=== PATIENT | female | born 1965 | race Caucasian/White ===

== ENCOUNTER → 2020-03-15 13:19 | Outpatient (CLI) | payer OTHER, SELFPAY ==
--- NOTE | ~2020-03-15 | MM_ITS ---
EXAMINATION: MM screening angelica BI w rosio HISTORY: Screening mammogram TECHNIQUE: Craniocaudal and mediolateral oblique 3-D tomosynthesis images were obtained and synthetic 2-D images were generated. CAD analysis was submitted and interpreted. COMPARISON: Comparison to multiple prior studies sequentially, with oldest reviewed study dated 04/2012. BREAST PARENCHYMAL COMPOSITION: The breasts are heterogeneously dense, which may obscure small masses . FINDINGS: There is no evidence of suspicious mass, calcification, or architectural distortion to sugg est malignancy in either breast. There has been no suspicious interval change. IMPRESSION: 1. No mammographic evidence of malignancy. 2. Recommend routine screening mammography in one year. BI-RADS Category 1: Negative Reviewed, dictated and finalized at location A.
== END ==
PROVIDERS: Visit Provider Obstetrics & Gynecology
DX: Z12.31 Encounter for screening mammogram for malignant neoplasm of breast (principal)
CPT/HCPCS: 77063; 77067

== ENCOUNTER 2020-05-31 11:45 | Outpatient (CLI) | payer OTHER, SELFPAY ==
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
== END 2020-05-31 11:46 | disposition home or self-care (01) ==
PROVIDERS: PCP Family Medicine; Visit Provider Physician Assistant
DX: S22.42XA Multiple fractures of ribs, left side, initial encounter for closed fracture (principal); X58.XXXA Exposure to other specified factors, initial encounter; M25.422 Effusion, left elbow; M19.022 Primary osteoarthritis, left elbow
CPT/HCPCS: 71046; 71100; 73030; 73080

== ENCOUNTER → 2020-06-15 10:15 | Outpatient (CLI) | payer OTHER, SELFPAY ==
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
== END ==
PROVIDERS: Visit Provider Orthopaedic Surgery
DX: M81.0 Age-related osteoporosis without current pathological fracture (principal); M85.852 Other specified disorders of bone density and structure, left thigh; M85.851 Other specified disorders of bone density and structure, right thigh
CPT/HCPCS: 77080

== ENCOUNTER → 2021-01-17 12:26 | Outpatient (CLI) | payer OTHER, SELFPAY ==
--- NOTE | ~2021-01-17 | XR_ITS ---
EXAMINATION: XR chest 2V DATE: 01/17/2021 12:46 INDICATION: Chest pain, unspecified TECHNIQUE: PA and lateral views of the chest are obtained. COMPARISON: 05/31/2020 FINDINGS: The lungs are free of acute opacities. There is no pleural effusion or pneumothorax. The ca rdiomediastinal silhouette is normal. Old left-sided rib fractures are noted. There is mild thoracic spondylosis. IMPRESSION: 1. No acute cardiopulmonary abnormality. Reviewed, dictated and finalized at location A. EL LOGGER
== END ==
PROVIDERS: PCP Family Medicine; Visit Provider Family Medicine
DX: R07.9 Chest pain, unspecified (principal)
CPT/HCPCS: 71046

== ENCOUNTER → 2021-02-08 12:47 | Outpatient (CLI) | payer OTHER, SELFPAY ==
--- NOTE | ~2021-02-08 | CT_ITS ---
EXAMINATION: CT abdomen wo/w con EXAM DATE: 02/08/2021 13:28 INDICATION: Abnormal endocrine study. TECHNIQUE: Spiral CT of the abdomen was performed without and then with intravenous injection of 100 mL Omnipaque 350. Multi phase postcontrast imaging, adrenal protocol. Axial, coronal and sagittal im ages were reviewed. The dose-length product (DLP) for this examination was 346.80 mGy-cm. The expos ure was tailored according to patient size (auto mA exposure control), and iterative reconstruction ( ASIR) was used as additional dose reduction technique. There is no prior study for comparison. FINDINGS: No paraspinal mass identified. The liver, spleen, adrenal glands and pancreas are unremark able. Gallbladder is unremarkable. No biliary obstruction. Portal and splenic veins are patent. K idneys enhance symmetrically. There is no hydronephrosis. There is no retroperitoneal lymphadenop athy. The stomach and small bowel are unremarkable. There is expected amount of colonic stool. No free i ntraperitoneal gas. The heart is normal in size. There are no pericardial or pleural effusions. T he lung bases are unremarkable. The bones are unremarkable. IMPRESSION: No adrenal or paraspinal mass. Normal CT abdomen. Reviewed, dictated and finalized at location B. LIFT OPERATOR
== END ==
PROVIDERS: PCP Family Medicine; Visit Provider Internal Medicine Endocrinology, Diabetes & Metabolism
DX: R94.7 Abnormal results of other endocrine function studies (principal)
CPT/HCPCS: 74170; Q9967

== ENCOUNTER → 2021-02-27 08:51 | Outpatient (CLI) | payer OTHER, SELFPAY ==
--- NOTE | ~2021-02-27 | MR_ITS ---
EXAMINATION: MR pituitary wo/w con EXAM DATE: 02/27/2021 09:51 INDICATION: Pituitary function test abnormal abnormal pituitary function test. TECHNIQUE: Magnetic resonance imaging (MRI) of the brain/brain stem obtained without contrast. Sagit anton T1, axial diffusion, gradient echo (T2*), T1, T2, FLAIR sequences obtained. Patient was then inj ected with 10 cc intravenous Multihance contrast. Axial and coronal postcontrast T1 weighted sequence s obtained. A pituitary protocol was utilized including dynamic imaging through the pituitary gland d uring intravenous injection of contrast. There are no prior studies for comparison. FINDINGS: The pituitary gland is confined to the sella turcica. Suprasellar region normal in appear ance. The optic chiasm normal. Infundibulum is midline. No definite pituitary microadenoma identif ied. Please note small microadenomas can cause endocrine abnormalities but are not always identified by imaging even using dedicated pituitary protocol. This does exclude macroadenoma or need for surg ical management. There are no areas of restricted diffusion to suggest acute infarction. There is no acute hemorrhage seen on the T2*, a hemosiderin sensitive sequence. No intraparenchymal brain mass. The ventricles a re normal in size. There are no extra-axial collections. Flow voids are seen in the cerebral arteri es on the T2-weighted sequences consistent with their expected patency. The orbits are unremarkable. Soft tissue is unremarkable. IMPRESSION: 1. Normal MR brain/pituitary exam. Reviewed, dictated and finalized at location A.
[2021-02-27 09:11] LABS: Estimated Glomerular Filt Rate > 60
== END ==
PROVIDERS: PCP Family Medicine; Visit Provider Internal Medicine Endocrinology, Diabetes & Metabolism
DX: R94.7 Abnormal results of other endocrine function studies (principal)
CPT/HCPCS: 70553; A9577

== ENCOUNTER → 2022-01-24 14:42 | Outpatient (CLI) | payer OTHER, SELFPAY ==
--- NOTE | ~2022-01-24 | MM_ITS ---
EXAMINATION: MM screening angelica BI w rosio HISTORY: Screening mammogram TECHNIQUE: Craniocaudal and mediolateral oblique 3-D tomosynthesis images were obtained and synthetic 2-D images were generated. CAD analysis was submitted and interpreted. COMPARISON: 03/15/2020, 08/26/2018, 06/19/2017 bilateral screening mammogram examinations BREAST PARENCHYMAL COMPOSITION: The breasts are heterogeneously dense, which may obscure small masses . FINDINGS: There is no evidence of suspicious mass, calcification, or architectural distortion to sugg est malignancy in either breast. There has been no suspicious interval change. IMPRESSION: 1. No mammographic evidence of malignancy. 2. Recommend routine screening mammography in one year. BI-RADS Category 1: Negative Reviewed, dictated and finalized at location A. NISTRATIVE JUDGE
== END ==
PROVIDERS: PCP Family Medicine; Visit Provider Obstetrics & Gynecology
DX: Z12.31 Encounter for screening mammogram for malignant neoplasm of breast (principal)
CPT/HCPCS: 77063; 77067

== ENCOUNTER → 2022-09-24 08:50 | Outpatient (CLI) | payer OTHER, SELFPAY ==
--- NOTE | ~2022-09-24 | DEXA_ITS ---
Bone Density Report Name: ZAC ROSARIO Age: 57 Sex: Female Ethnicity: White Date of : 1965 Indication: postmenopausal osteoporosis; Referring Provider: MARGRET, BAKARI Study: Bone densitometry was performed. Exam Date: September 24, 2022 Accession number: [id number] Bone Density: Region BMD T-score Z-score Classification AP Spine (L1-L4) 0.694 -3.2 -1.8 Osteoporosis Femoral Neck (Left) 0.598 -2.3 -1.0 Osteopenia Total Hip (Left) 0.697 -2.0 -1.1 Osteopenia Femoral Neck (Right) 0.633 -1.9 -0.7 Osteopenia Total Hip (Right) 0.647 -2.4 -1.5 Osteopenia Total Hip Mean 0.672 -2.2 -1.3 Osteopenia World Health Organization criteria for BMD impression classify patients as: Normal (T-score at or above -1.0), Osteopenia (T-score between -1.0 and -2.5), or Osteoporosis (T-score at or below -2.5). 10-year Fracture Risk: FRAX not reported because: Some T-score for Spine Total or Hip Total or Femoral Neck at or below -2.5 Previous Exams: Region Exam Age BMD T-score BMD Change BMD Change Date g/cm2 vs Baseline vs Previous AP Spine(L1-L4) 09/24/2022 57 0.694 -3.2 0.001 0.001 06/15/2020 55 0.693 -3.2 Total Hip(Left) 09/24/2022 57 0.697 -2.0 0.001 0.001 06/15/2020 55 0.696 -2.0 Total Hip(Right) 09/24/2022 57 0.647 -2.4 -0.040* -0.040* 06/15/2020 55 0.687 -2.1 *Denotes significance at 95% confidence level, LSC for AP Spine = 0.022 g/cm2, LSC for Total Hip = 0.027 g/cm2 Clinical Information Provided by Patient: Has used the following medications: Calcium, calcium includes vit D, MTV Patient maximum height was 68.5 Menopause Age: 52 No regular weight bearing exercise Drinks caffeinated beverages Onset of menses at age 14 Number of children 3 Missed period for more than 6 months in a row Impression: The patient has osteoporosis, based on the Total Spine T-score. The BMD for the Total Hip(Right) decreased, changing by -0.040 since the last DXA exam. Discussion: INCREASED RISK OF FRACTURE. BONE DENSITY IS UNDESIRABLY LOW AT ONE OR MORE SKELETAL SITES, CONSISTENT WITH POSTMENOPAUSAL OSTEOPOROSIS. This patient's lowest T-score meets the World Health Organization's (WHO) criteria for osteoporosis at one or more sites (T-score -2.5 or below). In untreated patients, the risk of osteoporotic fracture increases approximately two-fold for each 1.0 SD decrease in T-score. Low bone density
== END ==
PROVIDERS: PCP Family Medicine; Visit Provider Nurse Practitioner
DX: M81.0 Age-related osteoporosis without current pathological fracture (principal); M85.852 Other specified disorders of bone density and structure, left thigh; M85.851 Other specified disorders of bone density and structure, right thigh
CPT/HCPCS: 77080

== ENCOUNTER 2023-01-28 14:27 | Outpatient (CLI) | payer OTHER, SELFPAY ==
--- NOTE | ~2023-01-28 | MM_ITS ---
EXAMINATION: MM screening angelica BI w rosio HISTORY: Screening mammogram TECHNIQUE: Craniocaudal and mediolateral oblique 3-D tomosynthesis images were obtained and synthetic 2-D images were generated. CAD analysis was submitted and interpreted. COMPARISON: January 24, 2022, March 15, 2020, August 26, 2018 bilateral screening mammogram exam[place] BREAST PARENCHYMAL COMPOSITION: The breasts are heterogeneously dense, which may obscure small masses . FINDINGS: There is no evidence of suspicious mass, calcification, or architectural distortion to sugg est malignancy in either breast. There has been no suspicious interval change. IMPRESSION: 1. No mammographic evidence of malignancy. 2. Recommend routine screening mammography in one year. BI-RADS Category 1: Negative Reviewed, dictated and finalized at location A. 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
== END 2023-01-28 14:28 | disposition home or self-care (01) ==
LOC: ANHIMG 14:28
PROVIDERS: PCP Family Medicine; Visit Provider Obstetrics & Gynecology
DX: Z12.31 Encounter for screening mammogram for malignant neoplasm of breast (principal)
CPT/HCPCS: 77063; 77067

== ENCOUNTER 2023-09-12 00:53 | Day surgery (SDC) | payer OTHER, SELFPAY ==
[2023-08-30 15:14] VITALS: BMI 19.6
--- NOTE | 2023-09-11 15:12 | PM.HPGS ---
History of Present Illness History of Present Illness Consent: Risks, benefits, and alternatives have been discussed and questions answered. Patient agrees to proceed with procedure. Chief complaint: Epigastric pain Narrative: Catarina Nuno is a 58 year old female Who was referred for investigation of epigastric pain is substernal pain that has been present for about 6 months. The pain is worse if she does not eat regularly. It can radiate around to the back. Review of Systems Review of Systems: All systems reviewed & are unremarkable except as noted in HPI and below PMFSH Past Medical History Medical History Acne GERD (gastroesophageal reflux disease) Heart murmur Hyperlipidemia Lumbar spinal stenosis Rash Screening mammogram, encounter for Surgical History Surgical History History of gynecological procedure (09/07/04) hscope EMB / Benign Hx of dilation and curettage (06/02/15) Hscope D&C/ Novasure Ablation S/P left oophorectomy (05/06/98) laparoscopic left oopherectomy / cystadenoma S/P tendon repair (03/02/09) finger tendon surgery S/P tendon repair (10/22/08) finger tendon surgery Family History Family History Mother Heart disease Hypertension Embolism Sibling Alcohol abuse sister and brother Grandparent No problems noted. 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 Gender identity (if verbalized by the patient): Female Sexual Orientation (if Verbalized by the Patient): Straight or Heterosexual Spiritual care concerns: No Meds Home Medications and Allergies Home Medications Medication Instructions Recorded Confirmed Type pimecrolimus 1 % topical cream 1 applic topical BID 02/01/21 09/12/23 History (Mora) epinephrine 0.3 mg/0.3 mL 0.3 mg (0.3 mL) IM Q4H PRN 03/14/22 09/12/23 Rx injection, auto-injector (EpiPen anaphylaxis #2 ea 2-Aba) multivitamin 1 tablet PO DAILY 01/28/23 09/12/23 History atorvastatin 40 mg tablet 40 mg PO DAILY #30 tabs 05/01/23 09/12/23 Rx ezetimibe 10 mg tablet 10 mg PO DAILY #30 tabs 05/01/23 09/12/23 Rx Lactobacillus 1 cap PO DAILY 08/30/23 09/12/23 History acidophilus-Bifidobac.animalis 2.5 billion cell capsule (Daily Probiotic) calcium citrate 200 mg (950 mg) 200 mg PO DAILY 08/30/23 09/12/23 History tablet Allergies Allergy/AdvReac Type Severity Reaction Status Date / Time Sulfa (Sulfonamide Allergy Mild rash Verified 09/12/23 08:12 Antibiotics) sulfamethoxazole Allergy Mild rash Verified 09/12/23 08:12 erythromycin base Allergy Unknown throat Verified 09/12/23 08:12 swelling Penicillins Allergy Unknown rash Verified 09/12/23 08:12 sulfamethizole Allergy Unknown rash Verified 09/12/23 08:12 tetracycline Allergy Unknown Rash Verified 09/12/23 08:12 trimethoprim Allergy Unknown rash Verified 09/12/23 08:12 Exam Const: General: alert Orientation/consciousness: patient oriented x3 Resp: Auscultation: clear to auscultation bilaterally Cardio: Rhythm: regular rhythm GI: GI Palp: Yes Soft to palpation and No Tenderness to palpation present (GI) Neuro: General: patient oriented x3 Assessment and Plan Assessment and plan (1) Epigastric pain: Code(s): R10.13 - Epigastric pain Status: Acute Assessment and Plan: EGD with possible biopsy or dil
[2023-09-12 08:13] VITALS: BP 126/77; PULSE 60; RESP 16; TEMP 36.1; O2SAT 100; BMI 18.9
[2023-09-12] MEDS: LACTATED RINGERS 1,000 ML 150 ML IV CONT (08:26)
--- NOTE | 2023-09-12 09:13 | WPDANESEPPF ---
Anes - Initial Pre Proc Eval Procedure: Operation Date: 09/12/23 09:30 Proposed Procedures p Esophagogastroduodenoscopy EGD - Phillip Carmona MD Date/Time: 09/12/23 09:13 Surgeon: Phillip Carmona MD Pre Op Diagnosis: Epigastric pain Patient Data Age: 58 Gender: F Height: 1.7 m Weight: 54.9 kg Last Vital Signs Temp 97 F L 09/12/23 08:13 Pulse 60 09/12/23 08:13 Resp 16 09/12/23 08:13 BP 126/77 09/12/23 08:13 Pulse Ox 100 09/12/23 08:13 O2 Del Method Room Air 09/12/23 08:13 Allergies Allergy/AdvReac Type Severity Reaction Status Date / Time Sulfa (Sulfonamide Allergy Mild rash Verified 09/12/23 08:12 Antibiotics) sulfamethoxazole Allergy Mild rash Verified 09/12/23 08:12 erythromycin base Allergy Unknown throat Verified 09/12/23 08:12 swelling Penicillins Allergy Unknown rash Verified 09/12/23 08:12 sulfamethizole Allergy Unknown rash Verified 09/12/23 08:12 tetracycline Allergy Unknown Rash Verified 09/12/23 08:12 trimethoprim Allergy Unknown rash Verified 09/12/23 08:12 Home Medications Medication Instructions Recorded Confirmed Type pimecrolimus 1 % topical cream 1 applic topical BID 02/01/21 09/12/23 History (Elidel) epinephrine 0.3 mg/0.3 mL 0.3 mg (0.3 mL) IM Q4H PRN 03/14/22 09/12/23 Rx injection, auto-injector (EpiPen anaphylaxis #2 ea 2-Aba) multivitamin 1 tablet PO DAILY 01/28/23 09/12/23 History atorvastatin 40 mg tablet 40 mg PO DAILY #30 tabs 05/01/23 09/12/23 Rx ezetimibe 10 mg tablet 10 mg PO DAILY #30 tabs 05/01/23 09/12/23 Rx Lactobacillus 1 cap PO DAILY 08/30/23 09/12/23 History acidophilus-Bifidobac.animalis 2.5 billion cell capsule (Daily Probiotic) calcium citrate 200 mg (950 mg) 200 mg PO DAILY 08/30/23 09/12/23 History tablet Patient hx anesthesia problems: none Family hx anesthesia problems: none Results Review: All pre-operative results and documents have been reviewed as part of the pre-operative evaluation. [facility] Past Medical History Medical History Acne GERD (gastroesophageal reflux disease) Heart murmur Hyperlipidemia Lumbar spinal stenosis Rash Screening mammogram, encounter for Surgical History Surgical History History of gynecological procedure (09/07/04) hscope EMB / Benign Hx of dilation and curettage (06/02/15) Hscope D&C/ Novasure Ablation S/P left oophorectomy (05/06/98) laparoscopic left oopherectomy / cystadenoma S/P tendon repair (03/02/09) finger tendon surgery S/P tendon repair (10/22/08) finger tendon surgery Family History Family History Mother Heart disease Hypertension Embolism Sibling Alcohol abuse sister and brother Grandparent No problems noted. 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
[2023-09-12 09:35] VITALS: BP 100/67; PULSE 62; RESP 20; O2SAT 99
[2023-09-12 09:45] VITALS: BP 120/84; PULSE 62; RESP 20; O2SAT 100
[2023-09-12 09:55] VITALS: BP 122/83; PULSE 60; RESP 20; O2SAT 100
== END 2023-09-12 10:03 | disposition home or self-care (01) ==
PROVIDERS: PCP Family Medicine; Visit Provider Internal Medicine Gastroenterology
PROC: 0DJ08ZZ Inspection of Upper Intestinal Tract, Via Natural or Artificial Opening Endoscopic (ICD-10-PCS; CPT 43235; principal; 2023-09-12 09:30)
DX: R10.13 Epigastric pain (principal); K21.00 Gastro-esophageal reflux disease with esophagitis, without bleeding; K25.9 Gastric ulcer, unspecified as acute or chronic, without hemorrhage or perforation; K29.70 Gastritis, unspecified, without bleeding; E78.5 Hyperlipidemia, unspecified
CPT/HCPCS: 43239; 87081; 88305; J2704; J7120

== ENCOUNTER → 2024-02-03 12:22 | Outpatient (CLI) | payer OTHER, SELFPAY ==
--- NOTE | ~2024-02-03 | MM_ITS ---
EXAMINATION: MM screening angelica BI w rosio HISTORY: Screening mammogram TECHNIQUE: Craniocaudal and mediolateral oblique 3-D tomosynthesis images were obtained and synthetic 2-D images were generated. CAD analysis was submitted and interpreted. COMPARISON: January 28, 2023, 02/18/2022, March 15, 2020 bilateral screening mammogram examinations BREAST PARENCHYMAL COMPOSITION: The breasts are heterogeneously dense, which may obscure small masses . FINDINGS: There is no evidence of suspicious mass, calcification, or architectural distortion to sugg est malignancy in either breast. There has been no suspicious interval change. IMPRESSION: 1. No mammographic evidence of malignancy. 2. Recommend routine screening mammography in one year. BI-RADS Category 1: Negative Reviewed, dictated and finalized at location A. VAN DRIVER
== END ==
PROVIDERS: PCP Family Medicine; Visit Provider Obstetrics & Gynecology
DX: Z12.31 Encounter for screening mammogram for malignant neoplasm of breast (principal)
CPT/HCPCS: 77063; 77067

== ENCOUNTER 2024-03-09 01:49 | Day surgery (SDC) | payer OTHER, SELFPAY ==
[2024-02-27 13:36] VITALS: BMI 18.8
--- NOTE | 2024-03-06 09:49 | SUR.PREOP ---
Patient called regarding upcoming procedure- no answer.
[2024-03-09 12:06] VITALS: BP 141/91; PULSE 70; RESP 18; TEMP 36.3; O2SAT 100
[2024-03-09] MEDS: LACTATED RINGERS 1,000 ML 150 ML IV CONT (12:25)
--- NOTE | 2024-03-09 13:42 | WPDANESEPPF ---
Anes - Initial Pre Proc Eval Procedure: Operation Date: 03/09/24 13:00 Proposed Procedures p Esophagogastroduodenoscopy & Colonoscopy - Lamine Jackson MD Date/Time: 03/09/24 13:42 Surgeon: Lamine Jackson MD Pre Op Diagnosis: Gastric ulcer, GERD, Hemorrhage of anus/rectum Patient Data Age: 59 Gender: F Height: 1.7 m Weight: 52.4 kg Last Vital Signs Temp 97.4 F L 03/09/24 12:06 Pulse 70 03/09/24 12:06 Resp 18 03/09/24 12:06 BP 141/91 H 03/09/24 12:06 Pulse Ox 100 03/09/24 12:06 O2 Del Method Room Air 03/09/24 12:06 Allergies Allergy/AdvReac Type Severity Reaction Status Date / Time Sulfa (Sulfonamide Allergy Mild rash Verified 03/09/24 12:01 Antibiotics) sulfamethoxazole Allergy Mild rash Verified 03/09/24 12:01 erythromycin base Allergy Unknown throat Verified 03/09/24 12:01 swelling Penicillins Allergy Unknown rash Verified 03/09/24 12:01 sulfamethizole Allergy Unknown rash Verified 03/09/24 12:01 tetracycline Allergy Unknown Rash Verified 03/09/24 12:01 trimethoprim Allergy Unknown rash Verified 03/09/24 12:01 Home Medications Medication Instructions Recorded Confirmed Type pimecrolimus 1 % topical cream 1 applic topical BID 02/01/21 02/27/24 History (Elidel) epinephrine 0.3 mg/0.3 mL 0.3 mg (0.3 mL) IM Q4H PRN 03/14/22 02/27/24 Rx injection, auto-injector (EpiPen anaphylaxis #2 ea 2-Aba) multivitamin 1 tablet PO DAILY 01/28/23 02/27/24 History atorvastatin 40 mg tablet 40 mg PO DAILY #30 tabs 05/01/23 02/27/24 Rx ezetimibe 10 mg tablet 10 mg PO DAILY #30 tabs 05/01/23 02/27/24 Rx Lactobacillus 1 cap PO DAILY 08/30/23 02/27/24 History acidophilus-Bifidobac.animalis 2.5 billion cell capsule (Daily Probiotic) calcium citrate 200 mg (950 mg) 200 mg PO DAILY 08/30/23 02/27/24 History tablet pantoprazole 20 mg tablet,delayed 20 mg PO DAILY 02/27/24 02/27/24 History release Patient hx anesthesia problems: none Family hx anesthesia problems: none Results Review: All pre-operative results and documents have been reviewed as part of the pre-operative evaluation. [facility] Past Medical History Medical History Acne Anal skin tag Bright red blood per rectum GERD (gastroesophageal reflux disease) Heart murmur Hyperlipidemia Lumbar spinal stenosis Rash Screening mammogram, encounter for Surgical History Surgical History History of gynecological procedure (09/07/04) hscope EMB / Benign Hx of dilation and curettage (06/02/15) Hscope D&C/ Novasure Ablation S/P left oophorectomy (05/06/98) laparoscopic left oopherectomy / cystadenoma S/P tendon repair (03/02/09) finger tendon surgery S/P tendon repair (10/22/08) finger tendon surgery Family History Family History Mother Heart disease Hypertension Embolism Sibling Alcohol abuse sister and brother Grandparent No problems noted. Other Breast cancer maternal aunt Social History Social History Smoking status: Never smoker Second hand tobacco smoke exposure: No Alcohol intake: former Drinks per week: 4 Alcohol use details: weekends Substance use: never Substance use type: does not use Do You Feel Safe in your Home?: Yes Lack of Transportation: No Lack of Food: Never True Current Housing: I Have Housing Concerned About Future Housing: No Difficulty Paying Gas/Electric Bills: No Difficulty Paying for Meds: No Currently Unemployed: No Education: Bachelor's Degree Difficulty w/ Childcare or Family Care: No Living arrangements: with family Additional living arrangements comments: spouse Occupation/Education: retired Gender identity (if verbalized by the patient): Female Sexu
--- NOTE | 2024-03-09 13:57 | WPDHPUPDATE1 ---
History and Physical Update Update Date/Time: 03/09/24 13:57 History and Physical has been reviewed, including an updated exam of the patient. There are NO changes in the patient's condition. Risks, benefits, and alternatives have been discussed and questions answered. Patient agrees to proceed with procedure.
[2024-03-09 14:25] VITALS: BP 114/77; PULSE 70; RESP 28; O2SAT 100
--- NOTE | 2024-03-09 14:25 | SUR.OPER ---
EGD START 1409, END 1411 COLONOSCOPY START 1415, END 1423
[2024-03-09 14:35] VITALS: BP 112/78; PULSE 66; RESP 13; O2SAT 100
[2024-03-09 14:45] VITALS: BP 114/77; PULSE 72; RESP 14; O2SAT 100
== END 2024-03-09 14:51 | disposition home or self-care (01) ==
PROVIDERS: PCP Family Medicine; Visit Provider Internal Medicine Gastroenterology
PROC: 0DJ08ZZ Inspection of Upper Intestinal Tract, Via Natural or Artificial Opening Endoscopic (ICD-10-PCS; CPT 43235; principal; 2024-03-09 13:00)
DX: K25.9 Gastric ulcer, unspecified as acute or chronic, without hemorrhage or perforation (principal); K64.8 Other hemorrhoids; K21.9 Gastro-esophageal reflux disease without esophagitis; R01.1 Cardiac murmur, unspecified; E78.5 Hyperlipidemia, unspecified; Z98.890 Other specified postprocedural states; Z80.3 Family history of malignant neoplasm of breast; Z82.49 Family history of ischemic heart disease and other diseases of the circulatory system
CPT/HCPCS: 43239; 45378; 88305; J2704; J7120

== ENCOUNTER 2024-07-20 11:21 | Emergency (ER) | payer OTHER, SELFPAY ==
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
--- NOTE | ~2024-07-20 | XR_ITS ---
EXAMINATION: XR sacrum coccyx min 2V DATE: 07/20/2024 12:52 INDICATION: Sacrococcygeal injury and pain. TECHNIQUE: 3 views of the sacrum and coccyx were obtained. COMPARISON: Pelvis radiograph 10/02/2016 FINDINGS: There is a fracture of left parasymphyseal pubis. There is mild osteoarthritis of the sacro iliac joints. Osteitis pubis is noted. IMPRESSION: 1. Fracture of left parasymphyseal pubis. Reviewed, dictated and finalized at location A.
--- NOTE | ~2024-07-20 | XR_ITS ---
EXAMINATION: XR lumbar spine 2-3V DATE: 07/20/2024 12:52 INDICATION: Low back pain. Fall. TECHNIQUE: 3 views of lumbar spine were obtained. COMPARISON: None. FINDINGS: There is 4 mm anterolisthesis of L4 on L5. Vertebral body heights are normal. There is mild ly decreased disc height at L4-L5 and moderately decreased disc height at L5-S1. There is multilevel facet joint osteoarthritis, severe at L4-L5. IMPRESSION: 1. Moderate lower lumbar spondylosis. Reviewed, dictated and finalized at location A.
--- NOTE | ~2024-07-20 | XR_ITS ---
EXAMINATION: XR femur LT min 2V DATE: 07/20/2024 12:52 INDICATION: Left thigh injury and pain. TECHNIQUE: 2 views of left femur on 4 radiographs were obtained. COMPARISON: None. FINDINGS: Bone alignment is normal. There is a fracture of left parasymphyseal pubis. Joint spaces ar e normal. No knee joint effusion. IMPRESSION: 1. Fracture of left parasymphyseal pubis. Reviewed, dictated and finalized at location A.
--- NOTE | ~2024-07-20 | XR_ITS ---
EXAMINATION: XR shoulder LT min 2V DATE: 07/20/2024 12:51 INDICATION: Left shoulder injury and pain. TECHNIQUE: 4 views of left shoulder were obtained. COMPARISON: Left shoulder radiograph 05/31/2020 FINDINGS: Alignment is normal. No acute fracture. There is an old healed fracture of distal left clav icle. There are old healed left rib fractures. Joint spaces are normal. IMPRESSION: 1. Normal left shoulder. Reviewed, dictated and finalized at location A. IMPRESSION: 1. Normal left shoulder.
--- NOTE | ~2024-07-20 | XR_ITS ---
EXAMINATION: XR hip LT 2V w AP pelvis DATE: 07/20/2024 12:53 INDICATION: Left hip injury and pain. TECHNIQUE: An anteroposterior view of the pelvis and 2 views of left hip were obtained. COMPARISON: None. FINDINGS: Bone alignment is normal. There is a fracture of left parasymphyseal pubis. There is modera te right hip osteoarthritis. Left hip joint space is normal. IMPRESSION: 1. Fracture of left parasymphyseal pubis. Reviewed, dictated and finalized at location A.
[2024-07-20 11:18] VITALS: BP 114/83; PULSE 77; RESP 16; O2SAT 100
[2024-07-20] MEDS: KETOROLAC 30 MG/ML VIAL (*BKC) IV PUSH (12:54)
[2024-07-20 13:01] VITALS: BP 129/86; PULSE 71; RESP 12; O2SAT 97
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
[2024-07-20 13:25] VITALS: BP 147/93; PULSE 76; RESP 15; O2SAT 100
[2024-07-20 13:31] VITALS: BP 121/86; PULSE 80; RESP 19; O2SAT 98
[2024-07-20 14:16] VITALS: BP 132/87; PULSE 79; RESP 15; O2SAT 100
== END 2024-07-20 15:16 | disposition home or self-care (01) ==
PROVIDERS: Emergency Provider Emergency Medicine; PCP Family Medicine
DX: M25.512 Pain in left shoulder (principal); S32.592A Other specified fracture of left pubis, initial encounter for closed fracture; M47.816 Spondylosis without myelopathy or radiculopathy, lumbar region; K21.9 Gastro-esophageal reflux disease without esophagitis; E78.5 Hyperlipidemia, unspecified; V18.0XXA Pedal cycle driver injured in noncollision transport accident in nontraffic accident, initial encounter
CPT/HCPCS: 72100; 72192; 72220; 73030; 73502; 73552; 96374; 99284; J1885

== ENCOUNTER 2024-09-04 08:39 | Outpatient (CLI) | payer OTHER, SELFPAY ==
--- NOTE | ~2024-09-04 | MR_ITS ---
MRI of the lumbar spine Clinical History: Back pain Technique: Axial T2-weighted images, and sagittal T1-weighted, T2-weighted, and T2 fat-sat images wer e acquired. Findings: No fracture seen. There is 3 mm anterolisthesis of L4 over L5. There is 2 mm retrolisthesis of L5 over S1. No bone marrow signal abnormality seen. At L1-L2 and L2-L3, intervertebral discs maintain normal signal and position. No disc bulge or hernia tion at these levels. No spinal canal stenosis or neural foraminal narrowing. At L3-L4, there is mild disc desiccation. There is minimal disc bulge and minimal facet hypertrophy. No central canal stenosis or definite neural foraminal narrowing. At L4-L5, there is disc bulge/uncovering with advanced facet arthropathy. There is moderate to severe spinal canal stenosis. Neural foramina are relatively well preserved, possible minimal narrowing. At L5-S1, there is disc bulge and mild to moderate facet arthropathy. No central canal stenosis. Ther e is mild bilateral neural foraminal narrowing. Paravertebral soft tissues are unremarkable. Impression: Moderate to severe spinal canal stenosis at L4-L5, as detailed above. 3 mm anterolisthesis at this le janis. Additional mild degenerative changes, as above. Reviewed, dictated and finalized at location . Impression: Moderate to severe spinal canal stenosis at L4-L5, as detailed above. 3 mm ante rolisthesis at this level. Additional mild degenerative changes, as above.
== END 2024-09-04 08:40 | disposition home or self-care (01) ==
LOC: MICIMG 08:40
PROVIDERS: PCP Family Medicine; Visit Provider Physician Assistant Surgical
DX: M51.369 Other intervertebral disc degeneration, lumbar region without mention of lumbar back pain or lower extremity pain (principal)
CPT/HCPCS: 72148

== ENCOUNTER 2024-09-19 15:49 | Emergency (ER) | payer OTHER, SELFPAY ==
--- NOTE | ~2024-09-19 | XR_ITS ---
XR wrist LT min 3V Ordering provider: DEBORAH Lino History: . left wrist pain after flicking wrist. radial side pain . Comparison: None. FINDINGS: BONES: No acute fracture or dislocation. No definite scaphoid fracture. JOINT SPACES: Well maintained. SOFT TISSUES: Normal. IMPRESSION: No acute osseous abnormality left wrist. Reviewed, dictated and finalized at location A.
[2024-09-19 16:05] VITALS: BP 148/95; PULSE 74; RESP 16; TEMP 36.8; O2SAT 100
--- NOTE | 2024-09-19 16:12 | ED.UPPEXIN ---
HPI - Extremity Injury (Upper) General Chief Complaint: Extremity Injury, Upper Stated Complaint: Left Wrist Injury Time Seen by Provider: 09/19/24 15:59 Source: patient and RN notes reviewed Mode of arrival: ambulatory Limitations: no limitations History of Present Illness HPI narrative: Patient presents today complaining of left wrist pain. Approximately 1 hour prior to arrival patient was crocheting at home when she quickly flicked her wrist sideways and felt a pop. States she has significant osteoporosis and is wondering if her wrist is broken. Denies numbness or tingling. Pain increases with movement. Currently rates her pain 4/10 at rest. No [id number] interventions prior to arrival aside from the mobilizing in a Velcro splint. Related Data Home Medications Medication Instructions Recorded Confirmed pimecrolimus 1 % topical cream 1 applic topical BID 02/01/21 09/19/24 (Elidel) multivitamin 1 tablet PO DAILY 01/28/23 09/19/24 Lactobacillus 1 cap PO DAILY 08/30/23 09/19/24 acidophilus-Bifidobac.animalis 2.5 billion cell capsule (Daily Probiotic) calcium citrate 200 mg PO DAILY 08/30/23 09/19/24 Allergies Allergy/AdvReac Type Severity Reaction Status Date / Time Sulfa (Sulfonamide Allergy Mild rash Verified 09/19/24 15:57 Antibiotics) sulfamethoxazole Allergy Mild rash Verified 09/19/24 15:57 erythromycin base Allergy Unknown throat Verified 09/19/24 15:57 swelling Penicillins Allergy Unknown rash Verified 09/19/24 15:57 sulfamethizole Allergy Unknown rash Verified 09/19/24 15:57 tetracycline Allergy Unknown Rash Verified 09/19/24 15:57 trimethoprim Allergy Unknown rash Verified 09/19/24 15:57 Review of Systems Review of Systems: CONSTITUTIONAL: Denies body aches, fever, chills, or sweats. EYES: Denies visual changes, redness, or discharge. ENT: Denies rhinorrhea, congestion, sore throat, or otalgia. CARDIOVASCULAR: Denies chest pain, palpitations, or edema. RESPIRATORY: Denies cough or dyspnea. GASTROINTESTINAL: Denies abdominal pain, nausea, vomiting, or diarrhea. GENITOURINARY: Denies dysuria or hematuria. SKIN: Denies rash, itching, or wounds. MUSCULOSKELETAL: Denies back pain, or myalgia.+ left wrist pain NEUROLOGIC: Denies headache, numbness, tingling, or weakness. PSYCH: Denies depression or anxiety. [facility] Past Medical History Medical History Acne Anal skin tag Bright red blood per rectum CAD (coronary artery disease) Fracture of pelvis GERD (gastroesophageal reflux disease) Heart murmur Hyperlipidemia Lumbar spinal stenosis Rash Screening mammogram, encounter for Surgical History Surgical History History of gynecological procedure (09/07/04) hscope EMB / Benign Hx of dilation and curettage (06/02/15) Hscope D&C/ Novasure Ablation S/P left oophorectomy (05/06/98) laparoscopic left oopherectomy / cystadenoma S/P tendon repair (03/02/09) finger tendon surgery S/P tendon repair (10/22/08) finger tendon surgery Family History Family History Mother Heart disease Hypertension Embolism Sibling Alcohol abuse sister and brother Grandparent No problems noted. Other Breast cancer maternal aunt Social History Social History Smoking status: Never smoker Second hand tobacco smoke exposure: No Alcohol intake: former Drinks per week: 4 Alcohol use details: weekends Substance use: never Substance use type: does not use Do You Feel Safe in your Home?: Yes Lack of Transportation: No Lack of Food: Never True Current Housing: I Have Housing Concerned About Future Housing: No Difficulty Paying Gas/Electric Bills: No Difficulty Paying for Meds: No Currently Unemployed: N
== END 2024-09-19 16:31 | disposition home or self-care (01) ==
PROVIDERS: Emergency Provider Nurse Practitioner; PCP Family Medicine
DX: S63.502A Unspecified sprain of left wrist, initial encounter (principal); X50.9XXA Other and unspecified overexertion or strenuous movements or postures, initial encounter; I25.10 Atherosclerotic heart disease of native coronary artery without angina pectoris; K21.9 Gastro-esophageal reflux disease without esophagitis; R01.1 Cardiac murmur, unspecified; E78.5 Hyperlipidemia, unspecified; M48.061 Spinal stenosis, lumbar region without neurogenic claudication
CPT/HCPCS: 73110; 99213; G0463

== ENCOUNTER 2024-12-04 12:47 | Outpatient (CLI) | payer OTHER, SELFPAY ==
--- NOTE | 2024-12-04 13:00 | ECG_ITS ---
Test Date: 2024-12-04 13:17:12 Measurements Intervals [place] Rate: 66 P: 60 [place]: 164 QRS: 53 QRSD: 78 T: 55 QT: 391 QTc: 410 Interpretive Statements SINUS RHYTHM WARNING: DATA QUALITY MAY AFFECT INTERPRETATION No previous ECG available for comparison Electronically Signed On 12-07-2024 15:05:06 INPATIENT SERVICES DIRECTOR by Jacob Gimenez M.D.
[2024-12-04 13:59] LABS: Hematocrit 43.3 % (37.0-47.0); Hemoglobin 14.7 g/dL (12.0-15.0); Mean Corpuscular HGB Conc 33.9 g/dl (32-36); Mean Corpuscular Hemoglobin 31.3 pg (26-34); Mean Corpuscular Volume 92.3 fl (80-100); Mean Platelet Volume 9.9 fl (7.4-10.4); Platelet Count Result 249 k/mm3 (150-375); Red Blood Count 4.69 M/mm3 (4.2-5.4); Red Cell Distribution Width 12.6 % (11.5-14.5); White Blood Count 5.4 K/mm3 (4.5-10.0)
== END 2024-12-04 12:48 | disposition home or self-care (01) ==
LOC: ANHSURGERY 12:50
PROVIDERS: PCP Family Medicine; Visit Provider Obstetrics & Gynecology
DX: E78.5 Hyperlipidemia, unspecified (principal); N83.209 Unspecified ovarian cyst, unspecified side
CPT/HCPCS: 36415; 85027; 93005

== ENCOUNTER 2024-12-15 13:10 | Outpatient (CLI) | payer OTHER, SELFPAY ==
--- NOTE | ~2024-12-15 | CT_ITS ---
EXAMINATION: CT brain wo con DATE: 12/15/2024 13:28 INDICATION: Headache, unspecified. TECHNIQUE: Computed tomography (CT) of the head was performed without intravenous contrast. The mA wa s adjusted according to patient size. Iterative reconstruction technique was employed. The dose-lengt h product was 599.57 mGy-cm. COMPARISON: None FINDINGS: There is no intracranial hemorrhage, acute infarction, or abnormal intracranial mass lesion . The ventricles are normal in size. The orbits are normal. There is minimal mucosal thickening in th e paranasal sinuses. The mastoid air cells are normal. IMPRESSION: 1. Normal brain. Reviewed, dictated and finalized at location A. 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 Normal brain.
--- NOTE | ~2024-12-15 | CT_ITS ---
EXAMINATION: CT cervical spine wo con DATE: 12/15/2024 13:28 INDICATION: Headache, unspecified. TECHNIQUE: Computed tomography (CT) of the cervical spine was performed without intravenous contrast. Automated exposure control and iterative reconstruction technique were employed. The dose-length pro duct was 127.16 mGy-cm. COMPARISON: None FINDINGS: There is mild scarring at the lung apices. There is 7 degrees dextrocurvature of cervical s pine. There is 2 mm retrolisthesis of C4 on C5 and C5 on C6. Vertebral body heights are normal. There is moderately decreased disc height at C4-C5 and severely decreased disc height at C5-C6 and C6-C7. The following disc levels are specifically discussed: C2-C3: There is mild left uncovertebral joint osteoarthritis. There is moderate left facet joint oste oarthritis. There is ankylosis of right facet joint without hypertrophy. There is no neural foraminal stenosis. There is no central canal stenosis. C3-C4: There is mild bilateral uncovertebral joint osteoarthritis. There is mild bilateral facet join t osteoarthritis. There is mild left neural foraminal stenosis. There is no central canal stenosis. C4-C5: There is mild right and severe left uncovertebral joint osteoarthritis. There is mild bilatera l facet joint osteoarthritis. There is mild left neural foraminal stenosis. There is mild central can al stenosis. C5-C6: There is moderate right and severe left uncovertebral joint osteoarthritis. There is mild bila teral facet joint osteoarthritis. There is mild right and moderate left neural foraminal stenosis. Th ere is mild central canal stenosis. C6-C7: There is severe bilateral uncovertebral joint osteoarthritis. There is severe bilateral facet joint osteoarthritis. There is mild right and moderate left neural foraminal stenosis. There is mild central canal stenosis. C7-T1: There is no uncovertebral joint osteoarthritis. There is mild right and moderate left facet tosha int osteoarthritis. There is mild left neural foraminal stenosis. There is no central canal stenosis. IMPRESSION: 1. Severe cervical spondylosis. Reviewed, dictated and finalized at location A. 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
== END 2024-12-15 13:11 | disposition home or self-care (01) ==
LOC: MICIMG 13:10
PROVIDERS: PCP Family Medicine; Visit Provider Physician Assistant Medical
DX: R51.9 Headache, unspecified (principal); Z87.81 Personal history of (healed) traumatic fracture; M47.892 Other spondylosis, cervical region
CPT/HCPCS: 70450; 72125

== ENCOUNTER 2025-01-04 09:09 | Outpatient (CLI) | payer OTHER, SELFPAY ==
--- NOTE | ~2025-01-04 | DEXA_ITS ---
Bone Density Report Name: ZAC ROSARIO Age: 59 Sex: Female Ethnicity: White Date of : 1965 Indication: postmenopausal; screening for osteoporosis; history of glucocorticoids; Referring Provider: Shilpa Huynh Study: Bone densitometry was performed. Exam Date: January 04, 2025 Accession number: [id number] Bone Density: Region BMD T-score Z-score Classification AP Spine(L1-L4) 0.664 -3.5 -1.9 Osteoporosis Femoral Neck (Left) 0.573 -2.5 -1.1 Osteoporosis Total Hip (Left) 0.651 -2.4 -1.3 Osteopenia Femoral Neck (Right) 0.632 -2.0 -0.6 Osteopenia Total Hip (Right) 0.640 -2.5 -1.4 Osteoporosis Femoral Neck Mean 0.602 -2.2 -0.9 Osteopenia Total Hip Mean 0.646 -2.4 -1.4 Osteopenia World Health Organization criteria for BMD impression classify patients as: Normal (T-score at or above -1.0), Osteopenia (T-score between -1.0 and -2.5), or Osteoporosis (T-score at or below -2.5). 10-year Fracture Risk: FRAX not reported because: Some T-score for Spine Total or Hip Total or Femoral Neck at or below -2.5 Clinical Information Provided by Patient: Has taken Glucocorticoids Has used the following medications: HRT (i.e. estrogen/hormone therapy), Vitamin D, Calcium Patient maximum height was 68 Menopause Age: 53 Drinks caffeinated beverages Onset of menses at age 13 Number of children 3 Impression: The patient has osteoporosis, based on the Total Spine T-score. The patient has risk factors, including: history of glucocorticoid therapy. Discussion: INCREASED RISK OF FRACTURE. BONE DENSITY IS UNDESIRABLY LOW AT ONE OR MORE SKELETAL SITES, CONSISTENT WITH POSTMENOPAUSAL OSTEOPOROSIS. This patient's lowest T-score meets the World Health Organization's (WHO) criteria for osteoporosis at one or more sites (T-score -2.5 or below). In untreated patients, the risk of osteoporotic fracture increases approximately two-fold for each 1.0 SD decrease in T-score. Low bone density is not the only risk factor for fracture; also consider factors such as patient's age, frailty or poor health, risk of falling, risk of injury, previous osteoporotic fracture, family history of osteoporosis, cigarette smoking, low body weight, etc. Not everyone with low bone mineral density has osteoporosis; osteomalacia and other metabolic bone disorders should also be considered. Patients who have osteoporosis should be evaluated for specific diseases and conditions (secondary causes) that may cause or contribute to bone loss. The [place] Association of Clinical Endocrinologists (AACE) and National Osteoporosis Foundation (NOF) recommend pharmacologic intervention for all postmenopausal women whose T-score is in this range. The patient should follow a healthful lifestyle (good nutrition with adequate calcium and vitamin D, and appropriate weight-bearing exercise). Follow-Up: Consider a repeat BMD and Vertebral Fracture Assessment (VFA) exam in 2 years or sooner if medically necessary, to reassess this patient's status. Reported by: LUZMARIA on 01/04/2025 9:25:00 AM. Reviewed, dictated and finalized at location A.
== END 2025-01-04 09:10 | disposition home or self-care (01) ==
LOC: CHSIMG 09:10
PROVIDERS: PCP Family Medicine; Visit Provider Internal Medicine Endocrinology, Diabetes & Metabolism
DX: Z78.0 Asymptomatic menopausal state (principal); M81.0 Age-related osteoporosis without current pathological fracture; M85.89 Other specified disorders of bone density and structure, multiple sites
CPT/HCPCS: 77080

== ENCOUNTER 2025-01-14 12:32 | Outpatient (CLI) | payer OTHER, SELFPAY ==
--- OUTSIDE RECORDS SUMMARY | 2025-01-14 12:39 | XMS_ITS | Data Portability ---
Author Organization [facility] Address [address], [address] [place] [address] Care Team Providers Care Powerhouse Laborer Name Role Phone VICKI TELLES Primary Care [...] Protopic 0.1 % topical ointment 2020 021 [facility], [address] [place] [address], [place], [address], 11:23:50 Patient TargetsNo targets recorded. Patient Instructions Encounter Date Encounter Id Patient Instructions Last Modified By Organization Details Last Modified Time 01/17/2021 [id number] Topical steroids used around the eye may cause thinning of the skin, cataracts and glaucoma. Use only for a short time. Not available 01/17/2021 11:22:16 Reason for Referral None Reported. Problems Name Problem SNOMED Code Status Onset Date Resolution Date Notes Provider Name and Address Organization Details Recorded Time Allergic contact dermatitis 277127180 Active 03/[address] Hilario- positive Balsam hermila, nickel, cobalt chloride, oleamidopr opyl dimethylam ine, propolis, benzalkoni um chloride, cetrimoniu m bromide. Tennille Celestin MD [address] [facility], [address], [place], [address] [facility] Celestin MD 1 10:08:56 Problem Notes None recorded. Medical Equipment None Reported. Allergies Allergen ID Allergen Name Allergen Category Reaction Reaction Severity Criticality Documentation Date Start Date Code Code System Note Provider Name and Address Organization Details Recorded Time 6612 Product containin g penicilli n and antibioti c (product) medicatio n Not available Not available Not available 09/21/2021 26360 05 SNOMED KemalPANCHITO Monroy MD 15:18:59 947 amoxicill in medicatio n Not available Not available Not available 04/16/2017 723 RxNorm [facility] Don MD 7 16:24:18 948 erythromy clara medicatio n Not available Not available Not available 04/17/2017 4053 RxNorm [facility] Don MD 7 11:57:59 949 sulfameth oxazole / trimethop rim medicatio n Not available Not available Not available 04/17/2017 04454 RxNorm [facility] Don MD 7 11:58:12 950 tetracycl ine medicatio n Not available Not available Not available 04/17/2017 33357 RxNorm [facility] Don MD 7 11:58:19 Medications Name Sig [...] t Available mupirocin 2 % topical ointment JYALIN EXT AA TID active Not Available Not [...] COVID-19 While That Case Was Ill? No [email or web address] Information not available 01/17/2021 In The 14 Days Before Symptom Onset, Have You Had Close Contact With A Person Who Is Under Investigation For COVID-19 While That Person Was Ill? No [email or web address] Information not available 01/17/2021 Have You Been To An Area Known To Be High Risk For COVID-19? No [email or web address] Information not available 01/17/2021 Do You Or Have You Ever Used E-cigarettes Or Vape? Never Used Electronic Cigarettes [email or web address] Information not available 01/17/2021 Does Patient Have Any Fever, Cough, Sore Throat Or New Shortness Of Breath? No [email or web address] Information not available 01/17/2021 What Was The Date Of Your Most Recent Tobacco Screening? 01/17/2021 [email or web address] Information not available 01/17/2021 Do You Or Have You Ever Used Smokeless Tobacco? Never Used Smokeless Tobacco [email or web address] Information not available 01/17/2021 How Much Tobacco Do You Smoke? 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 Melanocyti c nevus of trunk 804826636 D22.5 Melanocyti c nevus of face 324966900 D22.30 Excoriation of skin 8764 04516 T14.8 [id number] Tennille Celestin MD Main Office [address] [place] [address] 02/03/2018 14:31:56 02/03/2018 15:20:04 Lentigo 659535209 L81.4 Post-infla mmatory hyperpigmentation 752087616 L81.0 [id number] Tennille Celestin MD Main Office [address] [place] [address] 01/17/2021 10:59:36 01/17/2021 11:48:35 Allergic contact dermatitis 534417481 L23.9 Hemangioma 945126824 D18 .00 Melanocyti c nevus of upper limb 447567882 D22.62 Melanocyti c nevus of skin of thigh 098285131 D22.72 [id number] Tennille Celestin MD Main Office [address] [place] [address] 09/21/2021 15:06:29 09/21/2021 15:36:37 Telangiectasia of skin of face 153293622 I78.1 Milia 127067952 L72.0 Apocrine h idrocystoma of eyelid 784949211 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.0 [id number] Tennille Celestin MD Main Office [address] [place] [address] 03/05/2023 11:05:47 03/05/2023 11:45:51 Scar 365422246 L90.5 Melanocyti c nevus of trunk 246688940 D22.5 Hemangioma of skin 14786 006 D18.01 Benign kenyon plasm of skin of upper limb 31394570 D23.61 [id number] Tennille Celestin MD Main Office [address] [facility] [address] [place] [address] 06/23/2024 10:31:59 06/23/2024 11:37:57 Neoplasm of uncertain behavior of skin 83796117 D48.5 Hemangioma of skin 06103 006 D18.01 Health Concerns Section Related Observation LastModified by Organization Detai ls LastModified Time None Recorded Concern Status LastModified by Organization Details LastModified Time None Recorded Advance Directives Directive None Recorded Payers Encounter Date Sequence Insurance Name Policy Number Policy Keane Covered Member ID Keane Member ID Guarantor Name 02/03/2018 1 [employer] (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) [id number] Catarina L Modesitt [id number] Catarina Modesitt 01/17/2021 1 [employer] - DOS PRIOR TO 21 - [facility] [employer]ITS [employer]AN Catarina Modesitt [id number] Catarina Modesitt 09/21/2021 1 [employer] - DOS PRIOR TO 21 - [facility] [employer] [id number] Catarina Modesitt [id number] SOI Catarina Modesitt 03/05/2023 1 [employer] - [facility] [employer] Catarina Modesitt [id number] SOI Catarina Modesitt 06/23/2024 1 *SELF PAY* Florian berrye Modesitt Notes Date Note Type Note Provider Name and Address Organization Details Recorded Time 02/03/2018 text/html spots on facex 4 monthsraised bumpssoftthe one on the L cheek is a lot smaller than before brown spots on the forehead Tennille Celestin MD [address] [facility], [address], [place], [address], [facility] - Tennille Celestin MD 02/09/2018 [...] want to heal. Tennille Celestin MD [address] [facility], [address], [place], [address], [facility] Celestin MD 01/22/2021 20:59:13 09/21/2021 text/html [...] the tear duct Tennille Celestin MD [address] [facility], [address], [place], [address], [facility] Celestin MD 09/21/2021 23:08:47 03/05/2023 text/html [...] want to heal. Tennille Celestin MD [address] [facility], [address], [place], [address], [facility] Presley Celestin MD 03/10/2023 22:26:53 06/23/2024 text/html Full body skin c heck Spot corner R eyex 1 weekgetting betterburns when patient puts eye cream on area, small bumpuses eye cream for areashe is concerned as a friend had a skin cancer in this location no other bleeding spots, changing moles, or sores that don't want to heal. Tennille Celestin MD [address] [facility], [address], [place], [address], [facility] Ceelstin MD 06/23/2024 22:14:57 OBGyn Episode No OBEpisode recorded.
--- OUTSIDE RECORDS SUMMARY | 2025-01-14 12:40 | XMS_ITS | Referral Summary ---
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 Gender Identity Female 02/28/2021 6:37 AM CDT Sexual Orientation Straight 02/28/2021 6: 37 AM CDT Last Filed Vital Signs Vital Sign Reading Time Taken Comments Blood Pressure - - Pulse - - Temperature 36.4 C (97.5 F) 03/08/2021 10:35 AM CDT Respiratory Rate - - Oxygen Saturation - - Inhaled Oxygen Concentration - - Weight 54.9 kg (121 lb) 10/26/2019 9:52 AM 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
--- OUTSIDE RECORDS SUMMARY | 2025-01-14 12:40 | XMS_ITS | Data Portability ---
Author Organization [place] - [facility] Nextt, Main Office Address [address] [place] [address] Assessment No assessment recorded. Plan of Treatment Reminders Order Date Submit Date Provider Last Modified By Organization Details Last Modified Time Details Appointments None recorded. Lab CMP, serum or plasma 2022 023 [facility], [place], [address], 3 13:01:43 vitamin D, 25-hydroxy , total, serum 2022 023 [facility], [place], [address], 3 13:01:46 phosphorus , serum or plasma 2022 023 [facility], [place], [address], 3 13:01:43 TSH + free T4, serum 2022 023 [facility], [place], [address], 3 13:01:46 cortisol, am, serum 2022 023 [facility], [place], [address], 3 13:01:45 dexamethas one, serum 2022 023 [facility], [address], [place], [address], 3 13:01:44 PTH (parathyro id hormone), intact + calcium, serum or plasma 2022 023 [facility], [address], [place], [address], 3 13:01:42 Referral endocrinol ogy referral 2022 023 [facility], [address],, [facility], [place], [address], 3 13:00:55 Procedures None recorded. Surgeries None recorded. Imaging None recorded. Medication Orders dexamethas one 1 mg tablet 2022 023 [id number], [address] [facility], [place], [place], [id number], 3 12:52:12 Patient TargetsNo targets recorded. Patient [...] Care in Diabe vazquez(A DA). Not Available [facility] [address] [address] [place], [address], 03/16/2022 17:46:35 03/15/20 22 03/16/2022 VITAM IN [...] /MS is recom te d: order code 72274 (jermaine ents >2yrs ). See Note 1 Note 1 For addit ional infor emily zapata refer to http: //adriel Ramos stDia gnost ics.c om/fa q/FAQ 199 (This link is being provi ded for infor mirian may/ darlin gamez purpo ses only. ) Not Available [facility] [address], [place], [address], 03/16/2022 17:46:34 03/15/20 22 03/16/2022 INSUL IN [...] (dete haley, gluli sine) . Not Available [facility] [address] [address] [place], [address], 03/16/2022 17:46:32 03/15/20 22 03/16/2022 COMPR EHENS DELFINO METAB OLIC PANEL glucose 94 mg/dL 65-99 normal Fasti ng refer ence inter dionne Not Available [facility] [address] [place], [address], 03/16/2022 17:46:31 03/15/20 22 03/16/2022 COMPR EHENS DELFINO METAB OLIC PANEL urea nitrogen (BUN) 14 mg/dL 7-25 normal Not Available [facility] [address], [address], 03/16/2022 17:46:31 03/15/20 22 03/16/2022 COMPR EHENS DELFINO METAB OLIC PANEL creatinine 0.49 mg/dL 0.50-1 .05 low For patie nts >49 years of age, the refer ence limit for Creat inine is appro ximat mirna 13% highe r for peopl e ident ified as Afric an-Am shruthi n. Not Available [facility] [address], [address], 03/16/2022 17:46:31 03/15/20 22 03/16/2022 COMPR EHENS DELFINO METAB OLIC PANEL eGFR non-afr. chinese 107 mL/mi n/1.7 3m2 > or = 60 normal Not Available [facility] [address], [address], 03/16/2022 17:46:31 03/15/20 22 03/16/2022 COMPR EHENS DELFINO METAB OLIC PANEL eGFR 124 mL/mi n/1.7 3m2 > or = 60 normal Not Available [address], [address], 03/16/2022 17:46:31 03/15/20 22 03/16/2022 COMPR EHENS DELFINO METAB OLIC PANEL BUN/creatini ne ratio 29 (calc ) 6-22 high Not Available [address], [address], 03/16/2022 17:46:31 03/15/20 22 03/16/2022 COMPR EHENS DELFINO METAB OLIC PANEL sodium 139 mmol/ L 135-14 6 normal Not Available [address], [address], 03/16/2022 17:46:31 03/15/20 22 03/16/2022 COMPR EHENS DELFINO METAB OLIC PANEL potassium 4.5 mmol/ L 3.5-5. 3 normal Not Available [address], [address], 03/16/2022 17:46:31 03/15/20 22 03/16/2022 COMPR EHENS DELFINO METAB OLIC PANEL chloride 103 mmol/ L 98-110 normal Not Available [address], [address], 03/16/2022 17:46:31 03/15/20 22 03/16/2022 COMPR EHENS DELFINO METAB OLIC PANEL carbon dioxide 28 mmol/ L 20-32 normal Not Available [address], [address], 03/16/2022 17:46:31 03/15/20 22 03/16/2022 COMPR EHENS DELFINO METAB OLIC PANEL calcium 9.5 mg/dL 8.6-10 .4 normal Not Available [address], [address], 03/16/2022 17:46:31 03/15/20 22 03/16/2022 COMPR EHENS DELFINO METAB OLIC PANEL protein, total 6.8 g/dL 6.1-8. 1 normal Not Available [address], [address], 03/16/2022 17:46:31 03/15/20 22 03/16/2022 COMPR EHENS DELFINO METAB OLIC PANEL albumin 4.6 g/dL 3.6-5. 1 normal Not Available [address], [address], 03/16/2022 17:46:31 03/15/20 22 03/16/2022 COMPR EHENS DELFINO METAB OLIC PANEL globulin 2.2 g/dL_ (calc ) 1.9-3. 7 normal Not Available [address], [address], 03/16/2022 17:46:31 03/15/20 22 03/16/2022 COMPR EHENS DELFINO METAB OLIC PANEL albumin/glob ulin ratio 2.1 (calc ) 1.0-2. 5 normal Not Available [address], [address], 03/16/2022 17:46:31 03/15/20 22 03/16/2022 COMPR EHENS DELFINO METAB OLIC PANEL bilirubin, total 0.5 mg/dL 0.2-1. 2 normal Not Available [address], [address], 03/16/2022 17:46:31 03/15/20 22 03/16/2022 COMPR EHENS DELFINO METAB OLIC PANEL alkaline phosphatase 82 U/L 37-153 normal Not Available [address] [address] [place], [address], 03/16/2022 17:46:31 03/15/20 22 03/16/2022 COMPR EHENS DELFINO METAB OLIC PANEL AST 23 U/L 10-35 normal Not Available [address], [address], 03/16/2022 17:46:31 03/15/20 22 03/16/2022 COMPR EHENS DELFINO METAB OLIC PANEL ALT 19 U/L 6-29 normal Not Available [address], [address], 03/16/2022 17:46:31 03/15/20 22 03/16/2022 PHOSP HATE ( PHOSP HORUS ) phosphate ( phosphorus) 4.2 mg/dL 2.5-4. 5 normal Not Available [address], [address], 03/16/2022 17:46:29 03/15/20 22 03/16/2022 LIPID PANEL , STAND COLE cholesterol, total 228 mg/dL <200 high Not Available [address], [address], 03/16/2022 17:46:28 03/15/20 22 03/16/2022 LIPID PANEL , STAND COLE HDL cholesterol 72 mg/dL > or = 50 normal Not Available [address], [address], 03/16/2022 17:46:28 03/15/20 22 03/16/2022 LIPID PANEL , STAND COLE triglyceride s 72 mg/dL <150 normal Not Available [address], [address], 03/16/2022 17:46:28 03/15/20 22 03/16/2022 LIPID PANEL [...] 310(1 9): 2061- 2068 (http ://ed ucati on.AdScale. com/f aq/FA Q164) Not Available [facility] [address] [place], [address], 03/16/2022 17:46:28 03/15/20 22 03/16/2022 LIPID PANEL , STAND COLE chol/HDLC ratio 3.2 (calc ) <5.0 normal Not Available [facility] [address] [place], [address], 03/16/2022 17:46:28 03/15/20 22 03/16/2022 LIPID PANEL , STAND COLE non HDL cholesterol 156 mg/dL _(shana c) <130 high For patie nts with diabe vazquez plus 1 major ASCVD risk facto r, treat ing to a non-H DL-C goal of <100 mg/dL (LDL- C of <70 mg/dL ) is consi dered a thera pekassi c optio n. Not Available [facility] [address] [place], [address], 03/16/2022 17:46:28 03/15/2003/16/2022 PTH, INTAC T AND [...] or Low Caron l High Not Available [facility] [address] [place], [address], 03/16/2022 17:46:26 03/15/20 22 03/16/2022 PTH, INTAC T AND CALCI UM calcium 9.5 mg/dL 8.6-10 .4 normal Not Available [facility] [address] [place], [address], 03/16/2022 17:46:26 10/11/20 22 10/12/2022 HEMOG LOBIN [...] Care in Diabe vazquez(A DA). Not Available [facility] [address] [place], [address], 10/12/2022 14:49:14 11/10/20 22 10/12/2022 VITAM IN [...] /MS is recom te d: order code 74789 (jermaine ents >2yrs ). See Note 1 Note 1 For addit ional infor emily zapata e refer to http: //[facility] yovani Francisia gnost ics.c om/fa q/FAQ 199 (This link is being provi ded for infor mirian may/ darlin gamez purpo ses only. ) Not Available [address] [address] [place], [address], 10/12/2022 14:49:13 10/11/20 22 10/12/2022 COMPR EHENS DELFINO METAB OLIC PANEL glucose 88 mg/dL 65-99 normal Fasti ng refer ence inter dionne Not Available [address] [address] [place], [address], 10/12/2022 14:49:13 10/11/20 22 10/12/2022 COMPR EHENS DELFINO METAB OLIC PANEL urea nitrogen (BUN) 19 mg/dL 7-25 normal Not Available [address], [address], 10/12/2022 14:49:13 10/11/20 22 10/12/2022 COMPR EHENS DELFINO METAB OLIC PANEL creatinine 0.59 mg/dL 0.50-1 .03 normal Not Available [address], [address], 10/12/2022 14:49:13 10/11/20 22 10/12/2022 COMPR EHENS [...] kdoqi /gfr% 5Fcal culat or Not Available [address], [address], 10/12/2022 14:49:13 10/11/20 22 10/12/2022 COMPR EHENS DELFINO METAB OLIC PANEL BUN/creatini ne ratio not applic able (calc ) 6-22 Not Available [address] [address] [place], [address], 10/12/2022 14:49:13 10/11/20 22 10/12/2022 COMPR EHENS DELFINO METAB OLIC PANEL sodium 138 mmol/ L 135-14 6 normal Not Available [address], [address], 10/12/2022 14:49:13 10/11/20 22 10/12/2022 COMPR EHENS DELFINO METAB OLIC PANEL potassium 4.2 mmol/ L 3.5-5. 3 normal Not Available [address] [address] [place], [address], 10/12/2022 14:49:13 10/11/20 22 10/12/2022 COMPR EHENS DELFINO METAB OLIC PANEL chloride 103 mmol/ L 98-110 normal Not Available [address] [address] [place], [address], 10/12/2022 14:49:13 10/11/20 22 10/12/2022 COMPR EHENS DELFINO METAB OLIC PANEL carbon dioxide 29 mmol/ L 20-32 normal Not Available [address], [address], 10/12/2022 14:49:13 10/11/20 22 10/12/2022 COMPR EHENS DELFINO METAB OLIC PANEL calcium 9.3 mg/dL 8.6-10 .4 normal Not Available [address], [address], 10/12/2022 14:49:13 10/11/20 22 10/12/2022 COMPR EHENS DELFINO METAB OLIC PANEL protein, total 6.2 g/dL 6.1-8. 1 normal Not Available [address], [address], 10/12/2022 14:49:13 10/11/20 22 10/12/2022 COMPR EHENS DELFINO METAB OLIC PANEL albumin 4.3 g/dL 3.6-5. 1 normal Not Available [address], [address], 10/12/2022 14:49:13 10/11/20 22 10/12/2022 COMPR EHENS DELFINO METAB OLIC PANEL globulin 1.9 g/dL_ (calc ) 1.9-3. 7 normal Not Available [address], [address], 10/12/2022 14:49:13 10/11/20 22 10/12/2022 COMPR EHENS DELFINO METAB OLIC PANEL albumin/glob ulin ratio 2.3 (calc ) 1.0-2. 5 normal Not Available [address], [address], 10/12/2022 14:49:13 10/11/20 22 10/12/2022 COMPR EHENS DELFINO METAB OLIC PANEL bilirubin, total 0.5 mg/dL 0.2-1. 2 normal Not Available [address] [address] [place], [address], 10/12/2022 14:49:13 10/11/20 22 10/12/2022 COMPR EHENS DELFINO METAB OLIC PANEL alkaline phosphatase 77 U/L 37-153 normal Not Available [facility] [employer] [address] [address] [place], [address], 10/12/2022 14:49:13 10/11/20 22 10/12/2022 COMPR EHENS DELFINO METAB OLIC PANEL AST 19 U/L 10-35 normal Not Available [address] [address] [place], [address], 10/12/2022 14:49:13 10/11/20 22 10/12/2022 COMPR EHENS DELFINO METAB OLIC PANEL ALT 17 U/L 6-29 normal Not Available [address] [address] [place], [address], 10/12/2022 14:49:13 10/11/20 22 10/12/2022 PHOSP HATE ( PHOSP HORUS ) phosphate ( phosphorus) 4.3 mg/dL 2.5-4. 5 normal Not Available [address] [address] [place], [address], 10/12/2022 14:49:12 10/11/20 22 10/12/2022 LIPID PANEL [...] 9): 2061- 2068 (http ://ed ucati on.Sigrid juaresiAmplify. com/f aq/FA Q164) Not Available [address] [address] [place], [address], 10/12/2022 14:49:12 10/11/20 22 10/12/2022 LIPID PANEL , STAND COLE cholesterol, total 219 mg/dL <200 high Not Available [address] [address] [place], [address], 10/12/2022 14:49:12 10/11/20 22 10/12/2022 LIPID PANEL , STAND COLE HDL cholesterol 62 mg/dL > or = 50 normal Not Available [address], [address], 10/12/2022 14:49:12 10/11/20 22 10/12/2022 LIPID PANEL , STAND COLE triglyceride s 92 mg/dL <150 normal Not Available [address], [address], 10/12/2022 14:49:12 10/11/20 22 10/12/2022 LIPID PANEL , STAND COLE chol/HDLC ratio 3.5 (calc ) <5.0 normal Not Available [address] [address] [place], [address], 10/12/2022 14:49:12 10/11/20 22 10/12/2022 LIPID PANEL , STAND COLE non HDL cholesterol 157 mg/dL _(shana c) <130 high For patie nts with diabe vazquez plus 1 major ASCVD risk facto r, treat ing to a non-H DL-C goal of <100 mg/dL (LDL- C of <70 mg/dL ) is consi dered a noemía perebekahi c optio n. Not Available [address] [address] [place], [address], 10/12/2022 14:49:12 10/11/20 22 10/12/2022 PTH, INTAC [...] or Low Caron l High Not Available [facility] [id number] [place], [place] [address], [address], 10/12/2022 14:49:11 10/11/20 22 10/12/2022 PTH, INTAC T AND CALCI UM calcium 9.3 mg/dL 8.6-10 .4 normal Not Available [facility] [address] [place], [place] [address], [address], 10/12/2022 14:49:11 03/07/20 23 03/08/2023 PTH, INTAC [...] or Low Caron l High Not Available [facility] [address] [place], [address], 03/08/2023 04:32:48 03/07/20 23 03/08/2023 PTH, INTAC T AND CALCI UM calcium 9.7 mg/dL 8.6-10 .4 normal Not Available [address] [address] [place], [address], 03/08/2023 04:32:48 03/07/20 23 03/08/2023 LIPID PANEL , STAND COLE cholesterol, total 259 mg/dL <200 high Not Available [facility] [address] [address] [place], [address], 03/08/2023 04:32:49 03/07/20 23 03/08/2023 LIPID PANEL , STAND COLE HDL cholesterol 81 mg/dL > or = 50 normal Not Available [address] [address] [place], [address], 03/08/2023 04:32:49 03/07/20 23 03/08/2023 LIPID PANEL , STAND COLE triglyceride s 116 mg/dL <150 normal Not Available [facility] [address] [address] [place], [address], 03/08/2023 04:32:49 03/07/20 23 03/08/2023 LIPID PANEL [...] 2061- 2068 (http ://ed ucati on.Qu Vitor Ivaldis. com/f aq/FA Q164) Not Available [facility] [address] [address] [place], [address], 03/08/2023 04:32:49 03/07/20 23 03/08/2023 LIPID PANEL , STAND COLE chol/HDLC ratio 3.2 (calc ) <5.0 normal Not Available [address] [place], [address], 03/08/2023 04:32:49 03/07/20 23 03/08/2023 LIPID PANEL , STAND COLE non HDL cholesterol 178 mg/dL _(shana c) <130 high For patie nts with diabe vazquez plus 1 major ASCVD risk facto r, treat ing to a non-H DL-C goal of <100 mg/dL (LDL- C of <70 mg/dL ) is consi kym guajardo optio n. Not Available [address] [address] [place], [address], 03/08/2023 04:32:49 03/07/2003/08/2023 PHOSP HATE ( PHOSP HORUS ) phosphate ( phosphorus) 3.5 mg/dL 2.5-4. 5 normal Not Available [address] [address] [place], [address], 03/08/2023 04:32:50 03/07/20 23 03/08/2023 COMPR EHENS DELFINO METAB OLIC PANEL glucose 89 mg/dL 65-99 normal Fasti ng refer ence inter dionne Not Available [address], [address], 03/08/2023 04:32:50 03/07/20 23 03/08/2023 COMPR EHENS DELFINO METAB OLIC PANEL urea nitrogen (BUN) 14 mg/dL 7-25 normal Not Available [address], [address], 03/08/2023 04:32:50 03/07/20 23 03/08/2023 COMPR EHENS DELFINO METAB OLIC PANEL creatinine 0.58 mg/dL 0.50-1 .05 normal Not Available [facility] [address] [address], [place], [address], 03/08/2023 04:32:50 03/07/20 23 03/08/2023 COMPR EHENS [...] kdoqi /gfr% 5Fcal culat or Not Available [address], [address], 03/08/2023 04:32:50 03/07/20 23 03/08/2023 COMPR EHENS DELFINO METAB OLIC PANEL BUN/creatini ne ratio NOT APPLIC ABLE (calc ) 6-22 Not Available [address], [address], 03/08/2023 04:32:50 03/07/20 23 03/08/2023 COMPR EHENS DELFINO METAB OLIC PANEL sodium 139 mmol/ L 135-14 6 normal Not Available [address], [address], 03/08/2023 04:32:50 03/07/20 23 03/08/2023 COMPR EHENS DELFINO METAB OLIC PANEL potassium 4.1 mmol/ L 3.5-5. 3 normal Not Available [address], [address], 03/08/2023 04:32:50 03/07/20 23 03/08/2023 COMPR EHENS DELFINO METAB OLIC PANEL chloride 103 mmol/ L 98-110 normal Not Available [address], [address], 03/08/2023 04:32:50 03/07/20 23 03/08/2023 COMPR EHENS DELFINO METAB OLIC PANEL carbon dioxide 26 mmol/ L 20-32 normal Not Available [address], [address], 03/08/2023 04:32:50 03/07/20 23 03/08/2023 COMPR EHENS DELFINO METAB OLIC PANEL calcium 9.7 mg/dL 8.6-10 .4 normal Not Available [address], [address], 03/08/2023 04:32:50 03/07/20 23 03/08/2023 COMPR EHENS DELFINO METAB OLIC PANEL protein, total 6.8 g/dL 6.1-8. 1 normal Not Available [address], [address], 03/08/2023 04:32:50 03/07/20 23 03/08/2023 COMPR EHENS DELFINO METAB OLIC PANEL albumin 4.5 g/dL 3.6-5. 1 normal Not Available [address], [address], 03/08/2023 04:32:50 03/07/20 23 03/08/2023 COMPR EHENS DELFINO METAB OLIC PANEL globulin 2.3 g/dL_ (calc ) 1.9-3. 7 normal Not Available [address], [address], 03/08/2023 04:32:50 03/07/20 23 03/08/2023 COMPR EHENS DELFINO METAB OLIC PANEL albumin/glob ulin ratio 2.0 (calc ) 1.0-2. 5 normal Not Available [address], [address], 03/08/2023 04:32:50 03/07/20 23 03/08/2023 COMPR EHENS DELFINO METAB OLIC PANEL bilirubin, total 0.5 mg/dL 0.2-1. 2 normal Not Available [address] [address] [place], [address], 03/08/2023 04:32:50 03/07/20 23 03/08/2023 COMPR EHENS DELFINO METAB OLIC PANEL alkaline phosphatase 74 U/L 37-153 normal Not Available [address] [address] [place], [address], 03/08/2023 04:32:50 03/07/20 23 03/08/2023 COMPR EHENS DELFINO METAB OLIC PANEL AST 24 U/L 10-35 normal Not Available [address] [address] [place], [address], 03/08/2023 04:32:50 03/07/20 23 03/08/2023 COMPR EHENS DELFINO METAB OLIC PANEL ALT 18 U/L 6-29 normal Not Available [address] [address] [place], [address], 03/08/2023 04:32:50 03/07/20 23 03/08/2023 VITAM IN [...] /MS is recom te d: order code 41266 (jermaine ents >2yrs ). See Note 1 Note 1 For addit ional infor emily zapata refer to http: //adriel Christensen gnost ics.c om/fa q/FAQ 199 (This link is being provi ded for infor matshaina nal/ educa jesica l purpo ses only. ) Not Available [facility] [address] [place], [address], 03/08/2023 04:32:50 03/07/20 23 03/08/2023 HEMOG LOBIN [...] Care in Diabe vazquez(A DA). Not Available [facility] [address] [place], [address], 03/08/2023 04:32:51 04/02/20 23 04/10/2023 PTH, INTAC [...] or Low Caron l High Not Available [address], [address], 04/10/2023 13:01:42 04/02/20 23 04/10/2023 PTH, INTAC T AND CALCI UM calcium 9.6 mg/dL 8.6-10 .4 normal Not Available [address], [address], 04/10/2023 13:01:42 04/02/20 23 04/10/2023 PHOSP HATE ( PHOSP HORUS ) phosphate ( phosphorus) 3.6 mg/dL 2.5-4. 5 normal Not Available [address], [address], 04/10/2023 13:01:42 04/02/20 23 04/10/2023 COMPR EHENS DELFINO METAB OLIC PANEL glucose 89 mg/dL 65-99 normal Fasti ng refer ence inter dionne Not Available [address], [address], 04/10/2023 13:01:43 04/02/20 23 04/10/2023 COMPR EHENS DELFINO METAB OLIC PANEL urea nitrogen (BUN) 13 mg/dL 7-25 normal Not Available [address], [address], 04/10/2023 13:01:43 04/02/20 23 04/10/2023 COMPR EHENS DELFINO METAB OLIC PANEL creatinine 0.57 mg/dL 0.50-1 .05 normal Not Available [address], [address], 04/10/2023 13:01:43 04/02/20 23 04/10/2023 COMPR EHENS [...] kdoqi /gfr% 5Fcal culat or Not Available [address] [address] [place], [address], 04/10/2023 13:01:43 04/02/20 23 04/10/2023 COMPR EHENS DELFINO METAB OLIC PANEL BUN/creatini ne ratio NOT APPLIC ABLE (calc ) 6-22 Not Available [address], [address], 04/10/2023 13:01:43 04/02/20 23 04/10/2023 COMPR EHENS DELFINO METAB OLIC PANEL sodium 138 mmol/ L 135-14 6 normal Not Available [address] [address] [place], [address], 04/10/2023 13:01:43 04/02/20 23 04/10/2023 COMPR EHENS DELFINO METAB OLIC PANEL potassium 4.1 mmol/ L 3.5-5. 3 normal Not Available [address], [address], 04/10/2023 13:01:43 04/02/20 23 04/10/2023 COMPR EHENS DELFINO METAB OLIC PANEL chloride 102 mmol/ L 98-110 normal Not Available [facility] [address] [address] [place], [address], 04/10/2023 13:01:43 04/02/20 23 04/10/2023 COMPR EHENS DELFINO METAB OLIC PANEL carbon dioxide 27 mmol/ L 20-32 normal Not Available [address] [address] [place], [address], 04/10/2023 13:01:43 04/02/20 23 04/10/2023 COMPR EHENS DELFINO METAB OLIC PANEL calcium 9.6 mg/dL 8.6-10 .4 normal Not Available [address], [address], 04/10/2023 13:01:43 04/02/20 23 04/10/2023 COMPR EHENS DELFINO METAB OLIC PANEL protein, total 7.0 g/dL 6.1-8. 1 normal Not Available [address], [address], 04/10/2023 13:01:43 04/02/20 23 04/10/2023 COMPR EHENS DELFINO METAB OLIC PANEL albumin 4.7 g/dL 3.6-5. 1 normal Not Available [address], [address], 04/10/2023 13:01:43 04/02/20 23 04/10/2023 COMPR EHENS DELFINO METAB OLIC PANEL globulin 2.3 g/dL_ (calc ) 1.9-3. 7 normal Not Available [address], [address], 04/10/2023 13:01:43 04/02/20 23 04/10/2023 COMPR EHENS DELFINO METAB OLIC PANEL albumin/glob ulin ratio 2.0 (calc ) 1.0-2. 5 normal Not Available [address], [address], 04/10/2023 13:01:43 04/02/20 23 04/10/2023 COMPR EHENS DELFINO METAB OLIC PANEL bilirubin, total 0.7 mg/dL 0.2-1. 2 normal Not Available [address], [address], 04/10/2023 13:01:43 04/02/20 23 04/10/2023 COMPR EHENS DELFINO METAB OLIC PANEL alkaline phosphatase 72 U/L 37-153 normal Not Available [facility] [employer] [address] [address] [place], [address], 04/10/2023 13:01:43 04/02/20 23 04/10/2023 COMPR EHENS DELFINO METAB OLIC PANEL AST 24 U/L 10-35 normal Not Available [facility] [employer] [address] [address] [place], [address], 04/10/2023 13:01:43 04/02/20 23 04/10/2023 COMPR EHENS DELFINO METAB OLIC PANEL ALT 19 U/L 6-29 normal Not Available [address], [address], 04/10/2023 13:01:43 04/02/2004/10/2023 DEXAM ETHAS ONE dexamethason [...] for clini shana purpo ses. Not Available [facility] [employer] [address] [address] [place], [address], 04/10/2023 13:01:44 04/02/2004/10/2023 CORTI LAURA, A.M. cortisol, A.M. 9.3 mcg/d L normal Refer ence Range 8 a.m. (7-9 a.m.) Speci men: 4.0-2 2.0 Not Available [employer] [address] [address] [place], [address], 04/10/2023 13:01:45 04/02/20 23 04/10/2023 VITAM IN [...] /MS is recom te d: order code 06281 (jermaine ents >2yrs ). See Note 1 Note 1 For addit ional infor emily zapata e refer to http: //[facility] yovani Christ[facility] [employer].[facility] om/fa q/FAQ 199 (This link is being provi ded for infor mirian may/ educdavin gamez purpo ses only. ) Not Available [employer] [address] [address] [place], [address], 04/10/2023 13:01:46 04/02/20 23 04/10/2023 TSH+F REE T4 TSH 4.71 mIU/L 0.40-4 .50 high Not Available [employer] [address] [address] [place], [address], 04/10/2023 13:01:46 04/02/20 23 04/10/2023 TSH+F REE T4 T4, free 1.2 NG/dL 0.8-1. 8 normal Not Available [employer] [address], [address], 04/10/2023 13:01:46 04/25/20 23 05/01/2023 DEXAM ETHAS [...] for clini shana purpo ses. Not Available [employer] [facility] [address] [place], [address], 05/01/2023 13:50:36 04/25/2005/01/2023 CORTI LAURA, A.M. cortisol, A.M. 1.0 mcg/d L low Refer ence Range 8 a.m. (7-9 a.m.) Speci men: 4.0-2 2.0 Not Available [employer] [facility] [address] [address], [place], [address], 05/01/2023 13:50:37 03/04/20 23 09/24/2022 DEXA, axial skele ton No observ ation record ed. [email or web address] Not Available 2022 16:24:56 Result Notes None recorded. Problems Name Problem SNOMED Code Status Onset Date Resolution Date Notes Provider Name and Address Organization Details Recorded Time Postmenopausa l osteoporosis 051853995 Active 2021 Not Available [facility] 3 00:53:43 Enlarged uterus 025106386 Active Not Available [facility] 3 00:53:43 Low back pain 931154746 Active Not Available [facility] 3 00:53:43 Menometrorrha susan 078165330 Active Not Available [facility] 3 00:53:43 Dyslipidemia 450129852 Active 2021 Not Available [facility] 3 00:53:43 Impaired fasting glycemia 249203977 Active 2021 Not Available [facility] 3 00:53:43 Irregular periods 28469438 Active Not Available [facility] 3 00:53:43 Osteochondrit is dissecans 35801850 Active Not Available [facility] 3 00:53:43 Problem Notes None recorded. Procedures Surgical History Date Name Laterality Status Provider Name and Address Organization Details Recorded Time Ablation completed Not Available [facility] 00:46:51 Removal of ovary(s) completed Not Available [facility] 01/30/2023 00:46:51 Hand completed Not Available [facility] 12/2022 00:46:51 Imaging Results Imaging Date Name [...] medicatio n hives severe Not available 01/30/2023 07503 RxNorm Not Available [facility] 3 01:01:58 1272 sulfameth oxazole / trimethop rim medicatio n hives moderate Not available 01/30/2023 69754 RxNorm Not Available [facility] 3 01:01:58 1273 Product containin g penicilli n and antibioti c (product) medicatio n hives severe Not available 01/30/2023 88142 05 SNOMED Not Available [facility] 3 01:01:58 1274 erythromy clara medicatio n anaphylax is severe Not available 01/30/2023 4053 RxNorm Not Available [facility] 3 01:01:58 1275 amoxicill in medicatio n hives mild Not available 01/30/2023 723 RxNorm child oropeza Not Available [facility] 3 01:01:58 Medications Name Sig Start Date [...] Date Recorded Body mass index (BMI) Body mass index (BMI) Body height Body height Oxygen saturation Oxygen saturation in Arterial blood by Pulse oximetry Oxygen saturation Oxygen saturation in Arterial blood by Pulse oximetry Heart rate Heart rate Body temperature Body temperature Body weight Body weight Systolic blood pressure Diastolic blood pressure Systolic blood pressure Diastolic blood pressure Provider Name and Address Organization Details Last Updated DateTime 3 19.4 kg/m2 19.1 kg/m2 170.18 cm 170.18 cm 91 % 91 % 98 % 98 % 69 /min 61 /min 97.8 [degF] 97.6 [degF] 67017.4 5 g 82019.9 9 g 110 mm[Hg] 75 mm[Hg] 110 mm[Hg] 75 mm[Hg] Not Available [facility] 3 00:51:24 Date Recorded Body height Body mass index (BMI) Body weight Body temperature Heart rate Systolic blood pressure Diastolic blood pressure Provider Name and Address Organization Details Last Updated DateTime 3 170.18 cm 19 kg/m2 93925.8 3 g 97.8 [degF] 62 /min 130 mm[Hg] 84 mm[Hg] GREG Eaton [facility] [employer] 3 12:31:20 Date Recorded Body height Body mass index (BMI) Body weight Body temperature Heart rate Systolic blood pressure Diastolic blood pressure Provider Name and Address Organization Details Last Updated DateTime 3 170.18 cm 19.1 kg/m2 85534.9 9 g 97.4 [degF] 69 /min 124 mm[Hg] 80 mm[Hg] Karen Esparza MA [facility] [employer] [facility] 3 12:37:26 Social History Question Answer Notes LastModified by Organizat ion Details LastModified Time Tobacco Smoking Status Never Smoker EMELIA Moss, [facility] [employer] 08/22/2023 12:26:49 What Is Your Level Of Alcohol Consumption? Moderate [id number] Information not available 01/30/2023 What Is Your Level Of Caffeine Consumption? 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 [id number] Information not available 01/30/2023 Do You [...] SNOMED-CT Code Diagnosis ICD10 Code Diagnosis Note [id number] [facility] [address] [place] [address] 08/22/2021 00:00:00 08/22/2021 09:29:00 [id number] [facility] [address] [place] [address] 04/09/2022 00:00:00 04/09/2022 13:23:42 [id number] [facility] [address] [place] [address] 10/18/2022 00:00:00 10/18/2022 14:58:02 [id number] Evelin Bolden MD [facility] [address] [place] [address] 03/29/2023 12:02:13 03/29/2023 13:16:18 Postmenopausal osteoporosis 088507453 M81.0 Most recent bone density scan revealed [...] hypercorti solic state. Impaired f asting glycemia 215590933 R73.01 A1C 5.4%- glucose in range. Her [...] informatio n in the electronic health record, brandon perkins interpreti ng results and communicat ing results to the patient. RTC in 6 months. Patient was provided a handwritte n lab order which contains our fax number. If she chooses to go outside of the [facility] system to obtain labwork she was [...] in her case. She voiced understand ing. [id number] Evelin Bolden MD [facility] [address] [place] [address] 08/22/2023 12:26:03 08/22/2023 12:59:08 Postmenopausal osteoporosis [id number] M81.0 Most recent bone density scan revealed [...] Keane Member ID Guarantor Name 03/29/2023 1 Edgar - OPEN ACCESS [employer] [id number] OI Catarina L [employer] 08/22/2023 1 Edgar - OPEN ACCESS [employer] [id number] OI Catarina Yodit Gear[employer]jose Notes Date Note Type Note Provider Name and Address Organization Details Recorded Time 03/29/2023 text/html 58 yo female com es in for follow up in management of postmenopausal osteoporosis, impaired fasting glucose last seen in Oct at that time we continued calcium and vitamin D support along with natural insulin sensitizers. She went to see her paper coating machine operator on Saturday and not planning to [...] Evelin Bolden MD [address] [facility] [address], [place], [address], [facility] [employer] 03/29/2023 13:55:23 08/22/2023 text/html 58 yo female [...] citrus. Evelin Bolden MD [address], [place], [address], [employer] [facility] [employer] 08/22/2023 13:23:54 OBGyn Episode No OBEpisode recorded.
--- OUTSIDE RECORDS SUMMARY | 2025-01-14 12:40 | XMS_ITS | Clinical Summary ---
Author Organization [facility] Address [address] [place] [address] Care Team Providers Care Lock Maintenance Supervisor Name Role Phone Panda Myrick MD Primary Care Provider Allergies Active Allergy Reactions Criticality Noted Date Comments Amoxicillin Balsam [place] Unknown 03/08/2021 Allergy patch tested positive Benzalkonium Chloride Unknown 03/08/2021 Allergy patch tested positive Cetrimonium [place] Unknown 03/08/2021 Allergy patch tested positive [place] Chloride Unknown 03/08/2021 Allergy patch tested positive [...] on file Legal Sex Female 2:33 AM BROOMCORN SEEDER Gender Identity Female 02/28/2021 6:37 AM CDT [...] 54.9 kg (121 lb) 10/26/2019 9:52 AM BROOMCORN SEEDER Height 170.2 cm (5' 7 ) 10/26/2019 9:52 AM BROOMCORN SEEDER Body Mass Index 18.95 10/26/2019 9:52 AM BROOMCORN SEEDER Plan of Treatment Health Maintenance Due Date Last Done Comments Breast Cancer Screening-Mammogram 1965 Cervical Cancer Screening 1965 Colon Cancer Screening-Colonoscopy 1965 Depression Screening 1963 Hepatitis C Screening 1963 Regular Well Visit/Exam 18-64 1981 Zoster Vaccine (1 of 2) 2013 Influenza Vaccine (#1) 2024 DTaP/Tdap/Td Vaccine (2 - Td or Tdap) 10/20/2028 10/20/2018 Hepatitis B Screening Completed 11/21/2018 , 10/20/2018 Pneumococcal vaccine <65 Aged Out No longer eligible based on patient's age to complete this topic Insurance [employer] [facility] [id number] [facility] Care Teams Lock Maintenance Supervisor Relationship Specialty Start Date End Date Panda Myrick MD [address] [facility] [address] [place] [address] PCP - General Family Medicine 04/16/19
[2025-01-14 13:32] LABS: Hematocrit 41.8 % (37.0-47.0); Hemoglobin 14.2 g/dL (12.0-15.0); Mean Corpuscular Hemoglobin 31.1 pg (26-34); Mean Corpuscular Volume 91.7 fl (80-100); Mean Platelet Volume 9.6 fl (7.4-10.4); Platelet Count Result 226 k/mm3 (150-375); Red Blood Count 4.56 M/mm3 (4.2-5.4); Red Cell Distribution Width 12.2 % (11.5-14.5); White Blood Count 5.2 K/mm3 (4.5-10.0)
== END 2025-01-14 12:33 | disposition home or self-care (01) ==
LOC: ANHSURGERY 12:36
PROVIDERS: PCP Family Medicine; Visit Provider Obstetrics & Gynecology
DX: Z01.812 Encounter for preprocedural laboratory examination (principal); N85.2 Hypertrophy of uterus
CPT/HCPCS: 36415; 85027; 86850; 86900; 86901

== ENCOUNTER 2025-01-19 06:40 | Outpatient (CLI) | payer OTHER, SELFPAY ==
--- OUTSIDE RECORDS SUMMARY | 2025-01-19 06:44 | XMS_ITS | Referral Summary ---
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 TESTER Gender Identity Female 02/28/2021 6:37 AM CDT Sexual Orientation Straight 02/28/2021 6: 37 AM CDT Last Filed Vital Signs Vital Sign Reading Time Taken Comments Blood Pressure - - Pulse - - Temperature 36.4 C (97.5 F) 03/08/2021 10:35 AM CDT Respiratory Rate - - Oxygen Saturation - - Inhaled Oxygen Concentration - - Weight 54.9 kg (121 lb) 10/26/2019 9:52 AM SEWING MACHINE TESTER Height 170.2 cm (5' 7 ) 10/26/2019 9:52 AM SEWING MACHINE TESTER Body Mass Index 18.95 10/26/2019 9:52 AM SEWING MACHINE TESTER Plan of Treatment Not on file Insurance [facility] [id number] [facility] [id number] [facility] Care Teams Forensic Science Technician Relationship Specialty Start Date End Date Panda Myrick MD [address] [place] [address] PCP - General Family Medicine 04/16/19
--- OUTSIDE RECORDS SUMMARY | 2025-01-19 06:44 | XMS_ITS | Clinical Summary ---
Author Organization [facility] Address [address] [place] [address] Care Team Providers Care Scrap Materials Buyer Name Role Phone Panda Myrick MD Primary Care Provider Allergies Active Allergy Reactions Criticality Noted Date Comments Amoxicillin Balsam [place] Unknown 03/08/2021 Allergy patch tested positive Benzalkonium Chloride Unknown 03/08/2021 Allergy patch tested positive Cetrimonium [place] Unknown 03/08/2021 Allergy patch tested positive [place] Chloride Unknown 03/08/2021 Allergy patch tested positive [...] on file Legal Sex Female 2:33 AM SWATCH CHECKER Gender Identity Female 02/28/2021 6:37 AM CDT [...] 54.9 kg (121 lb) 10/26/2019 9:52 AM SWATCH CHECKER Height 170.2 cm (5' 7 ) 10/26/2019 9:52 AM SWATCH CHECKER Body Mass Index 18.95 10/26/2019 9:52 AM SWATCH CHECKER Plan of Treatment Health Maintenance Due Date [...] patient's age to complete this topic Insurance H[facility] [id number] [facility] Care Teams Scrap Materials Buyer Relationship Specialty Start Date End Date Panda Myrick MD [address] [facility] [address] [place] [address] PCP - General Family Medicine 04/16/19
[2025-01-19 07:25] LABS: Alanine Aminotransferase 39 U/L (6-35); Albumin Level 4.5 g/dL (3.5-5.1); Alkaline Phosphatase 81 U/L (38-126); Anion Gap 8 mmol/L (4-12); Aspartate Amino Transferase 39 U/L (14-36); Bilirubin,Total 0.7 mg/dL (0.2-1.3); Blood Urea Nitrogen 15 mg/dL (7-17); Calcium 9.2 mg/dL (8.4-10.2); Carbon Dioxide 28 mmol/L (22-30); Chloride 101 mmol/L (98-107); Estimated Glomerular Filt Rate > 60; Glucose 95 mg/dL (65-110); Potassium 4.3 mmol/L (3.4-5.0); Sodium 137 mmol/L (137-145)
[2025-01-19 07:36] LABS: Parathyroid Intact 24.6 pg/mL (14.5-75.2)
[2025-01-19 07:41] LABS: Vitamin D 25 Hydroxy 59.8 ng/mL
[2025-01-20 11:38] LABS: Protein, Total 6.4 g/dL (6.1-8.1)
[2025-01-20 19:04] LABS: Albumin 4.2 g/dL (3.8-4.8); Alpha 1 Globulin 0.3 g/dL (0.2-0.3); Alpha 2 Globulin 0.5 g/dL (0.5-0.9); Beta 1 Globulin 0.4 g/dL (0.4-0.6); Gamma Globulin 0.7 g/dL (0.8-1.7)
[2025-01-21 04:29] LABS: Creatinine, Random Urine 34 mg/dL (20-275); Total Prot/Creat ratio mg/mg NOTE (0.024-0.184); Total Protein/Creatinine Ratio NOTE mg/g creat (24-184)
[2025-01-21 15:23] LABS: Immunoglobulin A 151 mg/dL (70-320); TTG IGA AB <1.0 U/mL
== END 2025-01-19 06:41 | disposition home or self-care (01) ==
PROVIDERS: PCP Family Medicine; Visit Provider Internal Medicine Endocrinology, Diabetes & Metabolism
DX: R74.8 Abnormal levels of other serum enzymes (principal); R79.89 Other specified abnormal findings of blood chemistry; M81.0 Age-related osteoporosis without current pathological fracture
CPT/HCPCS: 36415; 80053; 82306; 82570; 82784; 83937; 83970; 84155; 84156; 84165; 84166; 84443; 86364

== ENCOUNTER 2025-01-20 08:05 | Outpatient (CLI) | payer OTHER, SELFPAY ==
--- NOTE | ~2025-01-20 | US_ITS ---
Limited Abdominal Sonogram: Real-time sonographic imaging of the right upper quadrant was performed. Clinical History: Abnormal findings of blood chemistry Findings: The liver appears normal with no evidence of mass lesion or bile duct dilatation. Main por anton vein demonstrates normal direction of flow. The gallbladder is well distended, and appears normal with no evidence of gallstone or wall thickening. The common bile duct measures 3 mm. The visualize d pancreas, aorta, and IVC are unremarkable. Impression: No significant abnormality seen. Reviewed, dictated and finalized at location M. CIL CUTTER MACHINE Impression: No significant abnormality seen.
== END 2025-01-20 08:06 | disposition home or self-care (01) ==
LOC: GOSHIMG 08:05
PROVIDERS: PCP Family Medicine; Visit Provider Internal Medicine Endocrinology, Diabetes & Metabolism
DX: M81.0 Age-related osteoporosis without current pathological fracture (principal); R79.89 Other specified abnormal findings of blood chemistry; R74.8 Abnormal levels of other serum enzymes
CPT/HCPCS: 76705

== ENCOUNTER 2025-01-21 00:36 | Day surgery (SDC) | payer OTHER, SELFPAY ==
[2024-10-23 15:18] VITALS: BMI 19.1
--- NOTE | 2024-10-23 16:01 | PC.NURSE ---
Report to the Outpatient Waiting Room, entrance under the green pavilion located off [facility], at time __714 on date 11/05/24 . Planned Procedure Time: __914 .? PLEASE NOTE!!!!:Time changes happen often and if your time is changed the preop area will call you the afternoon before. - You and your visitor will be asked to self-screen and do not enter if you have any COVID symptoms. Please call surgeon if you need to reschedule. - A mask is optional within the hospital at this time. Patients may have clear liquids (water, carbonated beverages, clear teas, apple juice) until 3 hours prior to surgery with a maximum of 20 ounces. STOP CLEAR LIQUIDS AT 0615AM. - No food from midnight until time of surgery and no smoking. This includes no chewing gum, candy or mints. - Take only the following medications with a SIP of water on the morning of surgery: NONE DO NOT STOP ANY OF YOUR OTHER PRESCRIPTION MEDICATIONS PRIOR TO SURGERY EXCEPT THE FOLLOWING Medications to discontinue per physician STOP MULTIIVITAMIN, ALGI ELLEN, AND PROBIOTIC ON 11/02/24 Date to take last dose___11/02/24 Please no make-up, nail vietnamese, hairspray, perfume, deodorant, or body powder the day of surgery.? No jewelry (including any body piercings) or valuables the day of surgery, leave them at home.? Please take a shower or bath the night before, or the morning of, surgery with an antibacterial soap.? Wear comfortable, loose fitting clothing.? - Jewelry must be removed prior to entering the operating room.? Rings and piercings that are not removed may be cut off. - The hospital will not accept responsibility for valuables.? - Please leave all valuables, including medications, at home the day of surgery. If you are going home after surgery, a licensed school bus driver must drive you home.? - NO public transportation without another adult if you receive anesthesia. - We recommend that an adult stay with you for 24 hours following discharge. - We also recommend that you do not drive, make important decision, drink alcoholic beverages, or take any drugs that were not prescribed by your health care provider for at least 24 hours after your discharge time. Follow any additional instructions given to you from your surgeon. Telephone instructions given to __ZAC and asked if any additional questions and then verbalized understanding. Patient advised to call surgeon office or pre surgery nurse liaison [phone] if any additional questions.
--- NOTE | 2024-11-27 15:39 | PC.NURSE ---
Report to the Outpatient Waiting Room, entrance under the green pavilion located off [facility], at time _0730_ on date _[id number]_. Planned Procedure Time: _0930_.? Time changes happen often and if your time is changed the preop area will call you the afternoon before. - You and your visitor will be asked to self-screen and do not enter if you have any COVID symptoms. Please call surgeon if you need to reschedule. - A mask is optional within the hospital at this time. Patients may have clear liquids (water, carbonated beverages, clear teas, apple juice) until 3 hours prior to surgery with a maximum of 20 ounces. - No food from midnight until time of surgery and no smoking. This includes no chewing gum, candy or mints. Take only the following medications with a SIP of water on the morning of surgery: None DO NOT STOP ANY OF YOUR OTHER PRESCRIPTION MEDICATIONS PRIOR TO SURGERY EXCEPT THE FOLLOWING Medications to discontinue per physician ____All vitamins and supplements Date to take last cufh____[phone]____ Please no make-up, nail irish, hairspray, perfume, deodorant, or body powder the day of surgery.? No jewelry (including any body piercings) or valuables the day of surgery, leave them at home.? Please take a shower or bath the night before, or the morning of, surgery with an antibacterial soap.? Wear comfortable, loose fitting clothing.? - Jewelry must be removed prior to entering the operating room.? Rings and piercings that are not removed may be cut off. - The hospital will not accept responsibility for valuables.? - Please leave all valuables, including medications, at home the day of surgery. If you are going home after surgery, a licensed delivery driver/supervisor must drive you home.? - NO public transportation without another adult if you receive anesthesia. - We recommend that an adult stay with you for 24 hours following discharge. - We also recommend that you do not drive, make important decision, drink alcoholic beverages, or take any drugs that were not prescribed by your health care provider for at least 24 hours after your discharge time. Follow any additional instructions given to you from your surgeon. Telephone instructions given to __Catarina__and asked if any additional questions and then verbalized understanding. Patient advised to call surgeon office or pre surgery nurse liaison [phone] if any additional questions.
--- NOTE | 2024-12-09 16:09 | P.HP_ITS ---
H&P: HPI History of Present Illness Date/Time: 12/09/24 16:09 59-year-old female presents with complaints of pelvic pain and abdominal bloating intermittently, as well as 1 episode of postmenopausal bleeding approximately 6 months ago. Ultrasound at that time revealed her normal endometrial thickness and ovarian cyst. Follow-up for ovarian cyst revealed persistent cyst but no other specific abnormalities. She has had a left cystadenoma surgically removed in the past. therefore she presents today for h ysterectomy and unilateral salpingo-ophorectomy. Chief Complaint: Pelvic pain Review of Systems Review of Systems: All systems reviewed & are unremarkable except as noted in HPI and below PMFSH Past Medical History Medical History CAD (coronary artery disease) Fracture of pelvis Anal skin tag Bright red blood per rectum Hyperlipidemia Lumbar spinal stenosis Screening mammogram, encounter for Acne Heart murmur GERD (gastroesophageal reflux disease) Rash Surgical History Surgical History S/P left oophorectomy (05/06/98) laparoscopic left oopherectomy / cystadenoma History of gynecological procedure (09/07/04) hscope EMB / Benign S/P tendon repair (10/22/08) finger tendon surgery S/P tendon repair (03/02/09) finger tendon surgery Hx of dilation and curettage (06/02/15) Hscope D&C/ Novasure Ablation Family History Family History Mother Heart disease Hypertension Embolism Sibling Alcohol abuse sister and brother Grandparent No problems noted. Other Breast cancer maternal aunt Social History Social History Smoking status: Never smoker Second hand tobacco smoke exposure: No Alcohol intake: never Drinks per week: 4 Alcohol use details: weekends Substance use: never Substance use type: does not use Do You Feel Safe in your Home?: Yes Lack of Transportation: No Lack of Food: Never True Current Housing: I Have Housing Concerned About Future Housing: No Difficulty Paying Gas/Electric Bills: No Difficulty Paying for Meds: No Currently Unemployed: No Education: Bachelor's Degree Difficulty w/ Childcare or Family Care: No Living arrangements: with family Additional living arrangements comments: spouse Occupation/Education: retired Additional occupation/education comments: [id number] Gender identity (if verbalized by the patient): Female Sexual Orientation (if Verbalized by the Patient): Straight or Heterosexual Spiritual care concerns: No Meds Home Medications and Allergies Home Medications ?Medication ?Instructions ?Recorded ?Confirmed ?Type pimecrolimus 1 % topical cream 1 applic topical BID 02/01/21 12/09/24 History (Elidel) multivitamin 1 tablet PO DAILY 01/28/23 12/09/24 History atorvastatin 40 mg tablet 40 mg PO DAILY #30 tabs 05/01/23 12/09/24 Rx ezetimibe 10 mg tablet 10 mg PO DAILY #30 tabs 05/01/23 12/09/24 Rx Lactobacillus 1 cap PO DAILY 08/30/23 12/09/24 History acidophilus-Bifidobac.animalis 2.5 billion cell capsule (Daily Probiotic) pantoprazole 20 mg tablet,delayed 20 mg PO DAILY #30 tabs 03/09/24 12/09/24 Rx release epinephrine 0.3 mg/0.3 mL 0.3 mg (0.3 mL) IM ONCE PRN 04/24/24 12/09/24 Rx injection, auto-injector (Auvi-Q) anaphylaxis #2 ea ALGI ELLEN 400 mg PO DAILY 10/23/24 12/09/24 History Allergies Allergy/AdvReac Type Severity Reaction Status Date / Time Sulfa (Sulfonamide Allergy Mild rash Verified 12/09/24 10:20 Antibiotics) sulfamethoxazole Allergy Mild rash Verified 12/09/24 10:20 erythromycin base Allergy Unknown throat Verified 12/09/24 10:20 swelling Penicillins Allergy Unknown rash Verified 12/09/24 10:20 sulfamethizole Allergy Unknown rash Verified 12/09/24 10:20 tetracycline Allergy Unknown Rash Verified 12/09/24 10:20 trimethoprim Allergy Unknown rash Verified 12/09/24 10:20 Exam Const: General: cooperative, healthy appearing and comfortable Resp: Effort & Inspection: normal respiratory effort Auscultation: clear to auscultation bilaterally Cardio: Rate: regular rate Rhythm: regular rhythm GI: Inspection: normal to inspection Auscultation: normal bowel sounds : External Female Exam: normal external appearance Speculum Exam - Vagina: normal appearance of the vagina Speculum Exam - Cervix: normal appearance of the cervix Bimanual exam- vagina & uterus: Uterine tenderness Bimanual Exam- Adnexa, other: Adnexal mass present ( right ovary 5cm tender) Assessment and Plan Assessment and plan (1) Pelvic pain: Code(s): R10.2 - Pelvic and perineal pain Status: Acute (2) Abdominal bloating: Code(s): R14.0 - Abdominal distension (gaseous) Status: Acute (3) Adnexal mass: Code(s): N94.89 - Other specified conditions associated with female genital organs and menstrual cycle Status: Acute Plan proceed with total laparoscopic hysterectomy with right salpingo oophorectomy, robotic assisted.
--- NOTE | 2024-12-10 06:50 | WPDHPUPDATE1 ---
History and Physical Update Update Date/Time: 12/10/24 06:50 History and Physical has been reviewed, including an updated exam of the patient. There are NO changes in the patient's condition. Risks, benefits, and alternatives have been discussed and questions answered. Patient agrees to proceed with procedure.
--- OUTSIDE RECORDS SUMMARY | 2024-12-17 04:00 | XMS_ITS | Data Portability ---
Author Organization [place] [facility], Main Office Address [address] [place] [address] Assessment No assessment recorded. Plan of Treatment Reminders Order Date Submit Date Provider Last Modified By Organization Details Last Modified Time Details Appointments None recorded. Lab CMP, serum or plasma 2022 023 [employer] [facility], [place], [address], 3 13:01:43 vitamin D, 25-hydroxy , total, serum 2022 023 [employer] [facility], [place], [address], 3 13:01:46 phosphorus , serum or plasma 2022 023 [employer] [facility], [place], [address], 3 13:01:43 TSH + free T4, serum 2022 023 [employer] [facility], [place], [address], 3 13:01:46 cortisol, am, serum 2022 023 [facility], [place], [address], 3 13:01:45 dexamethas one, serum 2022 023 [facility], [address], [place], [address], 3 13:01:44 PTH (parathyro id hormone), intact + calcium, serum or plasma 2022 023 [facility], [address], [place], [address], 3 13:01:42 Referral endocrinol ogy referral 2022 023 [facility], [address],, [facility], [place], [address], 3 13:00:55 Procedures None recorded. Surgeries None recorded. Imaging None recorded. Medication Orders dexamethas one 1 mg tablet 2022 023 [id number], [address] [facility], [place], [place], [id number], 3 12:52:12 Patient TargetsNo targets recorded. Patient InstructionsNo instructions recorded. Reason for Referral Endocrinology Referral for P ostmenopausal osteoporosis Referring Physician: Evelin Bolden, Endocrinology, Encounter Date: 08/22/2023 Results Created Date Observation Date Name Description Value Unit Range Abnormal Flag Note LastModifiedBy Organization Detail LastModifiedTime 03/15/20 22 03/16/2022 HEMOG LOBIN A1C hemoglobin A1C 5.4 %_of_ total _HGB <5.7 normal For the purpo se of rigoberto nadja for the prese nce of diabe vazquez: <5.7% Consi stent with the absen ce of diabe vazquez 5.7-6 .4% Consi stent with incre ased risk for diabe vazquez (pred iabet es) > or =6.5% Consi stent with diabe vazquez This assay resul t is consi stent with a decre ased risk of diabe vazquez. Curre ntly, no conse nsus exist s to conner use of hemog lobin A1c for diagn osis of diabe vazquez in child robby. Accor ubaldo to Ameri can Diabe vazquez Assoc iatio n (ADA) guide lines , hemog lobin A1c <7.0% repre sents optim al contr ol in non-p regna nt diabe tic patie nts. Diffe rent metri cs may apply to speci fic patie nt popul ation s. [facility] in Diabe vazquez(A DA). Not Available [facility] [address] [address] [place], [address], 03/16/2022 17:46:35 03/15/20 22 03/16/2022 VITAM IN D,25- OH,TO RENATA,I A vitamin D,25-oh,tota l,ia 52 NG/mL 30-100 normal Vitam in D Statu s 25-OH Vitam in D: Defic iency : <20 ng/mL Insuf ficie ncy: 20 - 29 ng/mL Optim al: > or = 30 ng/mL For 25-OH Vitam in D testi ng on patie nts on D2-turner pplem entat ion and patie nts for whom quant itati on of D2 and D3 fract ions is requi red, the Quest Assur eD(TM ) 25-OH VIT D, (D2,D 3), LC/MS /MS is recom te d: order code 35617 (jermaine ents >2yrs ). See Note 1 Note 1 For addit ional infor emily zapata refer to http: //adriel Ramos stDia gnost ics.c om/fa q/FAQ 199 (This link is being provi ded for infor mirian may/ darlin gamez purpo ses only. ) Not Available [facility] [address] [address], [place], [address], 03/16/2022 17:46:34 03/15/20 22 03/16/2022 INSUL IN insulin 3.8 uIU/m L normal Refer ence Range < or = 19.6 Risk: Optim al < or = 19.6 Moder ate NA High >19.6 Adult cardi ovasc ular event risk categ ory cut point s (opti mal, moder ate, high) are based on [facility] Diagn ostic s popul ation data from 11/20 11. This insul in assay shows stron g cross -reac tivit y for some insul in analo gs (lisp ro, aspar t, and glarg ine) and much lower cross -reac tivit y with other s (dete haley, gluli sine) . Not Available [facility] [address] [address] [place], [address], 03/16/2022 17:46:32 03/15/20 22 03/16/2022 COMPR EHENS DELFINO METAB OLIC PANEL glucose 94 mg/dL 65-99 normal Fasti ng refer ence inter dionne Not Available [facility] [address] [place], [address], 03/16/2022 17:46:31 03/15/20 22 03/16/2022 COMPR EHENS DELFINO METAB OLIC PANEL urea nitrogen (BUN) 14 mg/dL 7-25 normal Not Available [facility] [address], [address], 03/16/2022 17:46:31 03/15/20 22 03/16/2022 COMPR EHENS DELFINO METAB OLIC PANEL creatinine 0.49 mg/dL 0.50-1 .05 low For patie nts >49 years of age, the refer ence limit for Creat inine is appro ximat mirna 13% highe r for peopl e ident ified as Afric an-Am shruthi n. Not Available [facility] [address], [address], 03/16/2022 17:46:31 03/15/20 22 03/16/2022 COMPR EHENS DELFINO METAB OLIC PANEL eGFR non-afr. swedish 107 mL/mi n/1.7 3m2 > or = 60 normal Not Available [facility] - [place], [address], 03/16/2022 17:46:31 03/15/20 22 03/16/2022 COMPR EHENS DELFINO METAB OLIC PANEL eGFR 124 mL/mi n/1.7 3m2 > or = 60 normal Not Available [address], [address], 03/16/2022 17:46:31 03/15/20 22 03/16/2022 COMPR EHENS DELFINO METAB OLIC PANEL BUN/creatini ne ratio 29 (calc ) 6-22 high Not Available [address], [address], 03/16/2022 17:46:31 03/15/20 22 03/16/2022 COMPR EHENS DELFINO METAB OLIC PANEL sodium 139 mmol/ L 135-14 6 normal Not Available [address], [address], 03/16/2022 17:46:31 03/15/20 22 03/16/2022 COMPR EHENS DELFINO METAB OLIC PANEL potassium 4.5 mmol/ L 3.5-5. 3 normal Not Available [address], [address], 03/16/2022 17:46:31 03/15/20 22 03/16/2022 COMPR EHENS DELFINO METAB OLIC PANEL chloride 103 mmol/ L 98-110 normal Not Available [address], [address], 03/16/2022 17:46:31 03/15/20 22 03/16/2022 COMPR EHENS DELFINO METAB OLIC PANEL carbon dioxide 28 mmol/ L 20-32 normal Not Available [address], [address], 03/16/2022 17:46:31 03/15/20 22 03/16/2022 COMPR EHENS DELFINO METAB OLIC PANEL calcium 9.5 mg/dL 8.6-10 .4 normal Not Available [address], [address], 03/16/2022 17:46:31 03/15/20 22 03/16/2022 COMPR EHENS DELFINO METAB OLIC PANEL protein, total 6.8 g/dL 6.1-8. 1 normal Not Available [address], [address], 03/16/2022 17:46:31 03/15/20 22 03/16/2022 COMPR EHENS DELFINO METAB OLIC PANEL albumin 4.6 g/dL 3.6-5. 1 normal Not Available [address], [address], 03/16/2022 17:46:31 03/15/20 22 03/16/2022 COMPR EHENS DELFINO METAB OLIC PANEL globulin 2.2 g/dL_ (calc ) 1.9-3. 7 normal Not Available [address], [address], 03/16/2022 17:46:31 03/15/20 22 03/16/2022 COMPR EHENS DELFINO METAB OLIC PANEL albumin/glob ulin ratio 2.1 (calc ) 1.0-2. 5 normal Not Available [address], [address], 03/16/2022 17:46:31 03/15/20 22 03/16/2022 COMPR EHENS DELFINO METAB OLIC PANEL bilirubin, total 0.5 mg/dL 0.2-1. 2 normal Not Available [address], [address], 03/16/2022 17:46:31 03/15/20 22 03/16/2022 COMPR EHENS DELFINO METAB OLIC PANEL alkaline phosphatase 82 U/L 37-153 normal Not Available [address] [address] [place], [address], 03/16/2022 17:46:31 03/15/20 22 03/16/2022 COMPR EHENS DELFINO METAB OLIC PANEL AST 23 U/L 10-35 normal Not Available [address], [address], 03/16/2022 17:46:31 03/15/20 22 03/16/2022 COMPR EHENS DELFINO METAB OLIC PANEL ALT 19 U/L 6-29 normal Not Available [address], [address], 03/16/2022 17:46:31 03/15/20 22 03/16/2022 PHOSP HATE ( PHOSP HORUS ) phosphate ( phosphorus) 4.2 mg/dL 2.5-4. 5 normal Not Available [address], [address], 03/16/2022 17:46:29 03/15/20 22 03/16/2022 LIPID PANEL , STAND COLE cholesterol, total 228 mg/dL <200 high Not Available [address], [address], 03/16/2022 17:46:28 03/15/20 22 03/16/2022 LIPID PANEL , STAND COLE HDL cholesterol 72 mg/dL > or = 50 normal Not Available [address], [address], 03/16/2022 17:46:28 03/15/20 22 03/16/2022 LIPID PANEL , STAND COLE triglyceride s 72 mg/dL <150 normal Not Available [address], [address], 03/16/2022 17:46:28 03/15/20 22 03/16/2022 LIPID PANEL , STAND COLE LDL-choleste rol 140 mg/dL _(shana c) high Refer ence range : <100 Cristina able range <100 mg/dL for prima ry preve ntion ; <70 mg/dL for patie nts with CHD or diabe tic patie nts with > or = 2 CHD risk facto rs. LDL-C is now calcu lated using the Yuly n-Hop kins calcu latshaina n, which is a valid ated novel metho d provi ubaldo annemarie r accur acy than the Fried kendal equat ion in the estim ation of LDL-C . Yuly brock SS et al. SARAI. 2013; 310(1 9): 2061- 2068 (http ://ed ucati on.WishGenie. com/f aq/FA Q164) Not Available [facility] [address] [place], [address], 03/16/2022 17:46:28 03/15/20 22 03/16/2022 LIPID PANEL , STAND COLE chol/HDLC ratio 3.2 (calc ) <5.0 normal Not Available [facility] [address] [place], [address], 03/16/2022 17:46:28 03/15/20 22 03/16/2022 LIPID PANEL , STAND COLE non HDL cholesterol 156 mg/dL _(shana c) <130 high For patie nts with diabe vazquez plus 1 major ASCVD risk facto r, treat ing to a non-H DL-C goal of <100 mg/dL (LDL- C of <70 mg/dL ) is consi dered a thera pekassi c optio n. Not Available [facility] [address] [place], [address], 03/16/2022 17:46:28 03/15/2003/16/2022 PTH, INTAC T AND CALCI UM parathyroid hormone, intact 19 pg/mL 16-77 normal Inter preti ve Guide Intac t PTH Calci um ----- ----- ----- --- ----- ----- ----- -- Caron l Parat hyroi d Caron l Caron l Hypop yazmin yroid ism Low or Low Caron l Low Hyper parat hyroi dism Prima ry Caron l or High High Secon alisa High Caron l or Low Terti elvia High High Non-P yazmin yroid Hyper calce dimitri Low or Low Caron l High Not Available [facility] [address] [place], [address], 03/16/2022 17:46:26 03/15/20 22 03/16/2022 PTH, INTAC T AND CALCI UM calcium 9.5 mg/dL 8.6-10 .4 normal Not Available [facility] [address] [place], [address], 03/16/2022 17:46:26 10/11/20 22 10/12/2022 HEMOG LOBIN A1C hemoglobin A1C 5.4 %_of_ total _HGB <5.7 normal For the purpo se of scree nadja for the prese nce of diabe vazquez: <5.7% Consi stent with the absen ce of diabe vazquez 5.7-6 .4% Consi stent with incre ased risk for diabe vazquez (pred iabet es) > or =6.5% Consi stent with diabe vazquez This assay resul t is consi stent with a decre ased risk of diabe vazquez. Curre ntly, no conse nsus exist s to conner use of hemog lobin A1c for diagn osis of diabe vazquez in child robby. Accor ding to Ameri can Diabe vazquez Assoc iatio n (ADA) guide lines , hemog lobin A1c <7.0% repre sents optim al contr ol in non-p regna nt diabe tic patie nts. Diffe rent metri cs may apply to speci fic patie nt popul ation s. [facility] Medic al [facility] in Diabe vazquez(A DA). Not Available [facility] [address] [place], [address], 10/12/2022 14:49:14 11/10/20 22 10/12/2022 VITAM IN D,25- OH,TO RENATA,I A vitamin D,25-oh,tota l,ia 52 NG/mL 30-100 normal Vitam in D Statu s 25-OH Vitam in D: Defic iency : <20 ng/mL Insuf ficie ncy: 20 - 29 ng/mL Optim al: > or = 30 ng/mL For 25-OH Vitam in D testi ng on patie nts on D2-turner pplem entat ion and patie nts for whom quant itati on of D2 and D3 fract ions is requi red, the Quest Assur eD(TM ) 25-OH VIT D, (D2,D 3), LC/MS /MS is recom te d: order code [id number] (jermaine ents >2yrs ). See Note 1 Note 1 For addit ional infor emily zapata e refer to http: //[facility] yovani Francisia gnost ics.c om/fa q/FAQ 199 (This link is being provi ded for infor mirian may/ darlin gamez purpo ses only. ) Not Available [address] [address] [place], [address], 10/12/2022 14:49:13 10/11/20 22 10/12/2022 COMPR EHENS DELFINO METAB OLIC PANEL glucose 88 mg/dL 65-99 normal Fasti ng refer ence inter dionne Not Available [address] [address] [place], [address], 10/12/2022 14:49:13 10/11/20 22 10/12/2022 COMPR EHENS DELFINO METAB OLIC PANEL urea nitrogen (BUN) 19 mg/dL 7-25 normal Not Available [address], [address], 10/12/2022 14:49:13 10/11/20 22 10/12/2022 COMPR EHENS DELFINO METAB OLIC PANEL creatinine 0.59 mg/dL 0.50-1 .03 normal Not Available [address], [address], 10/12/2022 14:49:13 10/11/20 22 10/12/2022 COMPR EHENS DELFINO METAB OLIC PANEL eGFR 104 mL/mi n/1.7 3m2 > or = 60 normal The eGFR is based on the CKD-E PI 2020 equat ion. To calcu late the new eGFR from a previ ous Creat inine or Cysta tin C resul t, go to https ://barbara w.hesham galloway.o yessy/pr ofess ional s/ kdoqi /gfr% 5Fcal culat or Not Available [address], [address], 10/12/2022 14:49:13 10/11/20 22 10/12/2022 COMPR EHENS DELFINO METAB OLIC PANEL BUN/creatini ne ratio not applic able (calc ) 6-22 Not Available [address] [address] [place], [address], 10/12/2022 14:49:13 10/11/20 22 10/12/2022 COMPR EHENS DELFINO METAB OLIC PANEL sodium 138 mmol/ L 135-14 6 normal Not Available [address], [address], 10/12/2022 14:49:13 10/11/20 22 10/12/2022 COMPR EHENS DELFINO METAB OLIC PANEL potassium 4.2 mmol/ L 3.5-5. 3 normal Not Available [address] [address] [place], [address], 10/12/2022 14:49:13 10/11/20 22 10/12/2022 COMPR EHENS DELFINO METAB OLIC PANEL chloride 103 mmol/ L 98-110 normal Not Available [address] [address] [place], [address], 10/12/2022 14:49:13 10/11/20 22 10/12/2022 COMPR EHENS DELFINO METAB OLIC PANEL carbon dioxide 29 mmol/ L 20-32 normal Not Available [address], [address], 10/12/2022 14:49:13 10/11/20 22 10/12/2022 COMPR EHENS DELFINO METAB OLIC PANEL calcium 9.3 mg/dL 8.6-10 .4 normal Not Available [address], [address], 10/12/2022 14:49:13 10/11/20 22 10/12/2022 COMPR EHENS DELFINO METAB OLIC PANEL protein, total 6.2 g/dL 6.1-8. 1 normal Not Available [address], [address], 10/12/2022 14:49:13 10/11/20 22 10/12/2022 COMPR EHENS DELFINO METAB OLIC PANEL albumin 4.3 g/dL 3.6-5. 1 normal Not Available [address], [address], 10/12/2022 14:49:13 10/11/20 22 10/12/2022 COMPR EHENS DELFINO METAB OLIC PANEL globulin 1.9 g/dL_ (calc ) 1.9-3. 7 normal Not Available [address], [address], 10/12/2022 14:49:13 10/11/20 22 10/12/2022 COMPR EHENS DELFINO METAB OLIC PANEL albumin/glob ulin ratio 2.3 (calc ) 1.0-2. 5 normal Not Available [address], [address], 10/12/2022 14:49:13 10/11/20 22 10/12/2022 COMPR EHENS DELFINO METAB OLIC PANEL bilirubin, total 0.5 mg/dL 0.2-1. 2 normal Not Available [address] [address] [place], [address], 10/12/2022 14:49:13 10/11/20 22 10/12/2022 COMPR EHENS DELFINO METAB OLIC PANEL alkaline phosphatase 77 U/L 37-153 normal Not Available [facility] [employer] [address] [address] [place], [address], 10/12/2022 14:49:13 10/11/20 22 10/12/2022 COMPR EHENS DELFINO METAB OLIC PANEL AST 19 U/L 10-35 normal Not Available [address] [address] [place], [address], 10/12/2022 14:49:13 10/11/20 22 10/12/2022 COMPR EHENS DELFINO METAB OLIC PANEL ALT 17 U/L 6-29 normal Not Available [address] [address] [place], [address], 10/12/2022 14:49:13 10/11/20 22 10/12/2022 PHOSP HATE ( PHOSP HORUS ) phosphate ( phosphorus) 4.3 mg/dL 2.5-4. 5 normal Not Available [address] [address] [place], [address], 10/12/2022 14:49:12 10/11/20 22 10/12/2022 LIPID PANEL , STAND COLE LDL-choleste rol 137 mg/dL _(shana c) high Refer ence range : <100 Cristina able range <100 mg/dL for prima ry preve ntion ; <70 mg/dL for patie nts with CHD or diabe tic patie nts with > or = 2 CHD risk facto rs. LDL-C is now calcu lated using the Yuly n-Hop kins calcu zamzam n, which is a valid ated novel metho d staci sharpe r accur acy than the Fried kendal equat ion in the estim ation of LDL-C . Yuly brock SS et al. SARAI. 2013; 310(1 9): 2061- 2068 (http ://ed ucati on.Sigrid juaresXray Imatek. com/f aq/FA Q164) Not Available [address] [address] [place], [address], 10/12/2022 14:49:12 10/11/20 22 10/12/2022 LIPID PANEL , STAND COLE cholesterol, total 219 mg/dL <200 high Not Available [address] [address] [place], [address], 10/12/2022 14:49:12 10/11/20 22 10/12/2022 LIPID PANEL , STAND COLE HDL cholesterol 62 mg/dL > or = 50 normal Not Available [address], [address], 10/12/2022 14:49:12 10/11/20 22 10/12/2022 LIPID PANEL , STAND COLE triglyceride s 92 mg/dL <150 normal Not Available [address], [address], 10/12/2022 14:49:12 10/11/20 22 10/12/2022 LIPID PANEL , STAND COLE chol/HDLC ratio 3.5 (calc ) <5.0 normal Not Available [address] [address] [place], [address], 10/12/2022 14:49:12 10/11/20 22 10/12/2022 LIPID PANEL , STAND COLE non HDL cholesterol 157 mg/dL _(shana c) <130 high For patie nts with diabe vazquez plus 1 major ASCVD risk facto r, treat ing to a non-H DL-C goal of <100 mg/dL (LDL- C of <70 mg/dL ) is consi dered a noemía perebekahi c optio n. Not Available [address] [address] [place], [address], 10/12/2022 14:49:12 10/11/20 22 10/12/2022 PTH, INTAC T AND CALCI UM parathyroid hormone, intact 21 pg/mL 16-77 normal Inter preti ve Guide Intac t PTH Calci um ----- ----- ----- --- ----- ----- ----- -- Caron l Parat hyroi d Caron l Caron l Hypop yazmin yroid ism Low or Low Caron l Low Hyper parat hyroi dism Prima ry Caron l or High High Secon alisa High Caron l or Low Terti elvia High High Non-P yazmin yroid Hyper calce dimitri Low or Low Caron l High Not Available [facility] [address] [place], [place] [address], [address], 10/12/2022 14:49:11 10/11/20 22 10/12/2022 PTH, INTAC T AND CALCI UM calcium 9.3 mg/dL 8.6-10 .4 normal Not Available [facility] [address] [place], [place] [address], [address], 10/12/2022 14:49:11 03/07/20 23 03/08/2023 PTH, INTAC T AND CALCI UM parathyroid hormone, intact 20 pg/mL 16-77 normal Inter preti ve Guide Intac t PTH Calci um ----- ----- ----- --- ----- ----- ----- -- Caron l Parat hyroi d Caron l Caron l Hypop yazmin yroid ism Low or Low Caron l Low Hyper parat hyroi dism Prima ry Caron l or High High Secon alisa High Caron l or Low Terti elvia High High Non-P yazmin yroid Hyper calce dimitri Low or Low Caron l High Not Available [facility] [address] [place], [address], 03/08/2023 04:32:48 03/07/20 23 03/08/2023 PTH, INTAC T AND CALCI UM calcium 9.7 mg/dL 8.6-10 .4 normal Not Available [address] [address] [place], [address], 03/08/2023 04:32:48 03/07/20 23 03/08/2023 LIPID PANEL , STAND COLE cholesterol, total 259 mg/dL <200 high Not Available [facility] [address] [address] [place], [address], 03/08/2023 04:32:49 03/07/20 23 03/08/2023 LIPID PANEL , STAND COLE HDL cholesterol 81 mg/dL > or = 50 normal Not Available [address] [address] [place], [address], 03/08/2023 04:32:49 03/07/20 23 03/08/2023 LIPID PANEL , STAND COLE triglyceride s 116 mg/dL <150 normal Not Available [facility] [address] [address] [place], [address], 03/08/2023 04:32:49 03/07/20 23 03/08/2023 LIPID PANEL , STAND COLE LDL-choleste rol 155 mg/dL _(shana c) high Refer ence range : <100 Cristina able range <100 mg/dL for prima ry preve ntion ; <70 mg/dL for patie nts with CHD or diabe tic patie nts with > or = 2 CHD risk facto rs. LDL-C is now calcu lated using the Yuly n-Hop kins calcu latshaina n, which is a valid ated novel metho d provi ding annemarie r accur acy than the Fried kendal equat ion in the estim ation of LDL-C . Yuly brock SS et al. SARAI. 2013; 310(1 9): 2061- 2068 (http ://ed ucati on.[employer]. com/f aq/FA Q164) Not Available [facility] [address] [address] [place], [address], 03/08/2023 04:32:49 03/07/20 23 03/08/2023 LIPID PANEL , STAND COLE chol/HDLC ratio 3.2 (calc ) <5.0 normal Not Available [address] [place], [address], 03/08/2023 04:32:49 03/07/20 23 03/08/2023 LIPID PANEL , STAND COLE non HDL cholesterol 178 mg/dL _(shana c) <130 high For patie nts with diabe vazquez plus 1 major ASCVD risk facto r, treat ing to a non-H DL-C goal of <100 mg/dL (LDL- C of <70 mg/dL ) is consi kym guajardo optio n. Not Available [address] [address] [place], [address], 03/08/2023 04:32:49 03/07/2003/08/2023 PHOSP HATE ( PHOSP HORUS ) phosphate ( phosphorus) 3.5 mg/dL 2.5-4. 5 normal Not Available [address] [address] [place], [address], 03/08/2023 04:32:50 03/07/20 23 03/08/2023 COMPR EHENS DELFINO METAB OLIC PANEL glucose 89 mg/dL 65-99 normal Fasti ng refer ence inter dionne Not Available [address], [address], 03/08/2023 04:32:50 03/07/20 23 03/08/2023 COMPR EHENS DELFINO METAB OLIC PANEL urea nitrogen (BUN) 14 mg/dL 7-25 normal Not Available [address], [address], 03/08/2023 04:32:50 03/07/20 23 03/08/2023 COMPR EHENS DELFINO METAB OLIC PANEL creatinine 0.58 mg/dL 0.50-1 .05 normal Not Available [facility] [address] [address], [place], [address], 03/08/2023 04:32:50 03/07/20 23 03/08/2023 COMPR EHENS DELFINO METAB OLIC PANEL eGFR 104 mL/mi n/1.7 3m2 > or = 60 normal The eGFR is based on the CKD-E PI 2020 equat ion. To calcu late the new eGFR from a previ ous Creat inine or Cysta tin C resul t, go to https ://barbara w.hesham galloway.o yessy/pr ofess ional s/ kdoqi /gfr% 5Fcal culat or Not Available [address], [address], 03/08/2023 04:32:50 03/07/20 23 03/08/2023 COMPR EHENS DELFINO METAB OLIC PANEL BUN/creatini ne ratio NOT APPLIC ABLE (calc ) 6-22 Not Available [address], [address], 03/08/2023 04:32:50 03/07/20 23 03/08/2023 COMPR EHENS DELFINO METAB OLIC PANEL sodium 139 mmol/ L 135-14 6 normal Not Available [address], [address], 03/08/2023 04:32:50 03/07/20 23 03/08/2023 COMPR EHENS DELFINO METAB OLIC PANEL potassium 4.1 mmol/ L 3.5-5. 3 normal Not Available [address], [address], 03/08/2023 04:32:50 03/07/20 23 03/08/2023 COMPR EHENS DELFINO METAB OLIC PANEL chloride 103 mmol/ L 98-110 normal Not Available [address], [address], 03/08/2023 04:32:50 03/07/20 23 03/08/2023 COMPR EHENS DELFINO METAB OLIC PANEL carbon dioxide 26 mmol/ L 20-32 normal Not Available [address], [address], 03/08/2023 04:32:50 03/07/20 23 03/08/2023 COMPR EHENS [facility] METAB OLIC PANEL calcium 9.7 mg/dL 8.6-10 .4 normal Not Available [address], [address], 03/08/2023 04:32:50 03/07/20 23 03/08/2023 COMPR EHENS [facility] METAB OLIC PANEL protein, total 6.8 g/dL 6.1-8. 1 normal Not Available [address], [address], 03/08/2023 04:32:50 03/07/20 23 03/08/2023 COMPR EHENS [facility] METAB OLIC PANEL albumin 4.5 g/dL 3.6-5. 1 normal Not Available [address], [address], 03/08/2023 04:32:50 03/07/20 23 03/08/2023 COMPR EHENS [facility] METAB OLIC PANEL globulin 2.3 g/dL_ (calc ) 1.9-3. 7 normal Not Available [address], [address], 03/08/2023 04:32:50 03/07/20 23 03/08/2023 COMPR EHENS [facility] METAB OLIC PANEL albumin/glob ulin ratio 2.0 (calc ) 1.0-2. 5 normal Not Available [address], [address], 03/08/2023 04:32:50 03/07/20 23 03/08/2023 COMPR EHENS [facility] METAB OLIC PANEL bilirubin, total 0.5 mg/dL 0.2-1. 2 normal Not Available [address] [address] [place], [address], 03/08/2023 04:32:50 03/07/20 23 03/08/2023 COMPR EHENS [facility]O METAB OLIC PANEL alkaline phosphatase 74 U/L 37-153 normal Not Available [address] [address] [place], [address], 03/08/2023 04:32:50 03/07/20 23 03/08/2023 COMPR EHENS DELFINO METAB OLIC PANEL AST 24 U/L 10-35 normal Not Available [address] [address] [place], [address], 03/08/2023 04:32:50 03/07/20 23 03/08/2023 COMPR EHENS DELFINO METAB OLIC PANEL ALT 18 U/L 6-29 normal Not Available [address] [address] [place], [address], 03/08/2023 04:32:50 03/07/20 23 03/08/2023 VITAM IN D,25- OH,TO RENATA,I A vitamin D,25-oh,tota l,ia 37 NG/mL 30-100 normal Vitam in D Statu s 25-OH Vitam in D: Defic iency : <20 ng/mL Insuf ficie ncy: 20 - 29 ng/mL Optim al: > or = 30 ng/mL For 25-OH Vitam in D testi ng on patie nts on D2-turner pplem entat ion and patie nts for whom quant itati on of D2 and D3 fract ions is requi red, the [facility] Assur eD(TM ) 25-OH VIT D, (D2,D 3), LC/MS /MS is recom te d: order code 80677 (jermaine ents >2yrs ). See Note 1 Note 1 For addit ional infor emily zapata refer to http: //adriel Christensen gnost ics.c om/fa q/FAQ 199 (This link is being provi ded for infor matshaina nal/ educa jesica l purpo ses only. ) Not Available [facility] [address] [place], [address], 03/08/2023 04:32:50 03/07/20 23 03/08/2023 HEMOG LOBIN A1C hemoglobin A1C 5.4 %_of_ total _HGB <5.7 normal For the purpo se of scremo jerryg for the prese nce of diabe vazquez: <5.7% Consi stent with the absen ce of diabe vazquez 5.7-6 .4% Consi stent with incre ased risk for diabe vazquez (pred iabet es) > or =6.5% Consi stent with diabe vazquez This assay resul t is consi stent with a decre ased risk of diabe vazquez. Curre ntly, no conse nsus exist s to conner use of hemog lobin A1c for diagn osis of diabe vazquez in child robby. Accor ding to Ameri can Diabe vazquez Assoc iatio n (ADA) guide lines , hemog lobin A1c <7.0% repre sents optim al contr ol in non-p regna nt diabe tic patie nts. Diffe rent metri cs may apply to speci fic patie nt popul ation s. [facility]ds [facility] Medic al Care in Diabe vazquez(A DA). Not Available [facility] [address] [place], [address], 03/08/2023 04:32:51 04/02/20 23 04/10/2023 PTH, INTAC T AND CALCI UM parathyroid hormone, intact 21 pg/mL 16-77 normal Inter preti ve Guide Intac t PTH Calci um ----- ----- ----- --- ----- ----- ----- -- Caron l Parat hyroi d Caron l Caron l Hypop yazmin yroid ism Low or Low Caron l Low Hyper parat hyroi dism Prima ry Caron l or High High Secon alisa High Caron l or Low Terti elvia High High Non-P yazmin yroid Hyper calce dimitri Low or Low Caron l High Not Available [address], [address], 04/10/2023 13:01:42 04/02/20 23 04/10/2023 PTH, INTAC T AND CALCI UM calcium 9.6 mg/dL 8.6-10 .4 normal Not Available [address], [address], 04/10/2023 13:01:42 04/02/20 23 04/10/2023 PHOSP HATE ( PHOSP HORUS ) phosphate ( phosphorus) 3.6 mg/dL 2.5-4. 5 normal Not Available [address], [address], 04/10/2023 13:01:42 04/02/20 23 04/10/2023 COMPR EHENS DELFINO METAB OLIC PANEL glucose 89 mg/dL 65-99 normal Fasti ng refer ence inter dionne Not Available [address], [address], 04/10/2023 13:01:43 04/02/20 23 04/10/2023 COMPR EHENS DELFINO METAB OLIC PANEL urea nitrogen (BUN) 13 mg/dL 7-25 normal Not Available [address], [address], 04/10/2023 13:01:43 04/02/20 23 04/10/2023 COMPR EHENS DELFINO METAB OLIC PANEL creatinine 0.57 mg/dL 0.50-1 .05 normal Not Available [address], [address], 04/10/2023 13:01:43 04/02/20 23 04/10/2023 COMPR EHENS DELFINO METAB OLIC PANEL eGFR 104 mL/mi n/1.7 3m2 > or = 60 normal The eGFR is based on the CKD-E PI 2020 equat ion. To calcu late the new eGFR from a previ ous Creat inine or Cysta priya govea t, go to https :[email or web address] [email or web address] meyer s/ kdoqi /gfr% 5Fcal culat or Not Available [address] [address] [place], [address], 04/10/2023 13:01:43 04/02/20 23 04/10/2023 COMPR EHENS DELFINO METAB OLIC PANEL BUN/creatini ne ratio NOT APPLIC ABLE (calc ) 6-22 Not Available [address], [address], 04/10/2023 13:01:43 04/02/20 23 04/10/2023 COMPR EHENS DELFINO METAB OLIC PANEL sodium 138 mmol/ L 135-14 6 normal Not Available [address] [address] [place], [address], 04/10/2023 13:01:43 04/02/20 23 04/10/2023 COMPR EHENS DELFINO METAB OLIC PANEL potassium 4.1 mmol/ L 3.5-5. 3 normal Not Available [address], [address], 04/10/2023 13:01:43 04/02/20 23 04/10/2023 COMPR EHENS DELFINO METAB OLIC PANEL chloride 102 mmol/ L 98-110 normal Not Available [facility] [address] [address] [place], [address], 04/10/2023 13:01:43 04/02/20 23 04/10/2023 COMPR EHENS DELFINO METAB OLIC PANEL carbon dioxide 27 mmol/ L 20-32 normal Not Available [address] [address] [place], [address], 04/10/2023 13:01:43 04/02/20 23 04/10/2023 COMPR EHENS DELFINO METAB OLIC PANEL calcium 9.6 mg/dL 8.6-10 .4 normal Not Available [address], [address], 04/10/2023 13:01:43 04/02/20 23 04/10/2023 COMPR EHENS DELFINO METAB OLIC PANEL protein, total 7.0 g/dL 6.1-8. 1 normal Not Available [address], [address], 04/10/2023 13:01:43 04/02/20 23 04/10/2023 COMPR EHENS DELFINO METAB OLIC PANEL albumin 4.7 g/dL 3.6-5. 1 normal Not Available [address], [address], 04/10/2023 13:01:43 04/02/20 23 04/10/2023 COMPR EHENS DELFINO METAB OLIC PANEL globulin 2.3 g/dL_ (calc ) 1.9-3. 7 normal Not Available [address], [address], 04/10/2023 13:01:43 04/02/20 23 04/10/2023 COMPR EHENS DELFINO METAB OLIC PANEL albumin/glob ulin ratio 2.0 (calc ) 1.0-2. 5 normal Not Available [address], [address], 04/10/2023 13:01:43 04/02/20 23 04/10/2023 COMPR EHENS DELFINO METAB OLIC PANEL bilirubin, total 0.7 mg/dL 0.2-1. 2 normal Not Available [address], [address], 04/10/2023 13:01:43 04/02/20 23 04/10/2023 COMPR EHENS DELFINO METAB OLIC PANEL alkaline phosphatase 72 U/L 37-153 normal Not Available [facility] [employer] [address] [address] [place], [address], 04/10/2023 13:01:43 04/02/20 23 04/10/2023 COMPR EHENS DELFINO METAB OLIC PANEL AST 24 U/L 10-35 normal Not Available [facility] [employer] [address] [address] [place], [address], 04/10/2023 13:01:43 04/02/20 23 04/10/2023 COMPR EHENS DELFINO METAB OLIC PANEL ALT 19 U/L 6-29 normal Not Available [address], [address], 04/10/2023 13:01:43 04/02/2004/10/2023 DEXAM ETHAS ONE dexamethason e 57 NG/dL Refer ence Range s for Dexam ethas one: Basel ine: Less than 20 ng/dL 1 mg dexam ethas one overn ight: 180-5 50 ng/dL (8:00 -10:0 0 AM) This test was devel oped and its ajit tical perfo rmanc e issac cteri stics have been deter mined by [facility] Santiago Frenchi jass Vazquez . It has not been clear ed or appro jake by FDA. This assay has been valid ated pursu ant to the CLIA regul ation s and is used for clini shana purpo ses. Not Available [facility] [employer] [address] [address] [place], [address], 04/10/2023 13:01:44 04/02/2004/10/2023 CORTI LAURA, A.M. cortisol, A.M. 9.3 mcg/d L normal Refer ence Range 8 a.m. (7-9 a.m.) Speci men: 4.0-2 2.0 Not Available [facility] [address] [address] [place], [address], 04/10/2023 13:01:45 04/02/20 23 04/10/2023 VITAM IN D,25- OH,TO RENATA,I A vitamin D,25-oh,tota l,ia 43 NG/mL 30-100 normal Vitam in D Statu s 25-OH Vitam in D: Defic iency : <20 ng/mL Insuf ficie ncy: 20 - 29 ng/mL Optim al: > or = 30 ng/mL For 25-OH Vitam in D testi ng on patie nts on D2-turner pplem entat ion and patie nts for whom quant itati on of D2 and D3 fract ions is requi red, the [facility] Assur eD(TM ) 25-OH VIT D, (D2,D 3), LC/MS /MS is recom te d: order code [id number] (jermaine ents >2yrs ). See Note 1 Note 1 For addit ional infor emily zapata e refer to http: //[facility] yovani Christensen gnost ics.c om/fa q/FAQ 199 (This link is being provi ded for infor mirian may/ educdavin gamez purpo ses only. ) Not Available [facility] [address] [address] [place], [address], 04/10/2023 13:01:46 04/02/20 23 04/10/2023 TSH+F REE T4 TSH 4.71 mIU/L 0.40-4 .50 high Not Available [facility] [address] [address] [place], [address], 04/10/2023 13:01:46 04/02/20 23 04/10/2023 TSH+F REE T4 T4, free 1.2 NG/dL 0.8-1. 8 normal Not Available [facility] [address], [address], 04/10/2023 13:01:46 04/25/20 23 05/01/2023 DEXAM ETHAS ONE dexamethason e 44 NG/dL Refer ence Range s for Dexam ethas one: Basel ine: Less than 20 ng/dL 1 mg dexam ethas one overn ight: 180-5 50 ng/dL (8:00 -10:0 0 AM) This test was devlinda morris and its ajit tical perfo rmanc e issac cteri stics have been deter mined by [facility] Santiago marylin Frenchi christianoe [employer]rer edaramona . It has not been clear ed or appro jake by FDA. This assay has been valid ated pursu ant to the CLIA regul ation s and is used for clini shana purpo ses. Not Available [facility] [address] [place], [address], 05/01/2023 13:50:36 04/25/2005/01/2023 CORTI LAURA, A.M. cortisol, A.M. 1.0 mcg/d L low Refer ence Range 8 a.m. (7-9 a.m.) Speci men: 4.0-2 2.0 Not Available [facility] [address] [address], [place], [address], 05/01/2023 13:50:37 03/04/20 23 09/24/2022 DEXA, axial skele ton No observ ation record ed. [email or web address] Not Available 2022 16:24:56 Result Notes None recorded. Problems Name Problem SNOMED Code Status Onset Date Resolution Date Notes Provider Name and Address Organization Details Recorded Time Postmenopausa l osteoporosis 243032788 Active 2021 Not Available [facility] 3 00:53:43 Enlarged uterus 563320852 Active Not Available [facility] 3 00:53:43 Low back pain 548281452 Active Not Available [facility] 3 00:53:43 Menometrorrha susan 463587197 Active Not Available [facility] 3 00:53:43 Dyslipidemia 300094765 Active 2021 Not Available [facility] 3 00:53:43 Impaired fasting glycemia 564005605 Active 2021 Not Available [facility] 3 00:53:43 Irregular periods 02307048 Active Not Available [facility] 3 00:53:43 Osteochondrit is dissecans 82859334 Active Not Available [facility] 3 00:53:43 Problem Notes None recorded. Procedures Surgical History Date Name Laterality Status Provider Name and Address Organization Details Recorded Time Ablation completed Not Available [facility] 00:46:51 Removal of ovary(s) completed Not Available [facility] 01/30/2023 00:46:51 Hand completed Not Available [facility] 12/2022 00:46:51 Imaging Results Imaging Date Name Status LastModified by Organiz ation Details LastModified Time 09/24/2022 DEXA, axial skeleton completed [email or web address] Information not available 03/06/2023 16:24:56 Procedure Notes None recorded. Medical Equipment None Reported. Allergies Allergen ID Allergen Name Allergen Category Reaction Reaction Severity Criticality Documentation Date Start Date Code Code System Note Provider Name and Address Organization Details Recorded Time 1271 tetracycl ine medicatio n hives severe Not available 01/30/2023 20255 RxNorm Not Available [facility] 3 01:01:58 1272 sulfameth oxazole / trimethop rim medicatio n hives moderate Not available 01/30/2023 53094 RxNorm Not Available [facility] 3 01:01:58 1273 Medicinal product containin g penicilli n and acting as antibacte rial agent (product) medicatio n hives severe Not available 01/30/2023 43774 05 SNOMED Not Available [facility] 3 01:01:58 1274 erythromy clara medicatio n anaphylax is severe Not available 01/30/2023 4053 RxNorm Not Available [facility] 3 01:01:58 1275 amoxicill in medicatio n hives mild Not available 01/30/2023 723 RxNorm child oropeza Not Available [facility] 3 01:01:58 Medications Name Sig Start Date Stop Date Status Note LastModified by Organization Details LastModified Time cyclobenzap rine 10 mg tablet active Not Available Not Available Not Available atorvastati n 40 mg tablet TAKE 1 TABLET BY MOUTH EVERY DAY active Not Available Not Available No t Available silver sulfadiazin e 1 % topical cream 09/17 completed Not Available Not Available Not Available prednisone 10 mg tablet 06/06 completed Not Available Not Available Not Available clindamycin HCl 300 mg capsule TAKE 1 CAPSULE BY MOUTH FOUR TIMES DAILY active Not Available Not Available No t Available triamcinolo ne acetonide 0.5 % topical cream JAYLIN EXT AA BID FOR 2 WKS 06/06 completed Not Available Not Available Not Available azithromyci n 250 mg tablet 10/18 completed Not Available Not Available Not Available ibuprofen 800 mg tablet TAKE 1 TABLET BY MOUTH EVERY 8 HOURS NEEDED FOR PAIN 10/18 completed Not Available Not Available Not Available spironolact one 100 mg tablet active Not Available Not Available Not Available clindamycin HCl 150 mg capsule TAKE 4 CAPSULES BY MOUTH 1 HOUR BEFORE SURGERY active Not Available Not Available No t Available ciprofloxac in 500 mg tablet 08/06 completed Not Available Not Available Not Available Bisac-Evac 10 mg rectal suppository UTD PER INSTRUCTI ON SHEET. active Not Available Not Available No t Available tramadol 50 mg tablet active Not Available Not Available No t Available triamcinolo ne acetonide 0.025 % topical cream 08/06 completed Not Available Not Available Not Available dexamethaso ne 1 mg tablet TAKE 1 TABLET BY MOUTH AT 10 PM NIGHT BEFORE 8 AM CORTISOL active Not Available Not Available No t Available hydrocodone 7.5 mg-acetamin ophen 325 mg tablet TK 1 T PO Q 4 H 08/23 completed Not Available Not Available Not Available tacrolimus 0.1 % topical ointment active Not Available Not Available Not Available misoprostol 200 mcg tablet Take 2 tablets by oral route at bedtime for 1 day. active Not Available Not Available No t Available aspirin 81 mg chewable tablet Chew 1 tablet every day by oral route. 08/06 completed Not Available Not Available Not Available diclofenac sodium 75 mg tablet,mike yed release 09/17 completed Not Available Not Available Not Available mupirocin 2 % topical ointment JAYLIN EXT AA TID 06/06 completed Not Available Not Available Not Available epinephrine 0.3 mg/0.3 mL injection, auto-inject or INJECT 0.3 MG IN THE MUSCLE EVERY 4 HOURS NEEDED FOR ANAPHYLAX IS active Not Available Not Available No t Available levofloxaci n 500 mg tablet active Not Available Not Available Not Available methylpredn isolone 4 mg tablets in a dose pack 09/17 completed Not Available Not Available Not Available ezetimibe 10 mg tablet TAKE 1 TABLET BY MOUTH EVERY DAY active Not Available Not Available No t Available rosuvastati n 5 mg tablet TAKE 1 TABLET BY MOUTH DAILY 03/29 completed Not Available Not Available Not Available chlorhexidi ne gluconate 0.12 % mouthwash SWISH AND SPIT 10 TO 15 ML TWICE DAILY FOR 1 WEEK BEFORE AND AFTER SURGERY active Not Available Not Available No t Available Claritin 2014 active Not Available Not Available Not Avai lable peg 3350 240 gram-electr olytes 22.72 gram-6.72 g-5.84 g powdr for soln active Not Available Not Available Not Available Tilia Fe 1-20 (5)/1-30(7) /1mg-35mcg( 9) tablet active Not Available Not Available No t Available Aczone 5 % topical gel 08/26 completed Not Available Not Available Not Available Vivotif 2 billion unit capsule,del ayed release 08/06 completed Not Available Not Available Not Available Aczone 7.5 % topical gel with pump APPLY TO AFFECTED AREA S EVERY DAY DIRECTED 08/26 completed Not Available Not Available Not Available ID NOW COVID-19 Test Kit TEST DIRECTED TODAY active Not Available Not Available No t Available Vitals Date Recorded Body mass index (BMI) Body height Oxygen saturation Oxygen saturation in Arterial blood by Pulse oximetry Heart rate Body temperature Body weight Systolic blood pressure Diastolic blood pressure Provider Name and Address Organization Details Last Updated DateTime 2 19.4 kg/m2 170.18 cm 91 % 91 % 69 /min 97.8 [degF] 69547.4 5 g 110 mm[Hg] 75 mm[Hg] Not Available [facility] 3 00:51:24 Date Recorded Body mass index (BMI) Body height Oxygen saturation Oxygen saturation in Arterial blood by Pulse oximetry Heart rate Body temperature Body weight Systolic blood pressure Diastolic blood pressure Provider Name and Address Organization Details Last Updated DateTime 2 19.1 kg/m2 170.18 cm 98 % 98 % 61 /min 97.6 [degF] 45823.9 9 g 110 mm[Hg] 75 mm[Hg] Not Available [facility] 3 00:51:24 Date Recorded Body height Body mass index (BMI) Body weight Body temperature Heart rate Systolic blood pressure Diastolic blood pressure Provider Name and Address Organization Details Last Updated DateTime 3 170.18 cm 19 kg/m2 64584.8 3 g 97.8 [degF] 62 /min 130 mm[Hg] 84 mm[Hg] GREG Eaton [facility] 3 12:31:20 Date Recorded Body height Body mass index (BMI) Body weight Body temperature Heart rate Systolic blood pressure Diastolic blood pressure Provider Name and Address Organization Details Last Updated DateTime 3 170.18 cm 19.1 kg/m2 22219.9 9 g 97.4 [degF] 69 /min 124 mm[Hg] 80 mm[Hg] Karen Esparza MA [facility] 3 12:37:26 Social History Question Answer Notes LastModified by Organizat ion Details LastModified Time Tobacco Smoking Status Never Smoker EMELIA Moss, [facility] 08/22/2023 12:26:49 What Is Your Level Of Alcohol Consumption? Moderate [id number] Information not available 01/30/2023 What Is Your Level Of Caffeine Consumption? 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 [id number] Information not available 01/30/2023 Do You Use Any Illicit Or Recreational Drugs? No Information not available 08/22/2023 Has Tobacco Cessation Counseling Been Provided? No Information not available 08/22/2023 Do You Or Have You Ever Used Any Other Forms Of Tobacco Or Nicotine? No Information not available 08/22/2023 Sex: Unknown Functional Status None recorded. Mental Status None recorded. Family History Nothing Reported. Medical History No medical history recorded. Gynecological HistoryNo gynecological history recorded. Obstetrics History GPAL:G 0 P 0 0 0 0 Past Encounters Encounter ID Performer Location Encounter Start Date Encounter Closed Date Diagnosis/Indication Diagnosis SNOMED-CT Code Diagnosis ICD10 Code Diagnosis Note [id number] [facility] [place] [address] [place] [address] 08/22/2021 00:00:00 08/22/2021 09:29:00 [id number] [facility] [place] [address] [place] [address] 04/09/2022 00:00:00 04/09/2022 13:23:42 [id number] [facility] [place] [address] [place] [address] 10/18/2022 00:00:00 10/18/2022 14:58:02 [id number] Evelin Bolden MD [facility] [place] [address] [place] [address] 03/29/2023 12:02:13 03/29/2023 13:16:18 Postmenopausal osteoporosis 529500949 M81.0 Most recent bone density scan revealed significan t bone loss of lumbar spine- her workup did not show evidence of hypercalci uria or hyperparat hyroidism. Her DST was 1.1 ug/dL from 2020- repeat as noted below as hypercorti solism is known to cause bone loss. would recommend patient consider an anabolic hormone therapy such as forteo or tymlos (she has no hx of cancer or radiation therapy in past). These agents are known to increase levels of insulin-li ke growth factor 1, resulting in increase in the number of osteoblast precursors , and increase of osteoblast survival, in addition to activation of the calcium protein kinase C pathway that stimulates proliferat ion of cells in the osteoblast ic lineage along with multiple Wnt signaling upregulati on and most importantl y helps to increase trabecular bone volume. This would have the greatest impact in bone increase in trabecular bone sites/ LS. Will send for low dose dexa suppressio n testing to screen for hypercorti solic state. Impaired f asting glycemia 187305923 R73.01 A1C 5.4%- glucose in range. Her weight is in ideal range. Sending for DST to screen for hypercorti slism as this could have impact on glucose control. Spent up to 25 minutes preparing to see the patient (eg, review of tests), obtaining and/or reviewing separately obtained history, performing a medically appropriat e examinatio n and evaluation , counseling and educating the patient, ordering medication s, tests, along with documentin g clinical informatio n in the electronic health record, independen tly interpreti ng results and communicat ing results to the patient. RTC in 6 months. Patient was provided a handwritte n lab order which contains our fax number. If she chooses to go outside of the [facility] system to obtain labwork she was advised to provide our fax number and my informatio n to the lab she will be obtaining labwork from in order to have her labs properly forwarded over for me to review so there is no loss of follow up due to use of outside network. She was also advised to contact our clinic informing us that she has completed her labwork so we are aware we will need to reach out to the appropriat e laboratory to request her results be forwarded to us so I might have the ability to review and make further medical decision making in her case. She voiced understand ing. [id number] Evelin Bolden MD [facility] [address] [place] [address] 08/22/2023 12:26:03 08/22/2023 12:59:08 Postmenopausal osteoporosis 348282049 M81.0 Most recent bone density scan revealed significan t bone loss of lumbar spine- her workup did not show evidence of hypercalci uria or hyperparat hyroidism. Her DST was 1.1 ug/dL from 2020- most recent from April was 1.0 ug/dL however her dexa level was not elevated so not reliable. May need to repeat in future if her repeat scans show any worsening bone loss (she has had CT adrenals and MRI pituitary in 2020 all of which were normal). Would recommend patient consider an anabolic hormone therapy such as forteo or tymlos (she has no hx of cancer or radiation therapy in past). These agents are known to increase levels of insulin-li ke growth factor 1, resulting in increase in the number of osteoblast precursors , and increase of osteoblast survival, in addition to activation of the calcium protein kinase C pathway that stimulates proliferat ion of cells in the osteoblast ic lineage along with multiple Wnt signaling upregulati on and most importantl y helps to increase trabecular bone volume. This would have the greatest impact in bone increase in trabecular bone sites/ LS. She needs to have close monitoring when on these agents. She is aware of my resignatio n and I have placed referral to new endocrinol ogy to discuss starting and continuati on of therapy. Spent up to 18 minutes preparing to see the patient (eg, review of tests), obtaining and/or reviewing separately obtained history, performing a medically appropriat e examinatio n and evaluation , counseling and educating the patient, ordering medication s, tests, along with documentin g clinical informatio n in the electronic health record, independen tly interpreti ng results and communicat ing results to the patient. Patient can be followed by PCP - she/he is aware of my resignatio n and last day of September 13. If needed his/her PCP can refer patient to another endocrinol ogist in the area. All questions /concerns answered and refills necessary at visit today. Health Concerns Section Related Observation LastModified by Organization Detai ls LastModified Time None Recorded Concern Status LastModified by Organization Details LastModified Time None Recorded Advance Directives Directive None Recorded Payers Encounter Date Sequence Insurance Name Policy Number Policy Keane Covered Member ID Keane Member ID Guarantor Name 03/29/2023 1 Q [employer] - [employer] - OPEN ACCESS Catarina Yodit Movatuitt [id number] OI Catarina Nuno 08/22/2023 1 Q Interactive - [employer] Nu3 - OPEN ACCESS Catarina Yodit Movatuitt [id number] OI Catarina Nuno Notes Date Note Type Note Provider Name and Address Organization Details Recorded Time 03/29/2023 text/html 58 yo female com es in for follow up in management of postmenopausal osteoporosis, impaired fasting glucose last seen in Oct at that time we continued calcium and vitamin D support along with natural insulin sensitizers. She went to see her terminal press operator on Saturday and not planning to start a statin at this time. She will go for CT calcium score next week. She is seeing a spinal surgeon for her lumbar spinal stenosis. She will be undergoing PT therapy. She is exercising/walking regularly and taking calcium and vitamin D supplementation. No recent fractures or kidney stones to her knowledge. labs from 03/07/23:a1c 5.4%vit D 37 ng/MLglucose 89 mg/dLCr normalLFT normalPO4 3.5 ng/mL259/116/81/155PTH 20 pg/mLcalcium 9.7 mg/dL last bone density from 09/22:T score of -3.2 of LST score -2.0 of total left hipT score of -2.4 of total right hip Workup in past for bone loss:Repeat labwork for cortisol from 06/21:24 hour urinary cortisol 59.5 ug/24 hourdexa suppression 1.1 ug/dL off HRT so considered negativesalivary cortisol negative x 20.06 ug/dL0.07 ug/dLImaging from 02/19:normal MRI pituitarynormal adrenal glands Evelin Bolden MD [address], [facility] [address], [place], [address], [facility] Remitly 03/29/2023 13:55:23 08/22/2023 text/html 58 yo female com es in for follow up in management of postmenopausal osteoporosis, impaired fasting glucose.last seen in March at that time we continued calcium and vitamin D support along with natural insulin sensitizers. She is seeing cardiology for management of PVC and recently placed on statin therapy as she had poor lipoprotein levels- has genetic predisposition to dyslipidemia. She is now taking ezetimibe and atorvastatin.Her levels improved by half overall. She had a positive calcium CT score- she had up to 34% blockage on her imaging. Bone density scan from 09/2022:T score of -3.2 of LShas osteopenia of hips bilaterally. She has no falls or fractures. She is cycling regularly and active. She doesn't lift and doing stretches and pilates to help with her muscles/core strengthening. labs from April 2023:cortisol 1.0 ug/dLdexa 44 ng/mL so unreliable test labs from April 2023:TSH 4.71 uIU/mlFT4 of 1.2 ng/dLvit D of 43 ng/mlglucose 89 mg/dlCr normalLFT normalPO4 normalPTH 21 pg/mLcalcium 9.6 mg/dL she is on citracal, probiotic and multivitamin and found out she has a stomach ulcer. l She started omeprazole and better- she will go for EGD to assess further. She did stop tomatoes and citrus. Evelin Bolden MD [address], [facility] [address], [place], [address], [place] - [facility] 08/22/2023 13:23:54 OBGyn Episode No OBEpisode recorded.
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
--- OUTSIDE RECORDS SUMMARY | 2024-12-17 04:00 | XMS_ITS | CONTINUITY OF CARE DOCUMENT ---
Author Name balwinder, balwinder Address Unknown Organization [facility] Address [address] [place] [address] Phone [phone] Care Team Providers Care Copy Center Associate Name Role Phone Mario Boston MD Unavailable KOKI ROBB, VICKI Unavailable KOKI ROBB, VICKI Unavailable [phone] PROBLEMS Condition Status Date Provider Notes Elevated LFTs active Mario Boston MD Coronary atherosclerosis, CA C score 38 04/2023 active Mario Boston MD Elevated Lipoprotein(a) active Mario Morel ra, MD Abnormal labs, elevated APOB active Mario Boston MD Hyperlipidemia active Mario Boston MD Elevated blood pressure read ing without diagnosis of hypertension active Mario Boston MD Palpitations active Raghu Oglesby MD Mitral valve prolapse, hx of active Raghu davalos MD Other symptoms involving cardiovascular system completed - Mario Boston MD Family History of Hypertension: completed - Abhinav Boston MD Family History of Hypertension: completed - Abhinav Boston MD ENCOUNTERS Date Type Provider Location Encounter Diag nosis - In-person encounter Office Visit Mario Boston MD [facility] - In-person encounter Office Visit [facility] - In-person encounter Office Visit Mario Boston MD [facility] - In-person encounter Office Visit Mario Boston MD [facility] - In-person encounter Office Visit Mario Boston MD [facility] Elevated LFTs - In-person encounter Office Visit Mario Boston MD [facility] Abnormal labs, elevated APOBElevated Lipoprotein(a)Coronary atherosclerosis, CAC score 38 04/2023 - In-person encounter Office Visit Mario Boston MD [facility] Hyperlipidemia - In-person encounter Office Visit Mario Boston MD [facility] - In-person encounter Office Visit Mario Boston MD [facility] Family History of Hypertension:Family History of Hypertension:Other symptoms involving cardiovascular system - In-person encounter Office Visit Dirk Morocho MD [facility] - In-person encounter Office Visit Mario Boston MD [facility] - In-person encounter Office Visit Mario Boston MD [place] [facility] - In-person encounter Office Visit [facility] - In-person encounter Office Visit Mario Boston MD [facility] - In-person encounter Office Visit Mario Boston MD [facility] Elevated blood pressure reading without diagnosis of hypertension - In-person encounter Office Visit Raghu Oglesby MD [facility] Mitral valve prolapse, hx ofPalpitations VITAL SIGNS Date Observation Value Provider Body Mass Index (Ratio) 18.40 kg/m2 Dieter Moctezuma blood pressure, cuff size regular Ke emy Raya blood pressure, diastolic 80 mm[Hg] [facility], systolic 124 mm[Hg] [facility] saturation, oximetry 97 % Loren Robertoeld respiratory rate E&M 12 /min Loren jadeeld pulse rate 67 /min Loren Marin [facility] weight E&M 121 [lb_av] Loren Marin [facility] height E&M 68 [in_i] Lroen Marin [facility] Body Mass Index (Ratio) 18.09 kg/m2 Charu Boston MD blood pressure, cuff size regular [facility] blood pressure, diastolic 76 mm[Hg] [facility] blood pressure, systolic 118 mm[Hg] [facility] pulse rate 80 /min [facility] oxygen saturation, oximetry 98 % [facility] respiratory rate E&M 16 /min Clara [facility] E&M 119 [lb_av] [facility] height E&M 68 [in_i] [facility] Body Mass Index (Ratio) 18.24 kg/m2 Charu Boston MD blood pressure, cuff size small Antelmo et blood pressure, diastolic 79 mm[Hg] Antelmo rret blood pressure, systolic 126 mm[Hg] [facility] pulse rate 68 /min Freddy y oxygen saturation, oximetry 96 % Freddy respiratory rate E&M 12 /min Freddy weight E&M 120 [lb_av] Freddy y height E&M 68 [in_i] Freddy y Body Mass Index (Ratio) 18.64 kg/m2 Charu Boston MD blood pressure, diastolic 92 mm[Hg] Jenn nkLogic blood pressure, systolic 135 mm[Hg] Chelo kLogic blood pressure, diastolic 92 mm[Hg] Jenn medina Ariza blood pressure, systolic 135 mm[Hg] Negar swannh Ariza blood pressure, cuff size regular Jenn medina Ariza respiratory rate E&M 16 /min [facility], oxim[facility] 99 % [facility] pulse rate 70 /min [facility] weight E&M 122.6 [lb_av] [facility] height E&M 68 [in_i] [facility] Body Mass Index (Ratio) 18.24 kg/m2 Charu Boston MD height E&M 68 [in_i] Mario Boston MD blood pressure, diastolic 93 mm[Hg] Li sa Moore blood pressure, systolic 127 mm[Hg] Lis a Moore blood pressure, cuff size regular Jenn sa Moore pulse rate 85 /min Ludmila Moore oxygen saturation, oximetry 97 % Ludmila Moore weight E&M 120 [lb_av] Ludmila Moore Body Mass Index (Ratio) 18.70 kg/m2 Charu Boston MD blood pressure, diastolic 87 mm[Hg] An crow Donovan blood pressure, systolic 126 mm[Hg] Any a Zion pulse rate 65 /min Juliann Zion oxygen saturation, oximetry 100 % Juliann Zion weight E&M 123 [lb_av] Juliann Zion blood pressure, cuff size large An crow Donoavn height E&M 68 [in_i] Juliann Zion Body Mass Index (Ratio) 18.85 kg/m2 Charu Boston MD blood pressure, cuff size regular Edwin rrsathish Paulkatiemalakasiasinai blood pressure, diastolic 86 mm[Hg] Edwin rri Paullatoyasinai blood pressure, systolic 146 mm[Hg] Frdedie muller Paulkatiemalakasiasinai oxygen saturation, oximetry 98 % Loren Paulkatieangel respiratory rate E&M 14 /min Loren Sharon elizabethenenfeldteri pulse rate 64 /min Loren Paulwilfredokasiamo mik weight E&M 124 [lb_av] Loren Paullatoyamo houser height E&M 68 [in_i] Loren Tania houser Body Mass Index (Ratio) 19.16 kg/m2 Charu Boston MD blood pressure, diastolic 80 mm[Hg] Jenn nkLogronaldo blood pressure, systolic 138 mm[Hg] Chelo kLogronaldo blood pressure, diastolic 80 mm[Hg] Solitario Snyder blood pressure, systolic 138 mm[Hg] Rho flora Snyder oxygen saturation, oximetry 98 % Jennifer Snyder respiratory rate E&M 18 /min Jennifer Snyder pulse rate 78 /min Jennifer Snyder blood pressure, resting No Rhon zina Snyder weight E&M 126 [lb_av] Jennifer Snyder height E&M 68 [in_i] Jennifer Snyder Body Mass Index (Ratio) 18.24 kg/m2 Gregorio Morocho MD blood pressure, diastolic 80 mm[Hg] Rh onda Lillian blood pressure, systolic 120 mm[Hg] Rho flora Snyder blood pressure, cuff size regular Rh onzina Snyder oxygen saturation, oximetry 99 % Jennifer Snyder respiratory rate E&M 18 /min Jennifer Snyder pulse rate 66 /min Jennifer Lillian weight E&M 120 [lb_av] Jennifer Snyder height E&M 68 [in_i] Jennifer Snyder Body Mass Index (Ratio) 18.70 kg/m2 Charu Boston MD blood pressure, diastolic 76 mm[Hg] Juan Daniel Alvarengaby blood pressure, systolic 115 mm[Hg] Nicolette Baig pulse rate 63 /min Leah Baig oxygen saturation, oximetry 96 % Leah Baig respiratory rate E&M 17 /min Leah Baig blood pressure, cuff size regular Juan Daniel Baig weight E&M 123 [lb_av] Leah Baig height E&M 68 [in_i] Leah Baig Body Mass Index (Ratio) 19.31 kg/m2 Charu Boston MD blood pressure, cuff size regular Imelda Jeb blood pressure, diastolic 80 mm[Hg] Kala abdi Jeb blood pressure, systolic 122 mm[Hg] Ovidio margie Jeb oxygen saturation, oximetry 98 % Bonita Russ respiratory rate E&M 16 /min Bonitadavin Russ pulse rate 65 /min Bonita Russ weight E&M 127 [lb_av] Bonitadavin Russ height E&M 68 [in_i] Bonita Russ Body Mass Index (Ratio) 18.85 kg/m2 Charu Boston MD pulse rate 70 /min Fatmata hernandez oxygen saturation, oximetry 98 % Fatmata Daniels respiratory rate E&M 16 /min Kris Daniels blood pressure, cuff size regular Antelmo Daneils blood pressure, diastolic 80 mm[Hg] Antelmo Daniels blood pressure, systolic 110 mm[Hg] Elmer Sanchezchata blood pressure, resting No Kinza Sanchezchata weight E&M 124 [lb_av] Fatmtaa hernandez height E&M 68 [in_i] Fatmata hernandez blood pressure, diastolic 72 mm[Hg] Ke maritzai Dorota blood pressure, systolic 102 mm[Hg] Freddie ri Dorota pulse rate 77 /min Loren Tania houserer oxygen saturation, oximetry 97 % Loren Dorota respiratory rate E&M 16 /min Loren G chris Body Mass Index (Ratio) 18.85 kg/m2 Matias i Dorota weight E&M 124 [lb_av] Loren Tania er blood pressure, diastolic 97 mm[Hg] Me mignon Kelley blood pressure, systolic 153 mm[Hg] Maribel anaya Kelley pulse rate 76 /min Elda Kelley oxygen saturation, oximetry 98 % Elda Kelley respiratory rate E&M 15 /min Elda Kelley Body Mass Index (Ratio) 19.00 kg/m2 Penny ssa Kelley weight E&M 125 [lb_av] Elda Kelley blood pressure, diastolic 95 mm[Hg] Me mignon Kelley blood pressure, systolic 131 mm[Hg] Maribel anaya Kelley blood pressure, diastolic 94 mm[Hg] Rosemary Enegl blood pressure, systolic 150 mm[Hg] Heidy Engel Body Mass Index (Ratio) 18.49 kg/m2 Jeannette Engel pulse rate 78 /min Bienvenido howe oxygen saturation, oximetry 97 % Bienvenido Engel respiratory rate E&M 16 /min Christian Engel weight E&M 121.6 [lb_av] Bienvenido culver height E&M 68 [in_i] Bienvenido Lee nskelsey ALLERGIES Allergy Name Onset Date Reaction Criticality Status CEPHALEXIN Unable to assess critical ity aborted HONEY Low Criticality active PENICILLIN Low Criticality active ERYTHROMYCIN Low Criticality active TETRACYCLINE Low Criticality active RESULTS Date Observation Value Provider Reference Range Interpretation Location alanine aminotransferase (SGPT), serum 52 1/L [facility] 6-29 High aspartate aminotransferase (SGOT), serum 42 1/L [facility] 10-35 High alkaline phosphatase, serum 86 1/L [facility] 37-153 Normal bilirubin, serum, indirect 0.5 MG/DL (CALC) [facility] 0.2-1.2 Normal bilirubin, serum, direct 0.2 mg/dL [facility] < OR = 0.2 Normal bilirubin, serum, total 0.7 mg/dL [facility] 0.2-1.2 Normal albumin/globulin ratio, serum 2.0 (calc) [facility] 1.0-2.5 Normal globulins, serum, total 2.2 G/DL (CALC) [facility] 1.9-3.7 Normal albumin, serum 4.5 g/dL [facility] 3.6-5.1 Normal protein, total, serum 6.7 g/dL [facility] 6.1-8.1 Normal cholesterol, non-HDL, total 67 MG/DL (CALC) [facility] <130 Normal cholesterol/HDL ratio, serum, percent 2.0 (calc) [facility] <5.0 Normal LDL cholesterol, serum 53 MG/DL (CALC) [facility] Normal triglyceride, serum, fasting 63 mg/dL [facility] <150 Normal HDL cholesterol, serum 70 mg/dL [facility] > OR = 50 Normal cholesterol, serum 137 mg/dL [facility] <200 Normal alanine aminotransferase (SGPT), serum 38 1/L [facility] 6-29 High aspartate aminotransferase (SGOT), serum 34 1/L [facility] 10-35 Normal alkaline phosphatase, serum 82 1/L [facility] 37-153 Normal bilirubin, serum, indirect 0.5 MG/DL (CALC) [facility] 0.2-1.2 Normal bilirubin, serum, direct 0.2 mg/dL [facility] < OR = 0.2 Normal bilirubin, serum, total 0.7 mg/dL [facility] 0.2-1.2 Normal albumin/globulin ratio, serum 2.4 (calc) [facility] 1.0-2.5 Normal globulins, serum, total 1.9 G/DL (CALC) [facility] 1.9-3.7 Normal albumin, serum 4.5 g/dL [facility] 3.6-5.1 Normal protein, total, serum 6.4 g/dL [facility] 6.1-8.1 Normal alanine aminotransferase (SGPT), serum 42 1/L [facility] 6-29 High aspartate aminotransferase (SGOT), serum 38 1/L [facility] 10-35 High alkaline phosphatase, serum 81 1/L [facility] 37-153 Normal bilirubin, serum, indirect 0.5 MG/DL (CALC) [facility] 0.2-1.2 Normal bilirubin, serum, direct 0.1 mg/dL [facility] < OR = 0.2 Normal bilirubin, serum, total 0.6 mg/dL [facility] 0.2-1.2 Normal albumin/globulin ratio, serum 2.5 (calc) [facility] 1.0-2.5 Normal globulins, serum, total 1.9 G/DL (CALC) [facility] 1.9-3.7 Normal albumin, serum 4.7 g/dL [facility] 3.6-5.1 Normal protein, total, serum 6.6 g/dL [facility] 6.1-8.1 Normal cholesterol, non-HDL, total 80 MG/DL (CALC) [facility] <130 Normal cholesterol/HDL ratio, serum, percent 2.2 (calc) [facility] <5.0 Normal LDL cholesterol, serum 67 MG/DL (CALC) [facility] Normal triglyceride, serum, fasting 58 mg/dL [facility] <150 Normal HDL cholesterol, serum 66 mg/dL [facility] > OR = 50 Normal cholesterol, serum 146 mg/dL [facility] <200 Normal C-reactive protein, by highly sensitive test 1.0 mg/L [facility] <1.0 High LDL Size 223.6 Angstrom [facility] >222.9 LDL particle concentration (lipoprotein panel), risk categories correspond to NCEP categories for LDL cholesterol (on a percentile equivalent basis) 1634 nmol/L [facility] <1138 High cholesterol, non-HDL, total 150 MG/DL (CALC) [facility] <130 High cholesterol/HDL ratio, serum, percent 3.1 calc [facility] <3.6 LDL cholesterol, serum 132 MG/DL (CALC) [facility] <100 High triglyceride, serum, fasting 79 mg/dL [facility] <150 HDL cholesterol, serum 72 mg/dL [facility] >49 cholesterol, serum 222 mg/dL [facility] <200 High cholesterol, non-HDL, total 134 MG/DL (CALC) [facility] <130 High cholesterol/HDL ratio, serum, percent 3.0 (calc) [facility] <5.0 Normal LDL cholesterol, serum 115 MG/DL (CALC) [facility] High triglyceride, serum, fasting 89 mg/dL [facility] <150 Normal HDL cholesterol, serum 66 mg/dL [facility] > OR = 50 Normal cholesterol, serum 200 mg/dL [facility] <200 High cholesterol, non-HDL, total 135 MG/DL (CALC) [facility] <130 High cholesterol/HDL ratio, serum, percent 2.7 (calc) [facility] <5.0 Normal LDL cholesterol, serum 119 MG/DL (CALC) [facility] High triglyceride, serum, fasting 72 mg/dL [facility] <150 Normal HDL cholesterol, serum 78 mg/dL [facility] >50 Normal cholesterol, serum 213 mg/dL [facility] <200 High cholesterol, non-HDL, total 114 MG/DL (CALC) [facility] <130 Normal cholesterol/HDL ratio, serum, percent 2.4 (calc) [facility] <5.0 Normal LDL cholesterol, serum 100 MG/DL (CALC) [facility] High triglyceride, serum, fasting 46 mg/dL [facility] <150 Normal HDL cholesterol, serum 83 mg/dL [facility] >50 Normal cholesterol, serum 197 mg/dL [facility] <200 Normal HISTORY OF MEDICATION USE Medication Status Instructions Dates Provider Indications Com ments ezetimibe 10 mg tablet active TAKE 1 TABLET BY MOUTH EVERY DAY Freddy atorvastatin 40 mg tablet active TAKE 1 TABLET BY MOUTH EVERY DAY atorvastatin 40 mg tablet completed Take 1 tablet by mouth once a day - Freddy ezetimibe 10 mg tablet completed Take 1 tablet by mouth once a day - CHOLES OFF TABLET completed Take 1 tablet by mouth once a day - Mario Boston MD flaxseed oil 1,000 mg capsule completed once a day - Mario Boston MD Fish Oil 120-180 mg capsule completed 2 capsule once a day - Mario Boston MD VITAMIN B-12 1000 MCG ORAL TABLET completed One tablet daily - Loren Raya MULTIVITAMINS CAPS active 1 tablet once a day Bienvenido Engel coenzyme Q10-vit E-vit E mixed 100-20-15 mg capsule completed capsule by mouth once a day - Mario Boston MD CRANBERRY CAPSULE completed 2 capsule once a day - Mario Boston MD GARLIC TABLET completed 2 capsule once a day - Mario Boston MD SILYMARIN CAPS active 2 capsule once a day Bienvenido Engel ASPIRIN 81 MG ORAL TABLET completed ONE TAB. 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 R egular Exercise - yes Smoking History: P swati has never smoked. 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 R egular Exercise - yes Smoking History: P swati has never smoked. 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 R egular Exercise - yes Smoking History: P atient has never smoked. 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 R egular Exercise - yes Smoking History: P atient has never smoked. 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 R egular Exercise - yes Smoking History: P atient has never smoked. 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 R egular Exercise - yes Smoking History: P atient has never smoked. 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 R egular Exercise - yes Smoking History: P atient has never smoked. Dirk Morocho MD social history reviewed E&M revi ewed - no changes required Dirk Morocho MD Underweight yes Dirk Morocho MD smoking status Never smoker Jennifer Snyder Underweight yes Mario Boston MD social history reviewed E&M revi ewed - no changes required Mario Boston MD alcohol use no Leah Alvarengaby smoking status Never smoker Leah Jovanni Underweight no Mario Boston MD social history reviewed E&M revi ewed - no changes required Mario Boston MD alcohol use no Bonita Russ smoking status Never smoker Bonita Russ Underweight yes Mario Boston MD social history reviewed E&M revi ewed - no changes required Mario Boston MD number of grandchildren Mario Dnaiels smoking status Never smoker Fatmata do social history reviewed E&M revi ewed - no changes required Mario Boston MD alcohol use no Loren golden smoking status Never smoker Loren velez social history reviewed E&M revi ewed - no changes required Mario Boston MD smoking status Never smoker Elda brock smoking status Never smoker Elda brock social history reviewed E&M revi ewed - no changes required Raghu Oglesby MD social history E&M 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 R egular Exercise - yes Smoking History: P swati has never smoked. Raghu Oglesby MD smoking status Never smoker Raghu Oglesby MD FUNCTIONAL STATUS Date Observation Value Provider HRA, CV Assess/Plan, Angina (inactive) Management Plan continue current therapy Mario Boston MD HRA, CV Assess/Plan, Angina (inactive) Management Plan continue current therapy Mario Boston MD HRA, CV Assess/Plan, Angina (inactive) Management Plan continue current therapy Mario Boston MD HRA, CV Assess/Plan, Angina (inactive) Management Plan continue current therapy Mario Boston MD HRA, CV Assess/Plan, Angina (inactive) Management Plan continue current therapy Mario Boston MD periodic limb movement index absent (0) Elda Kelley FAMILY HISTORY Family Member Condition Full Brother Family History of Co ronary Artery Disease: Full Brother Family History of Hy pertension: Mother Family History of Co ronary Artery Disease: Mother Family History of Hy pertension: INSURANCE PROVIDERS Payer name Policy type / Coverage type Brillion red libertarian [id number] PPO Other [id number]VANCE [employer]IVES Name Date DISCUSSED - NO DECISION MADE TREATMENT PLAN Date Name Performer [id number],BMario ra, [place] [id number],S, H er updated medication list for this problem includes: Atorvastatin 40 Mg Tablet (Atorvastatin) ..... Take 1 tablet by mouth once a day Ezetimibe 10 Mg Tablet (Ezetimibe) ..... Take 1 tablet by mouth once a day Mario Boston MD [id number],Mario Weaver ra, [place] [id number],B, H er updated medication list for this problem includes: Atorvastatin 40 Mg Tablet (Atorvastatin) ..... Take 1 tablet by mouth once a day Ezetimibe 10 Mg Tablet (Ezetimibe) ..... Take 1 tablet by mouth once a day Mario Boston MD [id number],BMario ra, MD [id number],SMario ra, MD [id number],SMario ra, MD [id number],SMario ra, MD [id number],SMario ra, MD [id number],SMario ra, MD [id number],B, H er updated medication list for this problem includes: Atorvastatin 40 Mg Tablet (Atorvastatin) ..... Take 1 tablet by mouth once a day Ezetimibe 10 Mg Tablet (Ezetimibe) ..... Take 1 tablet by mouth once a day Mario Boston MD [id number],S, Mario Morel ra, MD [id number],S, Mario Morel ra, MD [id number],S, Mario Morel ra, MD [id number],S, Mario Morel ra, MD [id number],N, Mario Morel ra, MD [id number],N, Mario Morel ra, MD [id number],W, H er updated medication list for this problem includes: Atorvastatin 40 Mg Tablet (Atorvastatin) ..... Take 1 tablet by mouth once a day Ezetimibe 10 Mg Tablet (Ezetimibe) ..... Take 1 tablet by mouth once a day Mario Boston MD [id number],N, Mario Morel ra, MD [id number],S, Mario Morel ra, MD [id number],S, Mario Morel ra, MD [id number],S, Mario Morel ra, MD [id number],W, Mario Morel ra, MD [id number],S, Mario Morel ra, MD [id number],S, Mario Morel ra, MD [id number],S, Mario Morel ra, MD [id number],S, Mario Morel ra, MD Sakina T[facility]o [facility]: H er updated medication list for this problem includes: Ezetimibe 10 Mg Tablet (Ezetimibe) ..... Take 1 tablet by mouth every day Atorvastatin 40 Mg Tablet (Atorvastatin) ..... Take 1 tablet by mouth every day Mario Boston MD Cardiology Mario Tadeo Cardiology Mario Tadeo Cardiology:This visi t has been a part of the consistent, comprehensive, and ongoing management of the chronic medical condition(s) listed above for the patient. Her updated medication list for this problem includes: Ezetimibe 10 Mg Tablet (Ezetimibe) ..... Take 1 tablet by mouth every day Atorvastatin 40 Mg Tablet (Atorvastatin) ..... Take 1 tablet by mouth every day Mario Boston MD Cardiology:This visi t has been a part of the consistent, comprehensive, and ongoing management of the chronic medical condition(s) listed above for the patient. Mario Boston MD Cardiology Mario Tadeo [facility]iology: H er updated medication list for this problem includes: Atorvastatin 40 Mg Tablet (Atorvastatin) ..... Take 1 tablet by mouth once a day Ezetimibe 10 Mg Tablet (Ezetimibe) ..... Take 1 tablet by mouth once a day Mario Boston MD Cardiology Mario Tadeo [facility]iology Mario Tadeo Cardiology Mario Tadeo [facility]iology Mario Tadeo Cardiology Mario Tadeo Cardiology Mario Tadeo Cardiology Mario Tadeo Cardiology: H er updated medication list for this problem includes: Atorvastatin 40 Mg Tablet (Atorvastatin) ..... Take 1 tablet by mouth once a day Ezetimibe 10 Mg Tablet (Ezetimibe) ..... Take 1 tablet by mouth once a day Mario Bosotn MD Cardiology Mario Tadeo [facility] Mario Tadeo [facility]iology Mario Tadeo Cardiology: H er updated medication list for this problem includes: Atorvastatin 40 Mg Tablet (Atorvastatin) ..... Take 1 tablet by mouth once a day Ezetimibe 10 Mg Tablet (Ezetimibe) ..... Take 1 tablet by mouth once a day Mario Boston MD Cardiology Mario Tadeo [facility]iology: H er updated medication list for this problem includes: Atorvastatin 40 Mg Tablet (Atorvastatin) ..... Take 1 tablet by mouth once a day Ezetimibe 10 Mg Tablet (Ezetimibe) ..... Take 1 tablet by mouth once a day Mario Boston MD Cardiology Mario Tadeo [facility] Mario Tadeo [facility] Mario Tadeo [facility] Mario Tadeo [facility] Mario Tadeo Cardiology Mario Tadeo Cardiology: H er updated medication list for this problem includes: Atorvastatin 40 Mg Tablet (Atorvastatin) ..... Take 1 tablet by mouth once a day Ezetimibe 10 Mg Tablet (Ezetimibe) ..... Take 1 tablet by mouth once a day Mario Boston MD Cardiology Mario Tadeo Cardiology Mario Tadeo Cardiology Mario Tadeo Cardiology Mario Tadeo Cardiology Mario Tadeo Cardiology Mario Tadeo Cardiology: H er updated medication list for this problem includes: Atorvastatin 40 Mg Tablet (Atorvastatin) ..... Take 1 tablet by mouth once a day Ezetimibe 10 Mg Tablet (Ezetimibe) ..... Take 1 tablet by mouth once a day Mario Boston MD Cardiology Mario Tadeo Cardiology Mario Tadeo Cardiology aMrio Tadeo Cardiology Mario Tadeo Cardiology Mario Tadeo Cardiology Mario Tadeo Cardiology Mario Tadeo Cardiology Mario Tadeo Cardiology Mario Tadeo Cardiology Dirk Morocho MD Cardiology Mario Tadeo Cardiology: O ccasional. Will continue to monitor. Mario Bostno MD Cardiology:BP 115/76 today. Will continue to monitor. Mario Boston MD Cardiology: H er updated medication list for this problem includes: Aspirin 81 Mg Tabs (Aspirin) ..... One tab. daily Mario Boston MD Cardiology: H er updated medication list for this problem includes: Aspirin 81 Mg Tabs (Aspirin) ..... One tab. daily Mario Boston MD Cardiology Mario Tadeo Cardiology: H er updated medication list for this problem includes: Aspirin 81 Mg Tabs (Aspirin) ..... One tab. daily Mario Boston MD Cardiology: H er updated medication list for this problem includes: Aspirin 81 Mg Tabs (Aspirin) ..... One tab. daily s eems to be associated with menstrual cycle Mario Boston MD Cardiology Mario Tadeo Cardiology Follow up Mario baird MD Cardiology Follow up :PVC's on 30 days event, nl lvsf, improved with avoidance of caffeine Mario Boston MD Cardiology Follow up :Amb BP con trolld BP, no htn Mario Boston MD Cardiology:check amb BP monitori haven Boston MD Cardiology Mario Tadeo Cardiology: H er updated medication list for this problem includes: Aspirin 81 Mg Tabs (Aspirin) ..... One tab. daily Mario Boston MD Cardiology: H er updated medication list for this problem includes: Aspirin 81 Mg Tabs (Aspirin) ..... One tab. daily c heck tele and stress echo Mario Boston MD Cardiology:Will do holter monito r, stress test, and echo Raghu Oglesby MD Cardiology:Will do echo Raguh chandra MD Date Name LIPID PANEL HEPATIC FUNCTION [place] TSH, free T4, total T3 HEPATIC FUNCTION [place] HEPATIC FUNCTION [place] LIPID PANEL LIPID PANEL [facility] Advanced Li pid Panel with Inflammation ([facility]) CT, Coronary Calcium Score LIPID PANEL LIPID PANEL LIPID PANEL LIPID PANEL Mobile Cardiac Tele STR - Echo Holter Monitor 24 Hr STR - Routine Complete Echo HISTORY OF PROCEDURES Procedure Date Procedure Name Provider Procedure Notes S tatus Complex e/m visit add on Mario Boston MD completed EKG Mario Boston MD complet ed CT- Coronary CA score Mario Boston MD completed EKG Mario Boston MD complet ed EKG Mario Boston MD complet ed EKG Dirk Morocho MD completed EKG Mario Boston MD complet ed EKG Mario Boston MD complet ed SNOMED-CT: [id number] Current Medications Documented Mario Boston MD completed SNOMED-CT: [id number] Current Medications Documented Mario Boston MD completed EKG Mario Boston MD complet ed SNOMED-CT: [id number] Current Medications Documented Mario Boston MD completed Event Monitor Raghu Oglesby MD comple diamond Ambulatory BP Mario Boston MD comp leted EKG Mario Boston MD complet ed SNOMED-CT: [id number] Current Medications Documented Mario Boston MD completed Stress EKG Dirk Morocho MD completed Holter, 24 or 48 Raghu Oglesby MD com pleted EKG Raghu Oglesby MD completed
--- OUTSIDE RECORDS SUMMARY | 2024-12-17 04:01 | XMS_ITS | Encounter Summary ---
Author Organization [facility] Address [address] [place] [address] Phone Care Team Providers Care Operating Room Technician Name Role Phone Panda Myrick MD Primary Care Provider Reason for Visit * Neurology (Routine) - Closed Specialty Diagnoses / Procedures Referred By Contac t Referred To Contact Diagnoses Left lumbar radiculopathy Procedures EMG/NCV - Escobar Boone MD [address] [facility] [address] [place] [address] Phone: tel: fax: [facility] (All Locations) Referral ID Status Reason Start Date Expiration Date Visits Re quested Visits Authorized [id number] Closed 03/21/2023 04/19/2024 1 1 Encounter Details Date Type Department Care Team (Late st Contact Info) Description 04/15/2023 8:00 AM CDT Diagnostic [facility] Orthopaedic Surgery [address] [facility] 2nd [address] [place] [id number] Escobar Boone MD [address] [facility] [address] [place] [address] Left lumbar radiculopathy Social History Tobacco Use Types Packs/Day Years Used Date Smoking Tobacco: Never Alcohol Use Standard Drinks/Week Comments Yes 0 (1 standard drink = 0.6 oz pur e alcohol) Comments Unknown Sex and Gender Information Value Date Recorded Sex Assigned at Not on file Legal Sex Female 2:33 AM ACCOUNTS RECEIVABLE COLLECTOR Gender Identity Female 02/28/2021 6:37 AM CDT Sexual Orientation Straight 02/28/2021 6: 37 AM CDT documented as of this encounter Progress Notes * Escobar Boone MD - 04/15/2023 8:00 AM CDT Electrodiagnostic evaluation was performed today. Please see full report for details: linked under Media and/or Procedure tabs for this study. Under Media and/or Procedure tab, open this study, click on Neurology Scan to view full report. Impression: Normal findings. No significant electrodiagnostic evidence of lumbar radiculopathy or peripheral neuropathy affecting the left lower extremity. documented in this encounter Plan of Treatment Not on file documented as of this encounter Procedures Procedure Name Priority Date/Time Associated Diagnosis Comments EMG/NCV Routine 04/15/2023 7:50 AM CDT Left lumbar radiculopathy documented in this encounter Results * EMG/NCV - (04/15/2023 7:50 AM CDT) Anatomical Region Laterality Modality Other Escobar Boone MD NEUROLOGY ORDERABLES Final Result documented in this encounter Visit Diagnoses Diagnosis Left lumbar radiculopathy Thoracic or lumbosacral neuritis or radiculitis, unspecified documented in this encounter Care Teams Operating Room Technician Relationship Specialty Start Date End Date Panda Myrick MD [address] [facility] [address] [place] [address] PCP - General Family Medicine 04/16/19 documented as of this encounter
--- OUTSIDE RECORDS SUMMARY | 2024-12-17 04:01 | XMS_ITS | Encounter Summary ---
Author Organization [facility] Address [address] [place] [address] Care Team Providers Care Appeals Nurse Name Role Phone Panda Myrick MD Primary Care Provider Reason for Referral * Diagnostic Imaging (Routine) - Closed Specialty Diagnoses / Procedures Referred By Romaine aguilar Referred To Contact Radiology Diagnoses Chronic pain of left knee Procedures MRI Knee Left WO Contrast Adán Garza MD Phone: tel: fax: [address] [phone] Referral ID Status Reason Start Date Expiration Date Visits Re quested Visits Authorized [id number] Closed 07/29/2019 10/27/2019 1 1 TICE OR STUDENT TEACHER Reason for Visit * Diagnostic Imaging (Routine) - Closed Specialty Diagnoses / Procedures Referred By Romaine aguilar Referred To Contact Radiology Diagnoses Chronic pain of left knee Procedures MRI Knee Left WO Contrast Adán Garza MD Phone: tel: fax: [address] [phone] Referral ID Status Reason Start Date Expiration Date Visits Re quested Visits Authorized [id number] Closed 07/29/2019 10/27/2019 1 1 Encounter Details Date Type Department Care Team (Latest Contact Info) Description 10/12/2019 12:17 PM PRACTICE OR STUDENT TEACHER - 10/12/2019 11:59 PM PRACTICE OR STUDENT TEACHER Hospital Encounter [facility] [address] [place] [address] Adán Garza MD [address] [place] [address] Chronic pain of left knee Discharge Disposition: Discharge to home or self care Social History Tobacco Use Types Packs/Day Years Used Date Smoking Tobacco: Never Alcohol Use Standard Drinks/Week Comments Yes 0 (1 standard drink = 0.6 oz pur e alcohol) Comments Unknown Sex and Gender Information Value Date Recorded Sex Assigned at Not on file Legal Sex Female 2:33 AM PRACTICE OR STUDENT TEACHER Gender Identity Female 02/28/2021 6:37 AM CDT Sexual Orientation Straight 02/28/2021 6: 37 AM CDT documented as of this encounter Medications at Time of Discharge flaxseed oil oil garlic 1 mg capsule Take by mouth omega-3 fatty acids-fish oil 300-1,000 mg capsule Take 2 g by mouth daily turmeric, bulk, 95 % powder loratadine (CLARITIN) 10 mg tablet Claritin 03/21/2023 loratadine (CLARITIN) 10 mg tablet Claritin 03/21/2023 documented as of this encounter Discharge Disposition Disposition Code Departure Means Destination Discharge to home or self care documented in this encounter Plan of Treatment Not on file documented as of this encounter Procedures Procedure Name Priority Date/Time Associated Diagnosis Comments MRI KNEE LEFT WO CONTRAST Schedule Routine, Read Routine (OP Routine) 10/12/2019 1:18 PM PRACTICE OR STUDENT TEACHER Chronic pain of left knee documented in this encounter Results * MRI Knee Left WO Contrast (10/12/2019 1:18 PM PRACTICE OR STUDENT TEACHER) Anatomical Region Laterality Modality Lower Extremities Left Magnetic Reson ance 10/12/2019 2:05 PM PRACTICE OR STUDENT TEACHER Impressions 10/12/2019 2:07 PM PRACTICE OR STUDENT TEACHER 1. ??[id number] subchondral insufficiency fracture of the posterior and central weightbearing left lateral femoral condyle. 2. ??Mild left lateral and patellofemoral bicompartmental knee chondrosis. 3. ??Small left knee joint effusion. 4. ??Mild edema within the lateral head of left gastrocnemius and popliteus, which may represent delayed onset muscle soreness or less likely low-grade strain. Dictated by: Zelalem Doe M.D. The radiology attending physician has personally reviewed this study, and had reviewed and/or edited this written report and agrees with it. Electronically signed by: Danish Tavera M.D. Narrative 10/12/2019 2:07 PM PRACTICE OR STUDENT TEACHER EXAMINATION: 1. MRI left knee without contrast HISTORY: ??Left knee insufficiency fracture. FINDINGS: Comparison is made to left knee radiographs from 07/06/2019. MR examination of the left knee was performed with an extremity coil. No intravenous or intra-articular contrast was administered for this examination. Sagittal fast spin-echo images, coronal short TR/TE and fast spin-echo images, and transverse fast spin-echo images were obtained. In the medial compartment, the meniscus is intact. There is no focal chondrosis or subchondral edema. In the lateral compartment, the meniscus is intact. There is partial thickness chondrosis of the posterior weightbearing lateral femoral condyle with subchondral cystic change. ??A subchondral insufficiency fracture is present in the posterior and central weightbearing lateral femoral condyle with associated marrow edema. ?? In the patellofemoral compartment, there is partial thickness chondrosis involving the lateral patellar facet. ?? The cruciate and collateral ligaments are intact. The extensor mechanism is normal. There is a small knee joint effusion. No loose bodies are identified. Mild edema is present in the lateral head of the gastrocnemius and popliteus. Procedure Note Danish Tavera MD - 10/12/2019 EXAMINATION: 1. MRI left knee without contrast HISTORY: Left knee insufficiency fracture. FINDINGS: Comparison is made to left knee radiographs from 07/06/2019. MR examination of the left knee was performed with an extremity coil. No intravenous or intra-articular contrast was administered for this examination. Sagittal fast spin-echo images, coronal short TR/TE and fast spin-echo images, and transverse fast spin-echo images were obtained. In the medial compartment, the meniscus is intact. There is no focal chondrosis or subchondral edema. In the lateral compartment, the meniscus is intact. There is partial thickness chondrosis of the posterior weightbearing lateral femoral condyle with subchondral cystic change. A subchondral insufficiency fracture is present in the posterior and central weightbearing lateral femoral condyle with associated marrow edema. In the patellofemoral compartment, there is partial thickness chondrosis involving the lateral patellar facet. The cruciate and collateral ligaments are intact. The extensor mechanism is normal. There is a small knee joint effusion. No loose bodies are identified. Mild edema is present in the lateral head of the gastrocnemius and popliteus. IMPRESSION: 1. [id number]-[id number] subchondral insufficiency fracture of the posterior and central weightbearing left lateral femoral condyle. 2. Mild left lateral and patellofemoral bicompartmental knee chondrosis. 3. Small left knee joint effusion. 4. Mild edema within the lateral head of left gastrocnemius and popliteus, which may represent delayed onset muscle soreness or less likely low-grade strain. Dictated by: Zelalem Doe M.D. The radiology attending physician has personally reviewed this study, and had reviewed and/or edited this written report and agrees with it. Electronically signed by: Danish Tavera M.D. Adán Garza MD IM MRI PROCEDURES Final Result documented in this encounter Visit Diagnoses Diagnosis Chronic pain of left knee documented in this encounter Care Teams Appeals Nurse Relationship Specialty Start Date End Date Panda Myrick MD [address] [address] PCP - General Family Medicine 04/16/19 documented as of this encounter
--- OUTSIDE RECORDS SUMMARY | 2024-12-17 04:01 | XMS_ITS | Encounter Summary ---
Author Organization [facility] Facility Care Team Providers Care Pecan Gatherer Name Role Phone Unavailable Primary Care Provider Unavailabl e Encounter Details Date Type Department Care Team (Late st Contact Info) Description 03/04/2009 9:14 AM CDT - 03/04/2009 4:00 PM CDT Hospital Encounter [facility] Yousuf Chavez Contracture of hand joint; Other disorder of synovium, tendon or bursa; Mitral valve disorder; Carpal tunnel syndrome Social History Tobacco Use Types Packs/Day Years Used Date Smoking Tobacco: Never Assessed Comments Unknown Sex and Gender Information Value Date Recorded Sex Assigned at Not on file Legal Sex Female 2:33 AM SUPPLY CHAIN PLANNER Gender Identity Female 02/28/2021 6:37 AM CDT Sexual Orientation Straight 02/28/2021 6: 37 AM CDT documented as of this encounter Plan of Treatment Not on file documented as of this encounter Visit Diagnoses Diagnosis Contracture of hand joint Other disorder of synovium, tendon or bursa Mitral valve disorder Mitral valve disorders Carpal tunnel syndrome documented in this encounter
--- OUTSIDE RECORDS SUMMARY | 2024-12-17 04:01 | XMS_ITS | Encounter Summary ---
Author Organization [facility] Facility Care Team Providers Care Industrial Yard Brake Coupler Name Role Phone Unavailable Primary Care Provider Unavailabl e Encounter Details Date Type Department Care Team (Late st Contact Info) Description 03/05/2009 8:21 AM CDT - 03/05/2009 11:59 PM CDT Hospital Encounter [facility] Other specified pre-operative examination Social History Tobacco Use Types Packs/Day Years Used Date Smoking Tobacco: Never Assessed Comments Unknown Sex and Gender Information Value Date Recorded Sex Assigned at Not on file Legal Sex Female 2:33 AM LEAD ESTHETICIAN Gender Identity Female 02/28/2021 6:37 AM CDT Sexual Orientation Straight 02/28/2021 6: 37 AM CDT documented as of this encounter Plan of Treatment Not on file documented as of this encounter Visit Diagnoses Diagnosis Other specified pre-operative examination documented in this encounter
--- OUTSIDE RECORDS SUMMARY | 2024-12-17 04:01 | XMS_ITS | Encounter Summary ---
Author Organization [facility] Healthcare Address [address] [place] [address] Care Team Providers Care Pharmacy Analyst Name Role Phone Panda Myrick MD Primary Care Provider Reason for Referral * Diagnostic Imaging (Routine) - Closed Specialty Diagnoses / Procedures Referred By Romaine aguilar Referred To Contact Diagnoses Chronic pain of left knee Procedures XR Knee Left 3 Views Adán Garza MD Phone: tel: fax: [address] [phone] Referral ID Status Reason Start Date Expiration Date Visits Re quested Visits Authorized [id number] Closed 06/23/2019 01/01/2021 1 1 Reason for Visit * Diagnostic Imaging (Routine) - Closed Specialty Diagnoses / Procedures Referred By Romaine aguilar Referred To Contact Diagnoses Chronic pain of left knee Procedures XR Knee Left 3 Views Adán Garza MD Phone: tel: fax: [address] [phone] Referral ID Status Reason Start Date Expiration Date Visits Re quested Visits Authorized [id number] Closed 06/23/2019 01/01/2021 1 1 Encounter Details Date Type Department Care Team (Latest Contact Info) Description 07/06/2019 3:17 PM CDT - 07/06/2019 11:59 PM CDT Hospital Encounter [facility]) [address] [place] [address] Adán Garza MD [address] [place] [address] Chronic pain of left knee Discharge Disposition: Discharge to home or self care Social History Tobacco Use Types Packs/Day Years Used Date Smoking Tobacco: Never Comments Unknown Sex and Gender Information Value Date Recorded Sex Assigned at Not on file Legal Sex Female 2:33 AM MATERIALS PLANNER Gender Identity Female 02/28/2021 6:37 AM [...] Procedure Name Priority Date/Time Associated Diagnosis Comments XR KNEE LEFT 3 VIEWS Schedule Routine, Read Routine (OP Routine) 07/06/2019 3:25 PM CDT Chronic pain of left knee documented in this encounter Results * XR Knee Left 3 Views (07/06/2019 3:25 PM CDT) Anatomical Region Laterality Modality Lower Extremities, Knee Left Computed Radiography 07/06/2019 3:40 PM CDT Impressions 07/06/2019 3:41 PM CDT 1. ??Small left knee joint effusion. Dictated by: Alix Chu M.D. The radiology attending physician has personally reviewed this study, and had reviewed and/or edited this written report and agrees with it. Electronically signed by: Mihir Grewal M.D. Narrative 07/06/2019 3:41 PM CDT EXAMINATION: 1. ??Left knee 3 views HISTORY: Left knee pain FINDINGS: 3 view examination of the left knee submitted for interpretation with no prior studies available for comparison. There is no acute fracture. ??Joint spaces are preserved. ??Alignment is normal. ??A small left knee joint effusion is present. Procedure Note Mihir Grewal MD - 07/06/2019 EXAMINATION: 1. Left knee 3 views HISTORY: Left knee pain FINDINGS: 3 view examination of the left knee submitted for interpretation with no prior studies available for comparison. There is no acute fracture. Joint spaces are preserved. Alignment is normal. A small left knee joint effusion is present. IMPRESSION: 1. Small left knee joint effusion. Dictated by: Alix Chu M.D. The radiology attending physician has personally reviewed this study, and had reviewed and/or edited this written report and agrees with it. Electronically signed by: Mihir Grewal M.D. Adán Garza MD IMG XR PROCEDURES Final R esult documented in this encounter Visit Diagnoses Diagnosis Chronic pain of left knee documented in this encounter Care Teams Pharmacy Analyst Relationship Specialty Start Date End Date Panda Myrick MD [address] [address] PCP - General Family Medicine 04/16/19 documented as of this encounter
--- OUTSIDE RECORDS SUMMARY | 2024-12-17 04:01 | XMS_ITS | Encounter Summary ---
Author Organization [facility] Facility Care Team Providers Care Client Application Support Engineer Name Role Phone Unavailable Primary Care Provider Unavailabl e Encounter Details Date Type Department Care Team (Latest Contact Info) Description 11/11/2008 11:42 AM MACHINIST HELPER - 11/11/2008 4:00 PM MACHINIST HELPER Hospital Encounter [facility] Yousuf Chavez Nontraumatic rupture of flexor tendons of hand and wrist Social History Tobacco Use Types Packs/Day Years Used Date Smoking Tobacco: Never Assessed Comments Unknown Sex and Gender Information Value Date Recorded Sex Assigned at Not on file Legal Sex Female 2:33 AM MACHINIST HELPER Gender Identity Female 02/28/2021 6:37 AM CDT Sexual Orientation Straight 02/28/2021 6: 37 AM CDT documented as of this encounter Plan of Treatment Not on file documented as of this encounter Visit Diagnoses Diagnosis Nontraumatic rupture of flexor tendons of hand and wrist documented in this encounter
--- OUTSIDE RECORDS SUMMARY | 2024-12-17 04:01 | XMS_ITS | Encounter Summary ---
Author Organization [facility] Address [address] [place] [address] Phone Care Team Providers Care Director Blood Bank Name Role Phone Panda Myrick MD Primary Care Provider Reason for Visit * Reason Onset Date Comments Scheduling Appointments 02/02/2021 Encounter Details Date Type Department Care Team (Late st Contact Info) Description 02/02/2021 Telephone [facility] Dermatology [address] [place] [address] [address] [place] [address] Juan Carlos Hilario MD [address] [place] [address] [address] [place], [place] [id number] Scheduling Appointments Social History Tobacco Use Types Packs/Day Years Used Date Smoking Tobacco: Never Alcohol Use Standard Drinks/Week Comments Yes 0 (1 standard drink = 0.6 oz pur e alcohol) Comments Unknown Sex and Gender Information Value Date Recorded Sex Assigned at Not on file Legal Sex Female 2:33 AM BIG DATA ANALYTICS LEAD Gender Identity Female 02/28/2021 6:37 AM CDT Sexual Orientation Straight 02/28/2021 6: 37 AM CDT documented as of this encounter Miscellaneous Notes * Telephone Encounter - Jackie Hurtado RMA - 02/03/2021 7:41 AM CST Rescheduled appointment DATA ANALYTICS LEAD * Telephone Encounter - Delisa Dalal MA - 02/02/2021 12:23 PM BIG DATA ANALYTICS LEAD Patient is calling to reschedule her patch testing that was schedule for 02/23/21. DATA ANALYTICS LEAD documented in this encounter Plan of Treatment Not on file documented as of this encounter Visit Diagnoses Not on filedocumented in this encounter Care Teams Director Blood Bank Relationship Specialty Start Date End Date Panda Myrick MD [address] [facility] [address] [place] [address] PCP - General Family Medicine 04/16/19 documented as of this encounter
--- OUTSIDE RECORDS SUMMARY | 2024-12-17 04:01 | XMS_ITS | Encounter Summary ---
Author Organization [facility] Facility Care Team Providers Care Pit Boss Name Role Phone Unavailable Primary Care Provider Unavailabl e Encounter Details Date Type Department Care Team (Late st Contact Info) Description 10/20/2008 3:27 PM ADJUNCT INSTRUCTOR IN ECONOMICS - 10/20/2008 4:00 PM ADJUNCT INSTRUCTOR IN ECONOMICS Hospital Encounter [facility] Social History Tobacco Use Types Packs/Day Years Used Date Smoking Tobacco: Never Assessed Comments Unknown Sex and Gender Information Value Date Recorded Sex Assigned at Not on file Legal Sex Female 2:33 AM ADJUNCT INSTRUCTOR IN ECONOMICS Gender Identity Female 02/28/2021 6:37 AM CDT Sexual Orientation Straight 02/28/2021 6: 37 AM CDT documented as of this encounter Plan of Treatment Not on file documented as of this encounter Visit Diagnoses Not on filedocumented in this encounter
--- OUTSIDE RECORDS SUMMARY | 2024-12-17 04:01 | XMS_ITS | Encounter Summary ---
Author Organization [facility] Address [address] [place] [address] Phone Care Team Providers Care Reimbursement Consultant Name Role Phone Panda Myrick MD Primary Care Provider Reason for Referral * Diagnostic Imaging (Routine) - Closed Specialty Diagnoses / Procedures Referred By Contac t Referred To Contact Diagnoses Chronic pain of left knee Procedures XR Knee Left 3 Views Adán Garza MD Phone: tel: fax: [address] [address] Referral ID Status Reason Start Date Expiration Date Visits Re quested Visits Authorized [id number] Closed 06/23/2019 01/01/2021 1 1 Reason for Visit * Reason Comments Pain Encounter Details Date Type Department Care Team (Late st Contact Info) Description 07/06/2019 3:10 PM CDT Office Visit [facility] Orthopaedic Surgery [facility] Medicine 6th [place] [address] [place] [address] Adán Garza MD [address] [place] [address] Chronic pain of left knee (Primary Dx) Social History Tobacco Use Types Packs/Day Years Used Date Smoking Tobacco: Never Comments Unknown Sex and Gender Information Value Date Recorded Sex Assigned at Not on file 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 Gender Identity Female 02/28/2021 6:37 AM CDT Sexual Orientation Straight 02/28/2021 6: 37 AM CDT documented as of this encounter Last Filed Vital Signs Vital Sign Reading Time Taken Comments Blood Pressure - - Pulse - - Temperature - - Respiratory Rate - - Oxygen Saturation - - Inhaled Oxygen Concentration - - Weight 54.9 kg (121 lb) 07/06/2019 4:04 PM CDT Height 170.2 cm (5' 7 ) 07/06/2019 4:04 PM CDT Body Mass Index 18.95 07/06/2019 4:04 PM CDT documented in this encounter Progress Notes * Adán Garza MD - 07/06/2019 12:00 AM CDT NEW PATIENT VISIT HISTORY OF PRESENT ILLNESS: The patient comes in today for evaluation of her left knee. The patient states that about 5 years ago she tripped over a dog, twisted her left knee. Ever since then the knee has never been the same. She has had difficulty when she does long walking. She feels popping and catching with certain positional activities. She finds that this pain is just a nuisance because it interferes with her everyday activities, and it seems to be getting progressively a little bit worse to the point where it is now bothering her any time she walks, goes up and down stairs. Even lifting her foot off the ground starts to cause it, and it is unpredictable. It can go from mild to moderate, and it is a sharp to aching pain that radiates all the way around sometimes the back of the knee. PAST MEDICAL HISTORY: Significant for arthritis, heart murmur, heart valve problem. PAST SURGICAL HISTORY: Includes ovarian tumor removal in 1997, hand surgery in 2007. INITIAL REVIEW OF MEDICATIONS: 1. Claritin. 2. Garlic. 3. Turmeric. 4. Fish oil. 5. Flaxseed oil. DRUG ALLERGIES: Penicillin that caused a rash. Erythromycin that causes her throat to close. Tetracyclines, rash. Septra, rash. METAL ALLERGIES: None. 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 She is . She lives with her spouse. Nonsmoker. Social alcohol use. Drug use never. FAMILY HISTORY: Significant for heart disease, arthritis, high blood pressure, alcoholism, and blood clots. REVIEW OF SYSTEMS: Ten systems reviewed. No significant findings. PHYSICAL EXAMINATION: General: The patient is alert and oriented x3. In no acute distress. Nonlabored breathing. She is 67 inches tall, 121 pounds. BMI of 19. Musculoskeletal: The patient's knee pain is along the medial joint line, worse with the Markus testing and deep flexion. Skin status is normal. Knee range of motion is 0 to 130 degrees. Stable ligamentously. Overall neutral alignment. Mild effusion. No significant limp. Pulses are intact. No dependent edema distally. Neurologically intact. Quadriceps muscles good. Lesli's test and anterior drawer tests were negative. REVIEW OF X-RAY/STUDIES: X-rays show a very benign-looking knee. No signs of any advanced degenerative changes. No signs of any subluxation. The patient's ACL seems to be intact. TREATMENT PLAN: At this time, I am concerned the patient's history and her physical exam and the findings are consistent with likely a meniscus tear given the fact she does not have advanced arthritis. She has pain that is reproduced with pivoting and twisting type activities, deep flexion, and she has positive Markus sign. My recommendation is that we get a left knee MRI to evaluate potential meniscus tear and then plan to move forward from there if that is the case. The patient understands. All questions answered. ELECTRONICALLY SIGNED - 07/12/2019 08:54 PM Adán Garza MD Fire Engine Pump Operator Joint Preservation, Resurfacing and Replacement Service [facility] Orthopedics RN/jq cc: MD PANDA DNUN MD documented in this encounter Plan of Treatment Not on file documented as of this encounter Results * XR Knee Left [...] agrees with it. Electronically signed by: Mihir rGewal M.D. Adán Garza MD IMG XR PROCEDURES Final R esult documented in this encounter Visit Diagnoses Diagnosis Chronic pain of left knee- Primary Chronic pain of left knee documented in this encounter Historical Medications * This list may reflect changes made after this encounter. flaxseed oil oil omega-3 fatty acids-fish oil 300-1,000 mg capsule Take 2 g by mouth daily turmeric, bulk, 95 % powder garlic 1 mg capsule Take by mouth loratadine (CLARITIN) 10 mg tablet Claritin 03/21/2023 added in this encounter Care Teams Reimbursement Consultant Relationship Specialty Start Date End Date Panda Myrick MD [address] [facility] [address] [place] [address] PCP - General Family Medicine 04/16/19 documented as of this encounter
--- OUTSIDE RECORDS SUMMARY | 2024-12-17 04:01 | XMS_ITS | Encounter Summary ---
Author Organization [facility] Address [address] [place] [address] Phone Care Team Providers Care Education Sales Consultant Name Role Phone Panda Myrick MD Primary Care Provider Reason for Referral * Neurology (Routine) - Closed Specialty Diagnoses / Procedures Referred By Contac t Referred To Contact Diagnoses Left lumbar radiculopathy Procedures EMG/NCV - Escobar Boone MD [address] [facility] [address] [place] [address] Phone: tel: fax: [facility] (All Locations) Referral ID Status Reason Start Date Expiration Date Visits Re quested Visits Authorized [id number] Closed 03/21/2023 04/19/2024 1 1 * Diagnostic Imaging (Routine) - Closed Specialty Diagnoses / Procedures Referred By Contac t Referred To Contact Diagnoses Left lumbar radiculopathy Spinal stenosis, lumbar region, without neurogenic claudication Lumbar spondylosis Procedures X-ray lumbar spine complete 4+ views Escobar Boone MD [address] [facility] [address] [place] [address] Phone: tel: fax: [address] [phone] Referral ID Status Reason Start Date Expiration Date Visits Re quested Visits Authorized [id number] Closed 03/21/2023 04/19/2024 1 1 Reason for Visit * Reason Comments Pain Encounter Details Date Type Department Care Team (Late st Contact Info) Description 03/21/2023 8:30 AM CDT Office Visit [facility] Orthopaedic Surgery [address] [facility] [address] [place] [id number] Escobar Boone MD [address] [place] [address] Left lumbar radiculopathy; Mechanical low back pain; Spinal stenosis, lumbar region, without neurogenic claudication; Lumbar spondylosis Social History Tobacco Use Types Packs/Day Years Used Date Smoking Tobacco: Never Alcohol Use Standard Drinks/Week Comments Yes 0 (1 standard drink = 0.6 oz pur e alcohol) Comments Unknown Sex and Gender Information Value Date Recorded Sex Assigned at Not on file 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 I recommend: Lumbar spine x-rays, four views before leaving today, we will provide her results and follow-up viapatient portal. Electrodiagnostic study, left lower extremity: Lumbar radiculopathy. Physical therapy, referral entered, she will access this care close to where she lives. documented in this encounter Progress Notes * Escobar Boone MD - 03/21/2023 8:30 AM CDT NEW PATIENT VISIT CHIEF COMPLAINT: Chief Complaint Patient presents with Lower Back - Pain HISTORY OF PRESENT ILLNESS: Catarina Nuno is a 58 y.o. female who presents to the office today for evaluation of the above-stated chief complaint. Reports history of low back pain radiating to the left lower extremitythat has been episodic over the last several years. She identifies running and genetics as causing symptoms. Symptoms at this point primarily involve left great toe numbness that is episodic, low back pain, no significant radiating symptoms at this point. Pain limits lifting and load-bearing but does not otherwise significantly interfere with activities of daily living. She had been an avid runner but has transitioned to cycling. Pain when it occurs is sharp to aching in nature moderate severity. Symptoms are continuous to some extent. PAST MEDICAL HISTORY: She has a past medical history of Arthritis. PAST SURGICAL HISTORY: She has a past surgical history that includes Hand surgery. INITIAL REVIEW OF MEDICATIONS: She has a current medication list which includes the following prescription(s): calcium citrate-vitamin d3, epinephrine, flaxseed oil, garlic, multivitamin, mupirocin (BACTROBAN), omega-3 fatty acids-fish oil, rosuvastatin (CRESTOR), tacrolimus (PROTOPIC), and turmeric (bulk). DRUG ALLERGIES: She is allergic to sulfamethoxazole-trimethoprim, amoxicillin, balsam hermila, benzalkonium chloride, cetrimonium bromide, cobalt chloride, erythromycin, oleamidopropyl dimethylamine, penicillins, propolis (bee glue), and tetracycline. SOCIAL HISTORY: She reports that she has never smoked. She does not have any smokeless tobacco history on file. Shereports that she does not use drugs. No alcohol history on file. FAMILY HISTORY: She family history includes Heart disease in her mother. PHYSICAL EXAM: On examination today, the patient is awake, alert, and appropriate, in no apparent distress. Breathing is regular and non-labored, hearing is intact to spoken words. Lower extremities are without swelling or edema, and visualized skin is intact. Sensibility light touch is subjectively diminished over the left great toe, otherwise intact throughout the lower extremities. There are no motor deficits affecting lower extremities. She transfers [id number] without difficulty, gait is normal including heel and toe walking. Lumbar range of motion provokes pain mildly with extension. Dural tension signs are absent. Supine hip ranges of motion provoke pain. There is no significant axial spine or bony posterior pelvic tenderness palpation. REVIEW OF X-RAYS/STUDIES: Report of lumbar spine MRI dated June 2019 indicates significant degenerative stenosis at L4-L5, which he is not available for direct review today. Lumbar spine x-rays are ordered and visualized today: Mild to moderate multilevel degenerative changes most significant at L4-L5 where there is grade 1 anterolisthesis of L4 and moderate degenerativechanges at L5-S1 otherwise.. There is no abnormal motion with flexion and extension views. IMPRESSION/DIAGNOSIS: Degenerative lumbar stenosis, mild left L5 radiculopathy, activity dependent mechanical low back pain. TREATMENT PLAN: We discussed things in detail today. I recommend: Lumbar spine x-rays, four views before leaving today, we will provide her results and follow-up viapatient portal. Electrodiagnostic study, left lower extremity: Lumbar radiculopathy. Physical therapy, referral entered, she will access this care close to where she lives. The rational for all recommendations, as well as relevant risks, are discussed with the patient in detail. The patient expresses understanding, comfort and agreement with the plan, all questions are answered. Orders Placed This Encounter Procedures X-ray lumbar spine complete 4+ views Ambulatory referral order to Physical Therapy - EMG/NCV - This note was dictated using [employer] software. This note was not read in detail; therefore, variances and inaccuracies may occur. Escobar Toussaint MD Professor Physical Medicine and Rehabilitation [facility] Orthopedics documented in this encounter Plan of Treatment Not on file documented as of this encounter Results * EMG/NCV - (04/15/2023 7:50 AM CDT) Anatomical Region Laterality Modality Other us Escobar Boone MD NEUROLOGY ORDERABLES Final Result * X-ray lumbar spine complete 4+ views (03/21/2023 9:49 AM CDT) Anatomical Region Laterality Modality Spine N/A Computed Radiogr aphy 03/21/2023 10:0 4 AM CDT Impressions 03/21/2023 10:04 AM CDT Multilevel lumbar degenerative disc disease, greatest and moderate at L5-S1. Moderate lower lumbar facet arthropathy. Electronically signed by: Geovanni Gonzalez MD Narrative 03/21/2023 10:04 AM CDT EXAM: 1. ??XR SPINE LUMBAR 4 OR MORE VIEWS HISTORY: Degenerative lumbar stenosis, left L5 radiculopathy. FINDINGS: 4 radiographs of the lumbar spine including flexion and extension views are submitted without comparison. Grade 1 anterolisthesis of L4 on L5. No abnormal motion with bending. Multilevel lumbar degenerative disc disease, greatest and moderate at L5-S1. Moderate lower lumbar facet arthropathy. No compression deformity. Procedure Note Geovanni Gonzalez MD - 03/21/2023 EXAM: 1. XR SPINE LUMBAR 4 OR MORE VIEWS HISTORY: Degenerative lumbar stenosis, left L5 radiculopathy. FINDINGS: 4 radiographs of the lumbar spine including flexion and extension views are submitted without comparison. Grade 1 anterolisthesis of L4 on L5. No abnormal motion with bending. Multilevel lumbar degenerative disc disease, greatest and moderate at L5-S1. Moderate lower lumbar facet arthropathy. No compression deformity. IMPRESSION: Multilevel lumbar degenerative disc disease, greatest and moderate at L5-S1. Moderate lower lumbar facet arthropathy. Electronically signed by: Geovanni Gonzalez MD Escobar Boone MD IMG XR PROCEDURES Final Re sult documented in this encounter Visit Diagnoses Diagnosis Left lumbar radiculopathy Thoracic or lumbosacral neuritis or radiculitis, unspecified Mechanical low back pain Lumbago Spinal stenosis, lumbar region, without neurogenic claudication Lumbar spondylosis Lumbosacral spondylosis without myelopathy Left lumbar radiculopathy Thoracic or lumbosacral neuritis or radiculitis, unspecified Spinal stenosis, lumbar region, without neurogenic claudication Lumbar spondylosis Lumbosacral spondylosis without myelopathy documented in this encounter Discontinued Medications Medication Sig Discontinue Reason Start Date End Da te loratadine (CLARITIN) 10 mg tablet Claritin Therapy completed 03/21/2023 loratadine (CLARITIN) 10 mg tablet Claritin Therapy completed 03/21/2023 documented as of this encounter Historical Medications * This list may reflect changes made after this encounter. multivitamin capsule Take 1 capsule by mouth daily calcium citrate-vitamin D3 (CITRACAL WITH D) 315 mg-6.25 mcg (250 unit) per tablet Take 1 tablet by mouth daily tacrolimus (Protopic) 0.1 % ointment Protopic 0.1 % topical ointment APPLY A THIN LAYER TO THE AFFECTED AREA(S) BY TOPICAL ROUTE 2 TIMES PER DAY ; RUB IN GENTLY AND COMPLETELY on the eyelids mupirocin (BACTROBAN) 2 % ointment mupirocin 2 % topical ointment JAYLIN EXT AA TID EPINEPHrine 0.3 mg/0.3 mL auto-injection syringe epinephrine 0.3 mg/0.3 mL injection, auto-injector INJECT 0.3 MG IN THE MUSCLE EVERY 4 HOURS NEEDED FOR ANAPHYLAXIS rosuvastatin (CRESTOR) 5 mg tablet 03/19/2023 4 added in this encounter Care Teams Education Sales Consultant Relationship Specialty Start Date End Date Panda Myrick MD [address] [facility] [address] [place] [address] PCP - General Family Medicine 04/16/19 documented as of this encounter
--- OUTSIDE RECORDS SUMMARY | 2024-12-17 04:01 | XMS_ITS | Encounter Summary ---
Author Organization [facility] Address [address] [place] [address] Phone Care Team Providers Care Dental Insurance Biller Name Role Phone Panda Myrick MD Primary Care Provider Encounter Details Date Type Department Care Team (Late st Contact Info) Description 03/28/2022 Telephone [facility] Dermatology [address] [place] [address] [address] [place] [address] Juan Carlos Hilario MD [address] [place] [address] [address] [place] [address] Social History Tobacco Use Types Packs/Day Years Used Date Smoking Tobacco: Never Alcohol Use Standard Drinks/Week Comments Yes 0 (1 standard drink = 0.6 oz pur e alcohol) Comments Unknown Sex and Gender Information Value Date Recorded Sex Assigned at Not on file 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 Gender Identity Female 02/28/2021 6:37 AM CDT Sexual Orientation Straight 02/28/2021 6: 37 AM CDT documented as of this encounter Miscellaneous Notes * Telephone Encounter - Jackie Hurtado RMA - 03/28/2022 2:05 PM CDT error documented in this encounter Plan of Treatment Not on file documented as of this encounter Visit Diagnoses Not on filedocumented in this encounter Care Teams Dental Insurance Biller Relationship Specialty Start Date End Date Panda Myrick MD [address] [facility] [address] [place] [address] PCP - General Family Medicine 04/16/19 documented as of this encounter
--- OUTSIDE RECORDS SUMMARY | 2024-12-17 04:01 | XMS_ITS | Encounter Summary ---
Author Organization [facility] Address [address] [place] [address] Phone Care Team Providers Care Guest House Manager Name Role Phone Panda Myrick MD Primary Care Provider Encounter Details Date Type Department Care Team (Late st Contact Info) Description 03/22/2023 Telephone [facility] Orthopaedic Surgery [address] [place] [phone] Escobar Boone MD [address] [facility] [address] [place] [address] Social History Tobacco Use Types Packs/Day Years Used Date Smoking Tobacco: Never Alcohol Use Standard Drinks/Week Comments Yes 0 (1 standard drink = 0.6 oz pur e alcohol) Comments Unknown Sex and Gender Information Value Date Recorded Sex Assigned at Not on file 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 Spoke with patient and advised. No further questions at this time. * Telephone Encounter - Patti Avina - 03/22/2023 11:45 AM CDT Patient was here yesterday and states just missed a call from us she is available at [phone] documented in this encounter Plan of Treatment Not on file documented as of this encounter Visit Diagnoses Not on filedocumented in this encounter Care Teams Guest House Manager Relationship Specialty Start Date End Date Panda Myrick MD [address] [facility] [address] [place] [address] PCP - General Family Medicine 04/16/19 documented as of this encounter
--- OUTSIDE RECORDS SUMMARY | 2024-12-17 04:01 | XMS_ITS | Encounter Summary ---
Author Organization [facility] Address [address] [place] [address] Phone Care Team Providers Care Fur Blowing Machine Attendant Name Role Phone Panda Myrick MD Primary Care Provider Reason for Visit * Reason Comments Pain Encounter Details Date Type Department Care Team (Late st Contact Info) Description 01/30/2024 8:45 AM VOCATIONAL TRAINING TEACHER Office Visit [facility] [address] [facility] Medical Office Building [address] [place] [address] Escobar Boone MD [address] [facility] [address] [place], [place] [id number] Lumbar spondylosis (Primary Dx); Mechanical low back pain Social History Tobacco Use Types Packs/Day Years Used Date Smoking Tobacco: Never Alcohol Use Standard Drinks/Week Comments Yes 0 (1 standard drink = 0.6 oz pur e alcohol) Personal Safety Answer Date Recorded Getting School Help Needed Not on file 12/19 Comments Unknown Sex and Gender Information Value Date Recorded Sex Assigned at Not on file Legal Sex Female 2:33 AM VOCATIONAL TRAINING TEACHER Gender Identity Female 02/28/2021 6:37 AM CDT Sexual Orientation Straight 02/28/2021 6: 37 AM CDT documented as of this encounter Patient Instructions * Patient Instructions* Niurka Campbell LPN - 01/30/2024 8:45 AM VOCATIONAL TRAINING TEACHER We discussed things in detail today. I recommend: Continue physical therapy exercises independently as learned. Continue cycling and preferred activities as tolerated. Voltaren gel for low back pain may be helpful as needed. Acetaminophen as needed can be helpful for control of pain. Use of ice and/or heat as needed. Follow-up/update me via patient portal or phone call as needed. TIONAL TRAINING TEACHER documented in this encounter Progress Notes * Escobar Boone MD - 01/30/2024 8:45 AM CST ESTABLISHED PATIENT VISIT INTERIM HISTORY: Catarina Nuno is a 58 y.o. female who presents to the office today for follow-up. She continues to experience left greater than right low back pain, most significant in the morning, better with early mobilization through the day. Symptoms have not changed overall, and currently she finds the manageable. She is able to continue cycling without aggravation of symptoms. She does experience occasional exacerbations of symptoms that tianna with short-term activity modification/relative rest. She does not feel in need of specific intervention or treatment today but makes this appointment in way of check in regarding progress and current management strategy. Past medical history and review of systems are otherwise without significant change from previous visit. PHYSICAL EXAM: On examination today, the patient is alert and appropriate, and in no apparent distress. She transfers [id number] without difficulty, gait is normal. Lumbar range of motion is mildly provocative ofpain with extension greater than flexion and left side bending, relative relief with rotation. Dural tension signs are absent. There is no significant axial spine or bony posterior pelvic tenderness to palpation. REVIEW OF X-RAYS/STUDIES: Report of lumbar spine MRI dated June 2019 indicates significant degenerative stenosis at L4-L5, which he is not available for direct review today. Lumbar spine x-rays completed in March 2023 are reviewed again today: Mild to moderate multilevel degenerative changes most significant at L4-L5 where there is grade 1 anterolisthesis of L4 and moderate degenerative changes at L5-S1 otherwise.. There is no abnormal motion with flexion and extensionviews. IMPRESSION/DIAGNOSIS: Extension biased lumbar pain with underlying degenerative changes, stenosis and history of episodicradicular pain, well compensated at this point. TREATMENT PLAN: We discussed things in detail today. I recommend: Continue physical therapy exercises independently as learned. Continue cycling and preferred activities as tolerated. Voltaren gel for low back pain may be helpful as needed. Acetaminophen as needed can be helpful for control of pain. Use of ice and/or heat as needed. Follow-up/update me via patient portal or phone call as needed. The rational for all recommendations, as well as relevant risks, are discussed with the patient in detail. The patient expresses understanding, comfort and agreement with the plan, all questions are answered. No orders of the defined types were placed in this encounter. This note was dictated using [employer] software. This note was not read in detail; therefore, variances and inaccuracies may occur. Escobar Toussaint MD Professor Physical Medicine and Rehabilitation [facility] TIONAL TRAINING TEACHER documented in this encounter Plan of Treatment Not on file documented as of this encounter Visit Diagnoses Diagnosis Lumbar spondylosis- Primary Lumbosacral spondylosis without myelopathy Mechanical low back pain Lumbago documented in this encounter Discontinued Medications Medication Sig Discontinue Reason Start Date End Da te rosuvastatin (CRESTOR) 5 mg tablet Alternate therapy 03/19/2023 01/30/2024 documented as of this encounter Historical Medications * This list may reflect changes made after this encounter. atorvastatin (LIPITOR) 40 mg tablet Take 1 tablet (40 mg total) by mouth daily 04/12/2023 loratadine (Claritin) 10 mg tablet Take 1 tablet every day by oral route. ezetimibe (ZETIA) 10 mg tablet Take 1 tablet (10 mg total) by mouth daily 04/12/2023 added in this encounter Care Teams Fur Blowing Machine Attendant Relationship Specialty Start Date End Date Panda Myrick MD [address] [facility] [address] [place] [address] PCP - General Family Medicine 04/16/19 documented as of this encounter
--- OUTSIDE RECORDS SUMMARY | 2024-12-17 04:01 | XMS_ITS | Encounter Summary ---
Author Organization [facility] Address [address] [place] [address] Phone Care Team Providers Care Etch Operator Semiconductor Wafers Name Role Phone Panda Myrick MD Primary Care Provider Encounter Details Date Type Department Care Team (Late st Contact Info) Description 03/08/2021 10:30 AM CDT Office Visit [facility] [address] [place] [address] [address] [place] [address] Juan Carlos Hilario MD [address] [place] [address] [address] [place], [place] [id number] Eyelid dermatitis, allergic/contact (Primary Dx); Allergic contact dermatitis due to other agents Social History Tobacco Use Types Packs/Day Years Used Date Smoking Tobacco: Never Alcohol Use Standard Drinks/Week Comments Yes 0 (1 standard drink = 0.6 oz pur e alcohol) Comments Unknown Sex and Gender Information Value Date Recorded Sex Assigned at Not on file Legal Sex Female 2:33 AM PACKAGE SEALER MACHINE Gender Identity Female 02/28/2021 6:37 AM CDT Sexual Orientation Straight 02/28/2021 6: 37 AM CDT documented as of this encounter Last Filed Vital Signs Vital Sign Reading Time Taken Comments Blood Pressure - - Pulse - - Temperature 36.4 ??C (97.5 ??F) 03/08/2021 10:35 AM C DT Respiratory Rate - - Oxygen Saturation - - Inhaled Oxygen Concentration - - Weight - - Height - - Body Mass Index - - documented in this encounter Progress Notes * Juan Carlos Hilario MD - 03/08/2021 10:30 AM CDT [place]: March 08, 2021 CC: patch test reading HPI: is a 56 y.o. female with a hx of eczema as a child and food allergies including ketchupbut mostly cleared after , for last 15 years has had it on eyelids, itchy red. Pt presentstoday for final patch test reading. At [facility], 80 allergens and 23 hair allergens were placed on back of pt. No other skin complaints. No changing moles or non-healing sores. ROS: No fevers, chills, shortness of breath, or abdominal pain. No mouth or genital sores. PHYSICAL EXAM: Positive patch test allergens: 2+ at Balsam hermila 2+ at Nickel 2+ at cobalt chloride 1+ at Oleamidopropyl dimethylamine (aqueous) 1+ at Propolis 2+ at Benzalkonium chloride 1+ at cetrimonium bromide Otherwise: GENERAL: Appears well. No acute distress. ORIENTATION: Alert and oriented x3. MOOD/AFFECT: Normal affect. FACE: No abnormalities noted. EARS: No abnormalities noted. SCALP/HAIR: No abnormalities noted. EYES/EYELIDS: No scleral icterus. No abnormalities noted of conjunctiva or eyelids. LIPS/ORAL MUCOSA: No abnormalities noted. NECK: No abnormalities noted. CHEST: No abnormalities noted. BACK: No abnormalities noted. ABDOMEN: No abnormalities noted. EXTREMITIES (RUE): No abnormalities noted. EXTREMITIES (LUE): No abnormalities noted. EXTREMITIES (RLE): No abnormalities noted. EXTREMITIES (LLE): No abnormalities noted. DIGITS/NAILS: No cyanosis, clubbing, or nail abnormality. ASSESSMENT AND PLAN: #Eyelid dermatitis with #Allergic contact dermatitis Positive patch test allergens: 2+ at Balsam hermila (fragrance and foods, see below) 2+ at Nickel (uncertain relevance) 2+ at cobalt chloride (uncertain relevance) 1+ at Oleamidopropyl dimethylamine (in shampoo) 1+ at Propolis (in melissa bees and other products) 2+ at Benzalkonium chloride (cross reacts with benzethonium chloride in antibacterial soap) 1+ at cetrimonium bromide (in shampoo, conditioner) ##She uses melissa bees and dial antibacterial soap - both have allergens and are highly likely causes of her dermatitis - she uses melissa bees products on her eyelids and they usually contain propolis (the bees component) also oleamidopropyl dma is a major component of shampoo and she will avoid that and avoid fragrance given her balsam of hermila allergy. Additionally she will monitor for worsening when cooking with or eating b of p associated foods: Cinnamon, clove, tomato, citrus, chocolate, cola etc; and check labels for cetrimonium bromide common in shampoo and conditioner and avoid) Specific recommendations: Free and clear shampoo, vanicream bar soap, plain vaseline, argan or jojoba oil and check labels as above and: Allergens were discussed, handouts were provided and explained. Avoid allergens in all forms including possible cross-reactors. If continues to break-out with rash despite avoidance measures, keep journal of possible triggers and will possibly expand testing in the future. Avoid cinnamon, tomatoes, and fragrance Pt uses Farrell's bees products on eyes and face. Instructed to avoid all Farrell's bee products due to sensitivity of propolis Avoid cetrimonium bromide in hair products. Return visit: prn. Patient was instructed to return sooner should they develop any new, changing and/or worsening lesions, side effects of any recommended treatments, or as needed. SCRIBE ATTESTATION By signing my name, I, Gene Quintanilla, attest that this documentation has been prepared under the direction and in the presence of Dr. Hilario. March 08, 2021. ATTENDING ATTESTATION I personally performed the services described in this documentation, reviewed and edited the documentation which was dictated to the scribe in my presence, and it accurately records my words and actions. *Scribe Attestation: The above is an accurate record of my words and actions during the patientvisit. Juan Carlos Hilario MD documented in this encounter Plan of Treatment Not on file documented as of this encounter Visit Diagnoses Diagnosis Eyelid dermatitis, allergic/contact- Primary Contact and allergic dermatitis of eyelid Allergic contact dermatitis due to other agents documented in this encounter Care Teams Etch Operator Semiconductor Wafers Relationship Specialty Start Date End Date Panda Myrick MD [address] [facility] [address] [facility] [address] [place] [address] PCP - General Family Medicine 04/16/19 documented as of this encounter
--- OUTSIDE RECORDS SUMMARY | 2024-12-17 04:01 | XMS_ITS | Encounter Summary ---
Author Organization [facility] Address [address] [place] [address] Phone Care Team Providers Care Microbiology Quality Control Technician Name Role Phone Panda Myrick MD Primary Care Provider Encounter Details Date Type Department Care Team (Late st Contact Info) Description 04/12/2023 Telephone [facility] Orth[facility] Medical Office Building [address] [place] [address] Niurka Campbell LPN Social History Tobacco Use Types Packs/Day Years Used Date Smoking Tobacco: Never Alcohol Use Standard Drinks/Week Comments Yes 0 (1 standard drink = 0.6 oz pur e alcohol) Comments Unknown Sex and Gender Information Value Date Recorded Sex Assigned at Not on file Legal Sex Female 2:33 AM ROLL DOUGH DIVIDER Gender Identity Female 02/28/2021 6:37 AM CDT Sexual Orientation Straight 02/28/2021 6: 37 AM CDT documented as of this encounter Miscellaneous Notes * Telephone Encounter - Niurka Campbell LPN - 04/12/2023 11:53 AM CDT Pt has been made aware of the location change from the [facility] [place] for [place] appointmentMon, 04/15. documented in this encounter Plan of Treatment Not on file documented as of this encounter Visit Diagnoses Not on filedocumented in this encounter Care Teams Microbiology Quality Control Technician Relationship Specialty Start Date End Date Panda Myrick MD [address] [facility] [address] [place] [address] PCP - General Family Medicine 04/16/19 documented as of this encounter
--- OUTSIDE RECORDS SUMMARY | 2024-12-17 04:01 | XMS_ITS | Referral Summary ---
Author Organization [facility] Address [address] [place] [address] Care Team Providers Care Director Of Athletics Name Role Phone Panda Myrick MD Primary Care Provider Allergies Active Allergy Reactions Criticality Noted Date Comments Amoxicillin Balsam Lawrence Unknown 03/08/2021 Allergy patch tested positive Benzalkonium Chloride Unknown 03/08/2021 Allergy patch tested positive Cetrimonium Mentone Unknown 03/08/2021 Allergy patch tested positive [place] Chloride Unknown 03/08/2021 Allergy patch tested positive Erythromycin Anaphylaxis,Other (See comments) High 01/30/2024 Oleamidopropyl Dimethylamine Unknown 03/08/2021 Allergy patch tested positive Penicillins Propolis (Bee Glue) Unknown 03/08/2021 Allergy patch tested positive Sulfamethoxazole-Trimetho prim Rash Medium Tetracycline Medications garlic 1 mg capsule Take by mouth Active turmeric, bulk, 95 % powder Active omega-3 fatty acids-fish oil 300-1,000 mg capsule Take 2 g by mouth daily Active flaxseed oil oil Active EPINEPHrine 0.3 mg/0.3 mL auto-injection syringe epinephrine 0.3 mg/0.3 mL injection, auto-injector INJECT 0.3 MG IN THE MUSCLE EVERY 4 HOURS NEEDED FOR ANAPHYLAXIS Active mupirocin (BACTROBAN) 2 % ointment mupirocin 2 % topical ointment JAYLIN EXT AA TID Active tacrolimus (Protopic) 0.1 % ointment Protopic 0.1 % topical ointment APPLY A THIN LAYER TO THE AFFECTED AREA(S) BY TOPICAL ROUTE 2 TIMES PER DAY ; RUB IN GENTLY AND COMPLETELY on the eyelids Active calcium citrate-vitamin D3 (CITRACAL WITH D) 315 mg-6.25 mcg (250 unit) per tablet Take 1 tablet by mouth daily Active multivitamin capsule Take 1 capsule by mouth daily Active ezetimibe (ZETIA) 10 mg tablet Take 1 tablet (10 mg total) by mouth daily 3 Active loratadine (Claritin) 10 mg tablet Take 1 tablet every day by oral route. 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 Enlarged uterus 10/12/2019 Low back pain 10/12/2019 Menometrorrhagia 10/12/2019 Osteochondritis dissecans 10/12/2019 Social History Tobacco Use Types Packs/Day Years Used Date Smoking Tobacco: Never Alcohol Use Standard Drinks/Week Comments Yes 0 (1 standard drink = 0.6 oz pur e alcohol) Personal Safety Answer Date Recorded Getting School Help Needed Not on file 12/19 Comments Unknown Sex and Gender Information Value Date Recorded Sex Assigned at Not on file Legal Sex Female 2:33 AM PATIENT REPRESENTATIVE Gender Identity Female 02/28/2021 6:37 AM CDT Sexual Orientation Straight 02/28/2021 6: 37 AM CDT Last Filed Vital Signs Vital Sign Reading Time Taken Comments Blood Pressure - - Pulse - - Temperature 36.4 ??C (97.5 ??F) 03/08/2021 10:35 AM C DT Respiratory Rate - - Oxygen Saturation - - Inhaled Oxygen Concentration - - Weight 54.9 kg (121 lb) 10/26/2019 9:52 AM PATIENT REPRESENTATIVE Height 170.2 cm (5' 7 ) 10/26/2019 9:52 AM PATIENT REPRESENTATIVE Body Mass Index 18.95 10/26/2019 9:52 AM PATIENT REPRESENTATIVE Plan of Treatment Not on file [facility] [id number] [facility] [id number] [facility] Care Teams Director Of Athletics Relationship Specialty Start Date End Date Panda Myrick MD [address] [facility] [address] [place] [address] PCP - General Family Medicine 04/16/19
--- OUTSIDE RECORDS SUMMARY | 2024-12-17 04:01 | XMS_ITS | Encounter Summary ---
Author Organization [facility] Address [address] [place] [address] Phone Care Team Providers Care Blueprint Tracer Name Role Phone Panda Myrick MD Primary Care Provider Encounter Details Date Type Department Care Team (Late st Contact Info) Description 03/28/2023 Orders Only [facility] Orthopaedic Surgery [address] [facility] Medical Office Building [address] [place] [address] Escobar Boone MD [address] [facility] [address] [place] [address] Mechanical low back pain (Primary Dx) Social History Tobacco Use Types Packs/Day Years Used Date Smoking Tobacco: Never Alcohol Use Standard Drinks/Week Comments Yes 0 (1 standard drink = 0.6 oz pur e alcohol) Comments Unknown Sex and Gender Information Value Date Recorded Sex Assigned at Not on file Legal Sex Female 2:33 AM FILAMENT CUTTER Gender Identity Female 02/28/2021 6:37 AM CDT Sexual Orientation Straight 02/28/2021 6: 37 AM CDT documented as of this encounter Plan of Treatment Not on file documented as of this encounter Visit Diagnoses Diagnosis Mechanical low back pain- Primary Lumbago documented in this encounter Care Teams Blueprint Tracer Relationship Specialty Start Date End Date Panda Myrick MD [address] [place] [address] PCP - General Family Medicine 04/16/19 documented as of this encounter
--- OUTSIDE RECORDS SUMMARY | 2024-12-17 04:01 | XMS_ITS | Encounter Summary ---
Author Organization [facility] Address [address] [place] [address] Phone Care Team Providers Care Club Room Attendant Name Role Phone Panda Myrick MD Primary Care Provider Encounter Details Date Type Department Care Team (Late st Contact Info) Description 01/27/2021 Telephone [facility] Dermatology [address] [place] [address] [address] [place] [address] Juan Carlos Hilario MD [address] [place] [address] [address] [place] [address] Social History Tobacco Use Types Packs/Day Years Used Date Smoking Tobacco: Never Alcohol Use Standard Drinks/Week Comments Yes 0 (1 standard drink = 0.6 oz pur e alcohol) Comments Unknown Sex and Gender Information Value Date Recorded Sex Assigned at Not on file Legal Sex Female 2:33 AM OPTOMETRY DOCTOR Gender Identity Female 02/28/2021 6:37 AM CDT Sexual Orientation Straight 02/28/2021 6: 37 AM CDT documented as of this encounter Miscellaneous Notes * Telephone Encounter - Jackie Hurtado, A - 01/31/2021 2:49 PM CST Lmor that appointments have been cancelled and that if she wants to reschedule she can give the office a call. Explained we are scheduling 2-3 weeks out. METRY DOCTOR * Telephone Encounter - Alize Blanton - 01/27/2021 9:00 AM CST Pt calling to reschedule patch testing due to family in town METRY DOCTOR documented in this encounter Plan of Treatment Not on file documented as of this encounter Visit Diagnoses Not on filedocumented in this encounter Care Teams Club Room Attendant Relationship Specialty Start Date End Date Panda Myrick MD [address] [facility] [address] [place] [id number] PCP - General Family Medicine 04/16/19 documented as of this encounter
--- OUTSIDE RECORDS SUMMARY | 2024-12-17 04:01 | XMS_ITS | Encounter Summary ---
Author Organization [facility] Care Team Providers Care Inspector Eyeglass Frames Name Role Phone Unavailable Primary Care Provider Unavailabl e Encounter Details Date Type Department Care Team (Latest Contact Info) Description 10/18/2008 3:22 PM ELECTRIC SEALING MACHINE OPERATOR - 10/18/2008 9:54 PM [facility] Hospital Encounter [facility] Open wound of finger with tendon involvement; Injury to ulnar nerve; Need for prophylactic vaccination with tetanus-diphtheria (Td); Accident caused by other hand tools and implements; Unspecified place of occurrence Social History Tobacco Use Types Packs/Day Years Used Date Smoking Tobacco: Never Assessed Comments Unknown Sex and Gender Information Value Date Recorded Sex Assigned at Not on file Legal Sex Female 2:33 AM ELECTRIC SEALING MACHINE OPERATOR Gender Identity Female 02/28/2021 6:37 AM CDT Sexual Orientation Straight 02/28/2021 6: 37 AM CDT documented as of this encounter Plan of Treatment Not on file documented as of this encounter Visit Diagnoses Diagnosis Open wound of finger with tendon involvement Open wound of finger(s) , with tendon involvement Injury to ulnar nerve Need for prophylactic vaccination with tetanus-diphtheria (Td) Accident caused by other hand tools and implements Unspecified place of occurrence documented in this encounter
--- OUTSIDE RECORDS SUMMARY | 2024-12-17 04:01 | XMS_ITS | Encounter Summary ---
Author Organization [facility] Address [address] [place] [address] Phone Care Team Providers Care Poultry Farm Worker Name Role Phone Panda Myrick MD Primary Care Provider Reason for Visit * Reason Comments Test Results Encounter Details Date Type Department Care Team (Late st Contact Info) Description 10/12/2019 2:40 PM BAND INSTRUMENT REPAIRER Office Visit [facility] Orthopaedic Surgery [address] 2nd [address] [place] [phone] Adán Garza MD [address] [address] [place] [address] Chronic pain of left knee (Primary Dx) Social History Tobacco Use Types Packs/Day Years Used Date Smoking Tobacco: Never Alcohol Use Standard Drinks/Week Comments Yes 0 (1 standard drink = 0.6 oz pur e alcohol) Comments Unknown Sex and Gender Information Value Date Recorded Sex Assigned at Not on file Legal Sex Female 2:33 AM BAND INSTRUMENT REPAIRER Gender Identity Female 02/28/2021 6:37 AM CDT Sexual Orientation Straight 02/28/2021 6: 37 AM CDT documented as of this encounter Progress Notes * Ghulam Elizalde MD - 10/12/2019 12:00 AM CST ESTABLISHED PATIENT VISIT INTERIM HISTORY: The patient is a 54-year-old female who reports back to clinic after receiving an MRI for her left knee pain. The patient has longstanding left knee pain that is predominantly lateral in nature. She reports approximately 5 to 6 years ago she tripped over a dog and had subsequent left knee pain. Sheis no longer able to run extended distances or walk extended distances which she would like to be doing. She is extremely healthy and would like to be more active than her left knee currently allows.She reports some clicking and catching in the left knee, and again the pain is predominantly lateral. No medial-sided left knee pain. No left hip or right hip pain. No right knee pain. The patient isotherwise a healthy 54-year-old. 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 PHYSICAL EXAMINATION: General: The patient appears well, in no acute distress. Musculoskeletal: The patient has tenderness to palpation at lateral joint line. Negative Markus's. Negative reverse Markus's. Negative anterior drawer and posterior drawer. Negative Lesli's. Full knee range of motion 0 to 130 degrees. The patient demonstrates gait with no limp. REVIEW OF X-RAY/STUDIES: MRI reviewed in office today demonstrating an approximate 8 mm x 10 mm osteochondral defect about the lateral femoral condyle. Small meniscal cyst of lateral meniscus. IMPRESSION/DIAGNOSIS: The patient is a 54-year-old female with well-maintained joint space, who has a focal defect about her lateral femoral condyle we feel may be amenable to potential osteochondral allograft versus autograft procedure. TREATMENT PLAN: We discussed that we will refer the patient over to our sports medicine colleagues for their further evaluation and management. The patient may do all activities as tolerated until she sees them withpain being a limiting factor. The patient expressed understanding and agreement with the plan. Dictated by: Ghulam Elizalde M.D. ATTENDING ADDENDUM The patient's history and physical examination have been dictated by Dr. Elizalde. I have independently performed a history and physical examination, and I agree with the findings. ELECTRONICALLY SIGNED - 10/13/2019 08:37 AM Adán Garza MD Intensive Care Unit Nurse Joint Preservation, Resurfacing and Replacement Service [facility] Orthopedics CAA/RN/jq cc: MD PANDA DUNN MD INSTRUMENT REPAIRER documented in this encounter Plan of Treatment Not on file documented as of this encounter Visit Diagnoses Diagnosis Chronic pain of left knee- Primary documented in this encounter Historical Medications * This list may reflect changes made after this encounter. loratadine (CLARITIN) 10 mg tablet Claritin 03/21/2023 added in this encounter Care Teams Poultry Farm Worker Relationship Specialty Start Date End Date Panda Myrick MD [address] [facility] [address] [place] [address] PCP - General Family Medicine 04/16/19 documented as of this encounter
--- OUTSIDE RECORDS SUMMARY | 2024-12-17 04:01 | XMS_ITS | Encounter Summary ---
Author Organization [facility] Address [address] [place] [address] Phone Care Team Providers Care Master Control Engineer Name Role Phone Panda Myrick MD Primary Care Provider Reason for Referral * Durable Medical Equipment (Routine) - Closed Specialty Diagnoses / Procedures Referred By Contac t Referred To Contact Diagnoses Osteochondral defect of condyle of femur Procedures Miscellaneous DME Solomon Ace IV, MD Phone: tel: fax: [facility] [address] [facility] [address] [place] [address] Phone: tel: Referral ID Status Reason Start Date Expiration Date Visits Re quested Visits Authorized [id number] Closed 10/26/2019 05/06/2021 1 1 AT PHOTOCOMPOSING MACHINE OPERATOR Reason for Visit * Reason Comments Pain Encounter Details Date Type Department Care Team (Latest Contact Info) Description 10/26/2019 10:00 AM REPEAT PHOTOCOMPOSING MACHINE OPERATOR Office Visit [facility] Orthopaedic Surgery [address] [facility] 12th [place] [address] [place] [address] [place] [address] [place] [address] Osteochondral defect of condyle of femur (Primary Dx); Chondromalacia of left patella; 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 Social History Tobacco Use Types Packs/Day Years Used Date Smoking Tobacco: Never Alcohol Use Standard Drinks/Week Comments Yes 0 (1 standard drink = 0.6 oz pur e alcohol) Comments Unknown Sex and Gender Information Value Date Recorded Sex Assigned at Not on file Legal Sex Female 2:33 AM REPEAT PHOTOCOMPOSING MACHINE OPERATOR Gender Identity Female 02/28/2021 6:37 AM CDT Sexual Orientation Straight 02/28/2021 6: 37 AM CDT documented as of this encounter Last Filed Vital Signs Vital Sign Reading Time Taken Comments Blood Pressure - - Pulse - - Temperature - - Respiratory Rate - - Oxygen Saturation - - Inhaled Oxygen Concentration - - Weight 54.9 kg (121 lb) 10/26/2019 9:52 AM REPEAT PHOTOCOMPOSING MACHINE OPERATOR Height 170.2 cm (5' 7 ) 10/26/2019 9:52 AM REPEAT PHOTOCOMPOSING MACHINE OPERATOR Body Mass Index 18.95 10/26/2019 9:52 AM REPEAT PHOTOCOMPOSING MACHINE OPERATOR documented in this encounter Progress Notes * Leland Montana MS - 10/26/2019 10:00 AM CST MEASUREMENTS: 10/26/19 THIGH: 19 OFFSET: 8 CALF: 13.5 [id number], LAT GRANT ADMINISTRATOR LT Cosigned by Solomon Ace IV, MD at 10/27/2019 6:53 PM REPEAT PHOTOCOMPOSING MACHINE OPERATOR AT PHOTOCOMPOSING MACHINE OPERATOR AT PHOTOCOMPOSING MACHINE OPERATOR * Solomon Ace IV, MD - 10/26/2019 12:00 AM CST NEW PATIENT VISIT CHIEF COMPLAINT: Catarina comes in today with a chief complaint of left lateral knee pain for 6 years. HISTORY OF PRESENT ILLNESS: The patient is a 54-year-old woman who has had 6 years of left knee pain. She originally injured it6 years ago when she tripped over her dog. She was diagnosed with damage to her cartilage and bone and had a corticosteroid injection as well as physical therapy and anti-inflammatories. She has continued to have a moderate sharp pain, worse with walking and stairs, better with no activity. She is able to bike but she has not been able to walk with her . She takes Advil as needed. She had seen Dr. Garza who was concerned for a focal damage in the lateral compartment and referred over tosee us today. She has not had a trial of an blueprint maker brace previously. She has not noticed significant swelling. PAST MEDICAL HISTORY, MEDICATIONS, ALLERGIES, PAST SURGICAL HISTORY, FAMILY HISTORY, SOCIAL HISTORY, AND REVIEW OF SYMPTOMS: Filled out by the patient on the enclosed intake form which is reviewed and signed by me. PHYSICAL EXAMINATION: General: The patient is a pleasant adult female in no acute distress. Height 5 feet 7 inches, 125 pounds. Alert and oriented x3. Respirations are regular and without distress. Hearing is intact to the spoken word. Musculoskeletal: She ambulates with a normal gait. Skin is intact in both lower extremities. No erythema, ecchymosis, edema, or effusion bilaterally. She has 0 to 140 degrees of flexion bilaterally. Mild pain with hyperflexion and hyperextension on the left, none on the right. Tender over the lateral joint line on the left knee, no tenderness on the right knee. A 1A Lesli, 1A anterior drawer and 1A posterior drawer bilaterally. Symmetric opening to varus and valgus stress at 0 and 30 degrees of flexion bilaterally. Negative pivot shift bilaterally. Lateral pain with [place] on the left, negative on the right. No pain with squat bilaterally. Intact to light touch over the medial and lateral leg, dorsum of the foot including the first webspace and plantar aspect of the foot bilaterally. She has 5/5 tib-ant, EHL and gastrocsoleus strength bilaterally. Palpable dorsalis pedis pulse bilaterally with a regular rate and rhythm. REVIEW OF X-RAY/STUDIES: I reviewed plain films, 3 views of the left knee including bilateral Merchant and Herrmann which show no fracture, a small effusion, normal alignment. I reviewed an MRI from October 12 which shows an [id number] subchondral insufficiency fracture of the posterior and central weightbearing lateral femoral condyle which looks like it is collapsed over about a 1.5 x 2 cm area. There is no meniscus tear. There is a small effusion. No loose bodies. 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 TREATMENT PLAN: I went over the MRI with Catarina. I explained there is no reason to jump to aggressive intervention, but she has failed appropriate conservative management including an injection, physical therapy and NSAIDs. I think we could offer her a lateral blueprint maker brace which she could try to use with walking with her . I would also recommend a diagnostic arthroscopy with possible chondroplasty of the patella and lateral femoral condyle. If we went forward with surgery, I think it is possible she would get some short-lasting intermediate improvement, but no guarantee she would have significant long- lasting improvement. The arthroscopy would also give us very good idea whether she could be a candidate for any more aggressive quaker procedure such as an osteochondral allograft of the lateral femoral condyle. I would not jump to that procedure without doing a scope first. I discussed what would be involved with the surgery and the recovery. I explained it would be an outpatient procedure, it would take under an hour and the whole thing would take part of the day. She would be off herfeet for 2 days and start to get back to light activity in 3 or 4 days but I would want her to takeit easy for 10 to 12 days. I would see her back in about 2 weeks, check her wounds, go over the arthroscopic pictures with her and most likely get her started on a bike. I would hope to have a maximal recovery within 2 to 3 months. I discussed the risks and benefits of the surgery, including but not limited to, risk of infection, risk of nerve and blood vessel injury, risk with anesthesia, risk of a blood clot, and risk for limited, delayed or short-lasting improvement in symptoms. If she did not get sustained significant relief from the surgery, then we would know whether she was a candidatefor a more aggressive larger procedure such as an osteochondral allograft. I explained I would not jump to that kind of procedure without at least seeing the knee and see if she got any benefit from a debridement. She appears to understand her injury, treatment alternatives, indications for surgery, risks and benefits and what is involved in recovery and wishes to proceed. We can schedule the surgery at her convenience. I would be careful with the knee in the interim. Catarina had all of her questions answered and appears comfortable with this plan going forward. 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
--- OUTSIDE RECORDS SUMMARY | 2024-12-17 04:01 | XMS_ITS | Encounter Summary ---
Author Organization [facility] Address [address] [place] [address] Care Team Providers Care Donor Services Team Leader Name Role Phone Panda Myrick MD Primary Care Provider Reason for Referral * Diagnostic Imaging (Routine) - Closed Specialty Diagnoses / Procedures Referred By Contac t Referred To Contact Diagnoses Left lumbar radiculopathy Spinal stenosis, lumbar region, without neurogenic claudication Lumbar spondylosis Procedures X-ray lumbar spine complete 4+ views Escobar Boone MD [address] [place] [address] Phone: tel: fax: [address] [phone] Referral ID Status Reason Start Date Expiration Date Visits Re quested Visits Authorized [id number] Closed 03/21/2023 04/19/2024 1 1 Reason for Visit * Diagnostic Imaging (Routine) - Closed Specialty Diagnoses / Procedures Referred By Contac t Referred To Contact Diagnoses Left lumbar radiculopathy Spinal stenosis, lumbar region, without neurogenic claudication Lumbar spondylosis Procedures X-ray lumbar spine complete 4+ views Escobar Boone MD [address] [place] [address] Phone: tel: fax: [address] [place] [address] Referral ID Status Reason Start Date Expiration Date Visits Re quested Visits Authorized [id number] Closed 03/21/2023 04/19/2024 1 1 Encounter Details Date Type Department Care Team (Latest Contact Info) Description 03/21/2023 9:38 AM CDT - 03/21/2023 11:59 PM CDT Hospital Encounter [id number] Radiology [address] [facility] [address] [place] [address] Left lumbar radiculopathy; Spinal stenosis, lumbar region, without neurogenic claudication; Lumbar spondylosis Discharge Disposition: Discharge to home or self care Social History Tobacco Use Types Packs/Day Years Used Date Smoking Tobacco: Never Alcohol Use Standard Drinks/Week Comments Yes 0 (1 standard drink = 0.6 oz pur e alcohol) Comments Unknown Sex and Gender Information Value Date Recorded Sex Assigned at Not on file Legal Sex Female 2:33 AM SOCIAL PSYCHOLOGIST Gender Identity Female 02/28/2021 6:37 AM CDT Sexual Orientation Straight 02/28/2021 6: 37 AM CDT documented as of this encounter Medications at Time of Discharge calcium citrate-vitamin D3 (CITRACAL WITH D) 315 mg-6.25 mcg (250 unit) per tablet Take 1 tablet by mouth daily EPINEPHrine 0.3 mg/0.3 mL auto-injection syringe epinephrine 0.3 mg/0.3 mL injection, auto-injector INJECT 0.3 MG IN THE MUSCLE EVERY 4 HOURS NEEDED FOR ANAPHYLAXIS flaxseed oil oil garlic 1 mg capsule Take by mouth multivitamin capsule Take 1 capsule by mouth daily mupirocin (BACTROBAN) 2 % ointment mupirocin 2 % topical ointment JAYLIN EXT AA TID omega-3 fatty acids-fish oil 300-1,000 mg capsule Take 2 g by mouth daily tacrolimus (Protopic) 0.1 % ointment Protopic 0.1 % topical ointment APPLY A THIN LAYER TO THE AFFECTED AREA(S) BY TOPICAL ROUTE 2 TIMES PER DAY ; RUB IN GENTLY AND COMPLETELY on the eyelids turmeric, bulk, 95 % powder rosuvastatin (CRESTOR) 5 mg tablet 03/19/2023 documented as of this encounter Discharge Disposition Disposition Code Departure Means Destination Discharge to home or self care documented in this encounter Miscellaneous Notes * Result Encounter Note - Escobar Boone MD - 03/21/2023 7:39 PM CDT X-rays today demonstrate arthritic changes consistent with prior MRI report. X- rays do not demonstrate evidence of additional concern. I recommend we follow through with our plan otherwise as discussed at the time of visit. documented in this encounter Plan of Treatment Not on file documented as of this encounter Procedures Procedure Name Priority Date/Time Associated Diagnosis Comments XR SPINE LUMBAR COMPLETE 4 OR MORE VIEWS Schedule Routine, Read Routine (OP Routine) 03/21/2023 9:49 AM CDT Left lumbar radiculopathy Spinal stenosis, lumbar region, without neurogenic claudication Lumbar spondylosis documented in this encounter Results * X-ray lumbar spine complete 4+ views [...] spondylosis without myelopathy documented in this encounter Care Teams Donor Services Team Leader Relationship Specialty Start Date End Date Panda Myrick MD [address] [facility] [address] [place] [address] PCP - General Family Medicine 04/16/19 documented as of this encounter
--- OUTSIDE RECORDS SUMMARY | 2024-12-17 04:01 | XMS_ITS | Clinical Summary ---
Author Organization [facility] Address [address] [place] [address] Care Team Providers Care Slate Roofer Name Role Phone Panda Myrick MD Primary Care Provider Allergies Active Allergy Reactions Criticality Noted Date Comments Amoxicillin Balsam [place] Unknown 03/08/2021 Allergy patch tested positive Benzalkonium Chloride Unknown 03/08/2021 Allergy patch tested positive Cetrimonium [place] Unknown 03/08/2021 Allergy patch tested positive [place] Chloride Unknown 03/08/2021 Allergy patch tested positive [...] pain 10/12/2019 Menometrorrhagia 10/12/2019 Osteochondritis dissecans 10/12/2019 Surgical History Surgery Date Site/Laterality Comments HAND SURGERY Medical History Medical History Date Comments Arthritis Family History Medical History Relation Name Comments Heart disease Mother Relation Name Status Comments Mother Social History Tobacco Use Types Packs/Day Years Used Date Smoking Tobacco: Never Alcohol Use Standard Drinks/Week Comments Yes 0 (1 standard drink = 0.6 oz pur e alcohol) Personal Safety Answer Date Recorded Getting School Help Needed Not on file 12/19 Comments Unknown Sex and Gender Information Value Date Recorded Sex Assigned at Not on file Legal Sex Female 2:33 AM IMPROVEMENT SPEC Gender Identity Female 02/28/2021 6:37 AM CDT Sexual Orientation Straight 02/28/2021 6: 37 AM CDT Obstetrics History Last Filed Vital Signs Vital Sign Reading Time Taken Comments Blood Pressure - - Pulse - - Temperature 36.4 ??C (97.5 ??F) 03/08/2021 10:35 AM C DT Respiratory Rate - - Oxygen Saturation - - Inhaled Oxygen Concentration - - Weight 54.9 kg (121 lb) 10/26/2019 9:52 AM IMPROVEMENT SPEC Height 170.2 cm (5' 7 ) 10/26/2019 9:52 AM IMPROVEMENT SPEC Body Mass Index 18.95 10/26/2019 9:52 AM IMPROVEMENT SPEC Plan of Treatment Health Maintenance Due Date Last Done Comments Breast Cancer Screening-Mammogram 1965 Cervical Cancer Screening 1965 Colon Cancer Screening-Colonoscopy 1965 Depression Screening 1963 Hepatitis C Screening 1963 Regular Well Visit/Exam 18-64 1981 Zoster Vaccine (1 of 2) 2013 Influenza Vaccine (#1) 2024 DTaP/Tdap/Td Vaccine (2 - Td or Tdap) 10/20/2028 10/20/2018 Pneumococcal vaccine <65 Aged Out No longer eligible based on patient's age to complete this topic Insurance [facility] [id number] [facility] Care Teams Slate Roofer Relationship Specialty Start Date End Date Panda Myrick MD [address] [address] PCP - General Family Medicine 04/16/19
--- OUTSIDE RECORDS SUMMARY | 2024-12-17 04:01 | XMS_ITS | Encounter Summary ---
Author Organization [facility] Address [address] [place] [address] Phone Care Team Providers Care Landscape Foreman Name Role Phone Panda Myrick MD Primary Care Provider Encounter Details Date Type Department Care Team (Late st Contact Info) Description 01/17/2021 Telephone [facility] Dermatology [address] [place] [address] [address] [place] [address] Juna Carlos Hilario MD [address] [place] [address] [address] [place] [address] Social History Tobacco Use Types Packs/Day Years Used Date Smoking Tobacco: Never Alcohol Use Standard Drinks/Week Comments Yes 0 (1 standard drink = 0.6 oz pur e alcohol) Comments Unknown Sex and Gender Information Value Date Recorded Sex Assigned at Not on file Legal Sex Female 2:33 AM FISHING BOAT CAPTAIN Gender Identity Female 02/28/2021 6:37 AM CDT Sexual Orientation Straight 02/28/2021 6: 37 AM CDT documented as of this encounter Miscellaneous Notes * Telephone Encounter - Jackie Hurtado RMA - 01/25/2021 2:42 PM CST Scheduled pt for 02/16 at noon ING BOAT CAPTAIN * Telephone Encounter - Galilea Diaz BS - 01/20/2021 1:05 PM FISHING BOAT CAPTAIN Ok to patch Informed pt that they may not hear for a few weeks Provided my number if they don't hear and want to check in ING BOAT CAPTAIN * Telephone Encounter - Galilea Diaz BS - 01/19/2021 8:17 AM FISHING BOAT CAPTAIN Taken prior to augusto review Dr hilario Patch 06[address] L25.9 [employer] [id number] Chanelle/alejandro@1:01@01/20/21 Ref#[id number] Medical necessity Ov $35copay then covered 100% No precert req No ded O/p 3000/ fam 6000/ ING BOAT CAPTAIN ING BOAT CAPTAIN ING BOAT CAPTAIN ING BOAT CAPTAIN * Telephone Encounter - Panda House - 01/17/2021 12:04 PM CST Patient wants to come in for a allergy test. ING BOAT CAPTAIN documented in this encounter Plan of Treatment Not on file documented as of this encounter Visit Diagnoses Not on filedocumented in this encounter Care Teams Landscape Foreman Relationship Specialty Start Date End Date Panda Myrick MD [address] [place] [address] PCP - General Family Medicine 04/16/19 documented as of this encounter
--- OUTSIDE RECORDS SUMMARY | 2024-12-17 04:01 | XMS_ITS | Encounter Summary ---
Author Organization [facility] Address [address] [place] [address] Phone Care Team Providers Care Health Care Aide Name Role Phone Panda Myrick MD Primary Care Provider Reason for Referral * Diagnostic Imaging (Routine) - Closed Specialty Diagnoses / Procedures Referred By Contac t Referred To Contact Radiology Diagnoses Chronic pain of left knee Procedures MRI Knee Left WO Contrast Adán Garza MD Phone: tel: fax: [address] [address] Referral ID Status Reason Start Date Expiration Date Visits Re quested Visits Authorized [id number] Closed 07/29/2019 10/27/2019 1 1 Encounter Details Date Type Department Care Team (Late st Contact Info) Description 07/23/2019 Orders Only [facility] Orthopaedic Surgery [address] [place] [address] Adán Garza MD [address] [place] [address] Chronic pain of left knee (Primary Dx) Social History Tobacco Use Types Packs/Day Years Used Date Smoking Tobacco: Never Comments Unknown Sex and Gender Information Value Date Recorded Sex Assigned at Not on file Legal Sex Female 2:33 AM ROD HANGER Gender Identity Female 02/28/2021 6:37 AM CDT Sexual Orientation Straight 02/28/2021 6: 37 AM CDT documented as of this encounter Plan of Treatment Not on file documented as of this encounter Results * MRI Knee Left WO Contrast (10/12/2019 1:18 PM ROD HANGER) Anatomical Region Laterality Modality Lower Extremities Left Magnetic Reson ance 10/12/2019 2:05 PM ROD HANGER Impressions 10/12/2019 2:07 PM ROD HANGER 1. ??[id number] subchondral insufficiency fracture of the posterior and [...] Danish Tavera M.D. Narrative 10/12/2019 2:07 PM ROD HANGER EXAMINATION: 1. MRI left knee without contrast [...] of the gastrocnemius and popliteus. IMPRESSION: 1. [id number] subchondral insufficiency fracture of the posterior and [...] by: Danish Tavera M.D. Adán Garza MD [facility] [place] PROCEDURES Final Result documented in this encounter Visit Diagnoses Diagnosis Chronic pain of left knee- Primary Chronic pain of left knee documented in this encounter Care Teams Health Care Aide Relationship Specialty Start Date End Date Panda Myrick MD [address] [facility] [address] [place] [address] PCP - General Family Medicine 04/16/19 documented as of this encounter
--- OUTSIDE RECORDS SUMMARY | 2024-12-17 04:01 | XMS_ITS | Encounter Summary ---
Author Organization [facility] Care Team Providers Care Urban Planner Name Role Phone Unavailable Primary Care Provider Unavailabl e Encounter Details Date Type Department Care Team (Late st Contact Info) Description 02/15/2009 - 02/15/2009 11:59 PM CDT Hospital Encounter [facility] Yousuf Chavez Follow-up examination, following other surgery; Nontraumatic rupture of flexor tendons of hand and wrist Social History Tobacco Use Types Packs/Day Years Used Date Smoking Tobacco: Never Assessed Comments Unknown Sex and Gender Information Value Date Recorded Sex Assigned at Not on file Legal Sex Female 2:33 AM INCLUSION SPECIALIST Gender Identity Female 02/28/2021 6:37 AM CDT Sexual Orientation Straight 02/28/2021 6: 37 AM CDT documented as of this encounter Plan of Treatment Not on file documented as of this encounter Visit Diagnoses Diagnosis Follow-up examination, following other surgery Nontraumatic rupture of flexor tendons of hand and wrist documented in this encounter
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
--- OUTSIDE RECORDS SUMMARY | 2024-12-17 04:01 | XMS_ITS | Encounter Summary ---
Author Organization [facility] Address [address] [place] [address] Phone Care Team Providers Care Polisher And Buffer Name Role Phone Panda Myrick MD Primary Care Provider Encounter Details Date Type Department Care Team (Late st Contact Info) Description 10/27/2019 Telephone [facility] Orthopaedic Surgery [address] [place] [phone] Leland Montana MS Social History Tobacco Use Types Packs/Day Years Used Date Smoking Tobacco: Never Alcohol Use Standard Drinks/Week Comments Yes 0 (1 standard drink = 0.6 oz pur e alcohol) Comments Unknown Sex and Gender Information Value Date Recorded Sex Assigned at Not on file Legal Sex Female 2:33 AM SENIOR DRAFTER Gender Identity Female 02/28/2021 6:37 AM CDT Sexual Orientation Straight 02/28/2021 6: 37 AM CDT documented as of this encounter Miscellaneous Notes * Telephone Encounter - Leland Montana MS - 10/27/2019 11:32 AM SENIOR DRAFTER Called Catarina Yaakov to notify her that the authorization for her OA knee brace cleared. She will call back to give answer on order. OR DRAFTER documented in this encounter Plan of Treatment Not on file documented as of this encounter Visit Diagnoses Not on filedocumented in this encounter Care Teams Polisher And Buffer Relationship Specialty Start Date End Date Panda Myrick MD [address] [facility] [address] [place] [address] PCP - General Family Medicine 04/16/19 documented as of this encounter
--- OUTSIDE RECORDS SUMMARY | 2024-12-17 04:01 | XMS_ITS | Encounter Summary ---
Author Organization [facility] Address [address] [place] [address] Phone Care Team Providers Care Rn Clinical Documentation Specialist Name Role Phone Panda Myrick MD Primary Care Provider Encounter Details Date Type Department Care Team (Late st Contact Info) Description 03/02/2021 11:30 AM CDT Office Visit [facility] Dermatology [address] [place] [address] [address] [place] [address] Juan Carlos Hilario MD [address] [place] [address] [address] [place], [place] [id number] Eczematous dermatitis of upper eyelids of both eyes (Primary Dx); Allergic contact dermatitis due to other agents Social History Tobacco Use Types Packs/Day Years Used Date Smoking Tobacco: Never Alcohol Use Standard Drinks/Week Comments Yes 0 (1 standard drink = 0.6 oz pur e alcohol) Comments Unknown Sex and Gender Information Value Date Recorded Sex Assigned at Not on file Legal Sex Female 2:33 AM WHARF TALLY CLERK Gender Identity Female 02/28/2021 6:37 AM CDT Sexual Orientation Straight 02/28/2021 6: 37 AM CDT documented as of this encounter Last Filed Vital Signs Vital Sign Reading Time Taken Comments Blood Pressure - - Pulse - - Temperature 36.3 ??C (97.4 ??F) 03/02/2021 11:24 AM C DT Respiratory Rate - - Oxygen Saturation - - Inhaled Oxygen Concentration - - Weight - - Height - - Body Mass Index - - documented in this encounter Progress Notes * Juan Carlos Hilario MD - 03/02/2021 11:30 AM CDT CC: see hpi HPI: Catarina Nuno presents today for evaluation of eczema flaring Ho eczema as a child and food allergies including ketchup but mostly cleared after , for last 15 years has had it on eyelids, itchy red ROS: Negative for fever, lymphadenopathy, weakness, chest pain, shortness of breath, weight loss PHYSICAL EXAM: Nesco scaly patches arms, slight erythema eyelids; back is clear Otherwise: GENERAL: Appears well. No acute distress. [...] abnormalities noted. EXTREMITIES (LUE): No abnormalities noted. Right lower extremity - no abnormalities noted Left lower extremity - no abnormalities noted DIGITS/NAILS: No cyanosis, clubbing, or nail abnormality. ASSESSMENT AND PLAN: Eyelid dermatitis - 15 years chronic suspect acd mostly upper but lower eyelids get puffy, swollen;if testing for acd is negative might need type 1 testing as well, perhaps airborne Allergic contact dermatitis Patch testing today; 80 allergens placed; Acds core series plus added hair product series 23 allergens for eyelid dermatitis Risks, side effects, limitations and expectations of patch testing were discussed including, but not limited to, possible: itching, discomfort, negative results, positive results that might not be relevant, positive results do not guarantee clinical improvement, negative results do not fully rule out allergic reactions, positive results might require changes in lifestyle and/or product use to improve rash, we do not test for all possible allergens and an allergy can still be cause of rash even though this test was negative, financial obligations related to test Juan Carlos Hilario MD documented in this encounter Plan of Treatment Not on file documented as of this encounter Visit Diagnoses Diagnosis Eczematous dermatitis of upper eyelids of both eyes- Primary Allergic contact dermatitis due to other agents documented in this encounter Care Teams Rn Clinical Documentation Specialist Relationship Specialty Start Date End Date Panda Myrick MD [address] [facility] [address] [place] [address] PCP - General Family Medicine 04/16/19 documented as of this encounter
--- OUTSIDE RECORDS SUMMARY | 2024-12-17 04:01 | XMS_ITS | Encounter Summary ---
Author Organization [facility] Address [address] [place] [address] Phone Care Team Providers Care Matcher Name Role Phone Panda Myrick MD Primary Care Provider Encounter Details Date Type Department Care Team (Late st Contact Info) Description 11/11/2019 Telephone [facility] Orthopaedic Surgery [address] [facility] [place] [phone] Leland Montana MS Social History Tobacco Use Types Packs/Day Years Used Date Smoking Tobacco: Never Alcohol Use Standard Drinks/Week Comments Yes 0 (1 standard drink = 0.6 oz pur e alcohol) Comments Unknown Sex and Gender Information Value Date Recorded Sex Assigned at Not on file Legal Sex Female 2:33 AM CARPENTER ASSISTANT INSTALLER Gender Identity Female 02/28/2021 6:37 AM CDT Sexual Orientation Straight 02/28/2021 6: 37 AM CDT documented as of this encounter Miscellaneous Notes * Telephone Encounter - Leland Montana MS - 11/11/2019 9:37 AM CARPENTER ASSISTANT INSTALLER Called pt on 11/11/2019 in regards to brace ordering. She stated on 10/27/2019 that she would like to check benefits then call back. Advised pt to call back to speak about order when she had chance. ENTER ASSISTANT INSTALLER documented in this encounter Plan of Treatment Not on file documented as of this encounter Visit Diagnoses Not on filedocumented in this encounter Care Teams Matcher Relationship Specialty Start Date End Date Panda Mryick MD [address] [facility] [address] [place] [address] PCP - General Family Medicine 04/16/19 documented as of this encounter
--- OUTSIDE RECORDS SUMMARY | 2024-12-17 04:01 | XMS_ITS | Encounter Summary ---
Author Organization [facility] Address [address] [place] [address] Phone Care Team Providers Care Flooring Professional Name Role Phone Panda Myrick MD Primary Care Provider Encounter Details Date Type Department Care Team (Late st Contact Info) Description 03/21/2022 Telephone [facility] Dermatology [address] [place] [address] [address] [place] [address] Juan Carlos Hilario MD [address] [place] [address] [address] [place] [address] Social History Tobacco Use Types Packs/Day Years Used Date Smoking Tobacco: Never Alcohol Use Standard Drinks/Week Comments Yes 0 (1 standard drink = 0.6 oz pur e alcohol) Comments Unknown Sex and Gender Information Value Date Recorded Sex Assigned at Not on file Legal Sex Female 2:33 AM MANAGER WASTEWATER Gender Identity Female 02/28/2021 6:37 AM CDT Sexual Orientation Straight 02/28/2021 6: 37 AM CDT documented as of this encounter Miscellaneous Notes * Telephone Encounter - Jackie Hurtado, A - 03/28/2022 2:06 PM CDT I spoke to pt and she did have patch testing done; allergy to Balsam Sandwich (liquors such as wine, beer, gin and vermouth). Pt wants to know can this come on all of a sudden-she has been able to drink these in the past? * Telephone Encounter - Jenny Hearn - 03/21/2022 8:19 AM CDT Patient was having allergic reactions to drinking alcohol on vacation recently and is scheduled forJuly. The reaction is happening again, now (swollen face, red) and she's asking if it's possible bonnie seen sooner. Phone # verified as [phone] Thanks! documented in this encounter Plan of Treatment Not on file documented as of this encounter Visit Diagnoses Not on filedocumented in this encounter Care Teams Flooring Professional Relationship Specialty Start Date End Date Panda Myrick MD [address] [facility] [address] [place] [address] PCP - General Family Medicine 04/16/19 documented as of this encounter
[2025-01-11 17:35] VITALS: BMI 19.5
--- NOTE | 2025-01-11 17:37 | SUR.PREOP ---
Report to the Outpatient Waiting Room, entrance under the green pavilion located off [facility], at time _0600__ on date __01/21/25__. Planned Procedure Time: ___729__.? Time changes happen often and if your time is changed the preop area will call you the afternoon before. - You and your visitor will be asked to self-screen and do not enter if you have any COVID symptoms. Please call surgeon if you need to reschedule. - A mask is optional within the hospital at this time. Patients may have clear liquids (water, carbonated beverages, clear teas, apple juice) until 3 hours prior to surgery with a maximum of 20 ounces. - No food from midnight until time of surgery and no smoking, or chewing tobacco (or any form of nicotine). No chewing gum, candy or mints. - Infants may have breast milk until 4 hours before surgery, formula 6 hours prior to surgery. - Children will be allowed to drink immediately following surgery.? If applicable, please bring a bottle or sippy cup to assist with drinking. Juice, water, soda, and popsicles are readily available.? For infants on formula, please bring formula the day of surgery.? Pacifiers are allowed. Take only the following medications with a SIP of water on the morning of surgery: NONE DO NOT STOP ANY OF YOUR OTHER PRESCRIPTION MEDICATIONS PRIOR TO SURGERY EXCEPT THE FOLLOWING Hold all vitamins and supplements for 3 days per anesthesiologist. Medications to discontinue per physician Atorvastatin, Ezetimbe, Protonix HOLD DOS Date to take last dose____Calcium, probiotics, multivitamin last dose on 01/17/25____ Please no make-up, nail luxembourgish, hairspray, perfume, deodorant, or body powder the day of surgery.? No jewelry (including any body piercings) or valuables the day of surgery, leave them at home.? Please take a shower or bath the night before, or the morning of, surgery with an antibacterial soap.? Wear comfortable, loose fitting clothing.? Children are encouraged to wear pajamas. - Jewelry must be removed prior to entering the operating room.? Rings and piercings that are not removed may be cut off. - The hospital will not accept responsibility for valuables.? - Please leave all valuables, including medications, at home the day of surgery. If you are going home after surgery, a licensed city driver must drive you home.? - NO public transportation without another adult if you receive anesthesia. - We recommend that an adult stay with you for 24 hours following discharge. - We also recommend that you do not drive, make important decision, drink alcoholic beverages, or take any drugs that were not prescribed by your health care provider for at least 24 hours after your discharge time. For Pediatric surgeries, we recommend two adults accompany the child home. Follow any additional instructions given to you from your surgeon. Telephone instructions given to __Catarina__and asked if any additional questions and then verbalized understanding. Patient advised to call surgeon office or pre surgery nurse liaison [phone] if any additional questions.
--- NOTE | 2025-01-19 08:44 | PM.IMHP ---
H&P: HPI History of Present Illness Date/Time: 01/19/25 08:44 59-year-old female presents with complaints of pelvic and abdominal bloating intermittently as well as postmenopausal bleeding approximately 6 months ago for ultrasound at that time revealed normal endometrial thickness and ovarian cyst. She has had no further bleeding, but the cyst has been followed and has remained. She has had a left cystadenoma which had been surgically removed in the past presents today for hysterectomy and right salpingo oophorectomy. Also of significance has had endometrial ablation in the past, as well as 3 vaginal deliveries. Chief Complaint: Adnexal mass Review of Systems Review of Systems: All systems reviewed & are unremarkable except as noted in HPI and below PMFSH Past Medical History Medical History CAD (coronary artery disease) Fracture of pelvis Anal skin tag Bright red blood per rectum Hyperlipidemia Lumbar spinal stenosis Screening mammogram, encounter for Acne Heart murmur GERD (gastroesophageal reflux disease) Rash Surgical History Surgical History S/P left oophorectomy (05/06/98) laparoscopic left oopherectomy / cystadenoma History of gynecological procedure (09/07/04) hscope EMB / Benign S/P tendon repair (10/22/08) finger tendon surgery S/P tendon repair (03/02/09) finger tendon surgery Hx of dilation and curettage (06/02/15) Hscope D&C/ Novasure Ablation Family History Family History Mother Heart disease Hypertension Embolism Sibling Alcohol abuse sister and brother Grandparent No problems noted. Other Breast cancer maternal aunt Social History Social History Smoking status: Never smoker Second hand tobacco smoke exposure: No Alcohol intake: never Drinks per week: 4 Alcohol use details: weekends Substance use: never Substance use type: does not use Do You Feel Safe in your Home?: Yes Lack of Transportation: No Lack of Food: Never True Current Housing: I Have Housing Concerned About Future Housing: No Difficulty Paying Gas/Electric Bills: No Difficulty Paying for Meds: No Currently Unemployed: No Education: Bachelor's Degree Difficulty w/ Childcare or Family Care: No Living arrangements: with family Additional living arrangements comments: spouse Occupation/Education: retired Additional occupation/education comments: [employer] of [employer] Gender identity (if verbalized by the patient): Female Sexual Orientation (if Verbalized by the Patient): Straight or Heterosexual Spiritual care concerns: No Meds Home Medications and Allergies Home Medications ?Medication ?Instructions ?Recorded ?Confirmed ?Type pimecrolimus 1 % topical cream 1 applic topical BID 02/01/21 01/18/25 History (Elidel) multivitamin 1 tablet PO DAILY 01/28/23 01/18/25 History atorvastatin 40 mg tablet 40 mg PO DAILY #30 tabs 05/01/23 01/18/25 Rx ezetimibe 10 mg tablet 10 mg PO DAILY #30 tabs 05/01/23 01/18/25 Rx Lactobacillus 1 cap PO DAILY 08/30/23 01/18/25 History acidophilus-Bifidobac.animalis 2.5 billion cell capsule (Daily Probiotic) pantoprazole 20 mg tablet,delayed 20 mg PO DAILY #30 tabs 03/09/24 01/18/25 Rx release epinephrine 0.3 mg/0.3 mL 0.3 mg (0.3 mL) IM ONCE PRN 04/24/24 01/18/25 Rx injection, auto-injector (Auvi-Q) anaphylaxis #2 ea pen needle, diabetic 31 gauge x #100 ea 01/18/25 01/18/25 Rx 3/16 (BD Ultra-Fine Mini Pen Needle) teriparatide 20 mcg/dose (600 20 mcg (0.08 mL) subcut DAILY 90 01/18/25 01/18/25 Rx mcg/2.4 mL) subcutaneous pen days #7.2 mL injector (Forteo) Allergies Allergy/AdvReac Type Severity Reaction Status Date / Time Sulfa (Sulfonamide Allergy Mild rash Verified 01/18/25 13:21 Antibiotics) sulfamethoxazole Allergy Mild rash Verified 01/18/25 13:21 erythromycin base Allergy Unknown throat Verified 01/18/25 13:21 swelling Penicillins Allergy Unknown rash Verified 01/18/25 13:21 sulfamethizole Allergy Unknown rash Verified 01/18/25 13:21 tetracycline Allergy Unknown Rash Verified 01/18/25 13:21 trimethoprim Allergy Unknown rash Verified 01/18/25 13:21 Exam Const: General: cooperative, healthy appearing and comfortable Resp: Effort & Inspection: normal respiratory effort Auscultation: clear to auscultation bilaterally Cardio: Rate: regular rate Rhythm: regular rhythm GI: Inspection: normal to inspection Auscultation: normal bowel sounds : External Female Exam: normal external appearance Speculum Exam - Vagina: normal appearance of the vagina Speculum Exam - Cervix: normal appearance of the cervix Bimanual exam- vagina & uterus: normal bimanual exam Bimanual Exam- Adnexa, other: Adnexal mass present ( Right adnexa 5cm slightly tender) Assessment and Plan Assessment and plan (1) Adnexal mass: Code(s): N94.89 - Other specified conditions associated with female genital organs and menstrual cycle Status: Acute (2) Postmenopausal bleeding: Code(s): N95.0 - Postmenopausal bleeding Status: Acute Plan 1. Robotic assisted laparoscopic total hysterectomy 2. Robotic assisted laparoscopic right salpingo oophorectomy ( has had previous left salpingo oophorectomy)
[2025-01-21] VITALS (13 sets, daily range): BP systolic 127–141; BP diastolic 75–89; PULSE 62–83; RESP 12–18; TEMP 36.1–36.9; O2SAT 95–100
--- OUTSIDE RECORDS SUMMARY | 2025-01-21 00:38 | XMS_ITS | Clinical Summary ---
Author Organization [facility] Address [address] [place] [address] Care Team Providers Care Science Professor Name Role Phone Panda Myrick MD Primary Care Provider Allergies Active Allergy Reactions Criticality Noted Date Comments Amoxicillin Balsam [place] Unknown 03/08/2021 Allergy patch tested positive Benzalkonium Chloride Unknown 03/08/2021 Allergy patch tested positive Cetrimonium [place] Unknown 03/08/2021 Allergy patch tested positive [place] Chloride Unknown 03/08/2021 Allergy patch tested positive [...] on file Legal Sex Female 2:33 AM FORMING PROCESS WORKER Gender Identity Female 02/28/2021 6:37 AM CDT [...] 54.9 kg (121 lb) 10/26/2019 9:52 AM FORMING PROCESS WORKER Height 170.2 cm (5' 7 ) 10/26/2019 9:52 AM FORMING PROCESS WORKER Body Mass Index 18.95 10/26/2019 9:52 AM FORMING PROCESS WORKER Plan of Treatment Health Maintenance Due Date [...] patient's age to complete this topic Insurance [employer] [facility] [id number] [facility] Care Teams Science Professor Relationship Specialty Start Date End Date Panda Myrick MD [address] [facility] [address] [place] [address] PCP - General Family Medicine 04/16/19
--- OUTSIDE RECORDS SUMMARY | 2025-01-21 00:38 | XMS_ITS | Referral Summary ---
Author Organization [facility] Address [address] [place] [address] Care Team Providers Care Psychology Intern Name Role Phone Panda Myrick MD Primary Care Provider Allergies Active Allergy Reactions Criticality Noted Date Comments Amoxicillin Balsam [place] Unknown 03/08/2021 Allergy patch tested positive Benzalkonium Chloride Unknown 03/08/2021 Allergy patch tested positive Cetrimonium [place] Unknown 03/08/2021 Allergy patch tested positive [place] Chloride Unknown 03/08/2021 Allergy patch tested positive [...] on file Legal Sex Female 2:33 AM CHILD PROTECTIVE INVESTIGATOR Gender Identity Female 02/28/2021 6:37 AM CDT Sexual Orientation Straight 02/28/2021 6: 37 AM CDT Last Filed Vital Signs Vital Sign Reading Time Taken Comments Blood Pressure - - Pulse - - Temperature 36.4 C (97.5 F) 03/08/2021 10:35 AM CDT Respiratory Rate - - Oxygen Saturation - - Inhaled Oxygen Concentration - - Weight 54.9 kg (121 lb) 10/26/2019 9:52 AM CHILD PROTECTIVE INVESTIGATOR Height 170.2 cm (5' 7 ) 10/26/2019 9:52 AM CHILD PROTECTIVE INVESTIGATOR Body Mass Index 18.95 10/26/2019 9:52 AM CHILD PROTECTIVE INVESTIGATOR Plan of Treatment Not on file Insurance [facility] [id number] [facility] [id number] [facility] Care Teams Psychology Intern Relationship Specialty Start Date End Date Panda Myrick MD [address] [place] [address] PCP - General Family Medicine 04/16/19
--- OUTSIDE RECORDS SUMMARY | 2025-01-21 00:38 | XMS_ITS | Data Portability ---
Author Organization [facility] Address [address], [address] [place] [address] Care Team Providers Care Research Nutritionist Name Role Phone VICKI TELLES Primary Care Provider [phone] Assessment Encounter Date Assessment Date Assessment LastModified [...] 0.1 % topical ointment 2020 021 [facility], [address] [place] [address], [place], [address], 11:23:50 Patient TargetsNo targets recorded. Patient Instructions Encounter Date Encounter Id Patient Instructions Last Modified By Organization Details Last Modified Time 01/17/2021 [id number] Topical steroids used around the eye may cause thinning of the skin, cataracts and glaucoma. Use only for a short time. Not available 01/17/2021 11:22:16 Reason for Referral None Reported. Problems Name Problem SNOMED Code Status Onset Date Resolution Date Notes Provider Name and Address Organization Details Recorded Time Allergic contact dermatitis 028632189 Active 03/[address] Hilario- positive Balsam hermila, nickel, cobalt chloride, oleamidopr opyl dimethylam ine, propolis, benzalkoni um chloride, cetrimoniu m bromide. Tennille Celestin MD [address] [facility], [address], [place], [address] [facility] Celestin MD 1 10:08:56 Problem Notes None recorded. Medical Equipment None Reported. Allergies Allergen ID Allergen Name Allergen Category Reaction Reaction Severity Criticality Documentation Date Start Date Code Code System Note Provider Name and Address Organization Details Recorded Time 6612 Product containin g penicilli n (product) medicatio n Not available Not available Not available 09/21/2021 89646 8001 SNOMED Kemal [facility] Sheffield MD 15:18:59 947 amoxicill in medicatio n Not available Not available Not available 04/16/2017 723 RxNorm [facility] Don MD 7 16:24:18 948 erythromy clara medicatio n Not available Not available Not available 04/17/2017 4053 RxNorm [facility] Don MD 7 11:57:59 949 sulfameth oxazole / trimethop rim medicatio n Not available Not available Not available 04/17/2017 72801 RxNorm [facility] Don MD 7 11:58:12 950 tetracycl ine medicatio n Not available Not available Not available 04/17/2017 81419 RxNorm [facility] Don MD 7 11:58:19 Medications [...] Not Avai lable pantoprazol e 20 mg tablet,imke yed release TAKE 1 TABLET BY MOUTH [...] COVID-19 While That Case Was Ill? No Information not available 01/17/2021 In The 14 Days Before Symptom Onset, Have You Had Close Contact With A Person Who Is Under Investigation For COVID-19 While That Person Was Ill? No [email or web address] Information not available 01/17/2021 Have You Been To An Area Known To Be High Risk For COVID-19? No [email or web address] Information not available 01/17/2021 Do You Or Have You Ever Used E-cigarettes Or Vape? Never Used Electronic Cigarettes [email or web address] Information not available 01/17/2021 Does Patient Have Any Fever, Cough, Sore Throat Or New Shortness Of Breath? No [email or web address] Information not available 01/17/2021 What Was The Date Of Your Most Recent Tobacco Screening? 01/17/2021 Information not available 01/17/2021 Do You Or Have You Ever Used Smokeless Tobacco? Never Used Smokeless Tobacco [email or web address] Information not available 01/17/2021 How Much Tobacco Do You Smoke? No [email or web address] Information not available 01/17/2021 Sun Exposure Occasional [...] available 2016 11:57:04 Medical History Condition Response Diabetes N Bleeding Disorder N Arthritis Y Hyperthyroidism N Defibrillator N Cancer N Stroke N Asthma N Hypothyroidism N Lupus N HIV/AIDS N Pacemaker N Anemia N Psoriasis N Hepatitis N Heart Disease Y Hypertension N Gynecological HistoryNo gynecological history recorded. Obstetrics History GPAL:G 0 P 0 0 0 0 Past Encounters Encounter ID Performer Location Encounter Start Date Encounter Closed Date Diagnosis/Indication Diagnosis SNOMED-CT Code Diagnosis ICD10 Code Diagnosis Note [id number] Tennille Celestin MD Main Office [address] [place] [phone] 7 04/16/2017 15:54:06 04/17/2017 23:52:23 Senile angioma 8736312 I78.1 Melanocyti c nevus of trunk 113503721 D22.5 Melanocyti c nevus of face 531821362 D22.30 Excoriation of skin 1244 44975 T14.8 [id number] Tennille Celestin MD Main Office [address] [place] [id number] 7 02/03/2018 14:31:56 02/03/2018 15:20:04 Lentigo 294820062 L81.4 Post-infla mmatory hyperpigmentation 659113339 L81.0 [id number] Tennille Celestin MD Main Office [address] [place] [address] 11658-188 7 01/17/2021 10:59:36 01/17/2021 11:48:35 Allergic contact dermatitis 225895679 L23.9 Hemangioma 506199760 D18 .00 Melanocyti c nevus of upper limb 041179234 D22.62 Melanocyti c nevus of skin of thigh 916093205 D22.72 [id number] Tennille Celestin MD Main Office [address] [place] [address] 68577-383 7 09/21/2021 15:06:29 09/21/2021 15:36:37 Telangiectasia of skin of face 116445503 I78.1 Milia 519790437 L72.0 Apocrine h idrocystoma of eyelid 433907786 D21.0 [id number] Tennille Celestin MD Main Office [address] [place] [address] [phone] 7 03/05/2023 11:05:47 03/05/2023 11:45:51 Scar 115616469 L90.5 Melanocyti c nevus of trunk 598418818 D22.5 Hemangioma of skin 64052 006 D18.01 Benign kenyon plasm of skin of upper limb 41794160 D23.61 [id number] Tennille Celestin MD Main Office [address] [facility] [address] [place] [address] 06/23/2024 10:31:59 06/23/2024 11:37:57 Neoplasm of uncertain behavior of skin 89130288 D48.5 Hemangioma of skin 67860 006 D18.01 Health Concerns Section Related Observation LastModified by Organization Detai ls LastModified Time None Recorded Concern Status LastModified by Organization Details LastModified Time None Recorded Advance Directives Directive None Recorded Payers Encounter Date Sequence Insurance Name Policy Number Policy Keane Covered Member ID Keane Member ID Guarantor Name 02/03/2018 1 [employer] (POS) [id number] Catarina L Modesitt [id number] Catarina Modesitt 01/17/2021 1 [employer] - DOS PRIOR TO 21 - [facility] [employer]ITS PLAN Catarina Modesitt [id number] Catarina Modesitt 09/21/2021 1 [employer] - DOS PRIOR TO 21 - [facility] [employer] [id number] Catarina Modesitt [id number] SOI Catarina Modesitt 03/05/2023 1 [employer] - [facility] [employer] Catarina Modesitt [id number] SOI Catarina Modesitt 06/23/2024 1 *SELF PAY* Florian payal Modesitt Notes Date Note Type Note Provider Name and Address Organization Details Recorded Time 02/03/2018 text/html spots on facex 4 monthsraised bumpssoftthe one on the L cheek is a lot smaller than before brown spots on the forehead Tennille Celestin MD [address] [facility], [address], [place], [address], [facility] - Tennille Celestin MD 02/09/2018 15:40:27 01/17/2021 [...] and Corrina 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 Tennille Celestin MD [address] [facility], [address], [place], [address], [facility] Presley Celestin MD 01/22/2021 20:59:13 09/21/2021 text/html COVID-19 [...] the tear duct Tennille Celestin MD [address] [facility], [address], [place], [address], [facility] Presley Celestin MD 09/21/2021 23:08:47 03/05/2023 text/html COVID-19 [...] want to heal. Tennille Celestin MD [address] [facility], [address], [place], [address], [facility] Cel[facility] MD 03/10/2023 22:26:53 06/23/2024 text/html Full body skin c heck Spot corner R eyex 1 weekgetting betterburns when patient puts eye cream on area, small bumpuses eye cream for areashe is concerned as a friend had a skin cancer in this location no other bleeding spots, changing moles, or sores that don't want to heal. Tennille Celestin MD [address] [facility], [address], [place], [address], [facility] Celestin MD 06/23/2024 22:14:57 OBGyn Episode No OBEpisode recorded.
--- OUTSIDE RECORDS SUMMARY | 2025-01-21 00:38 | XMS_ITS | Data Portability ---
Author Organization [place] [facility] [employer], Main Office Address [address] [place] [address] Assessment No assessment recorded. Plan of Treatment Reminders Order Date Submit Date Provider Last Modified By Organization Details Last Modified Time Details Appointments None recorded. Lab CMP, serum or plasma 2022 023 [facility], [place], [address], 3 13:01:43 vitamin D, 25-hydroxy , total, serum 2022 023 [facility], [place], [address], 3 13:01:46 phosphorus , serum or plasma 2022 023 [facility], [place], [address], 3 13:01:43 TSH + free T4, serum 2022 023 [facility], [place], [address], 3 13:01:46 cortisol, am, serum 2022 023 [employer] [facility], [place], [address], 3 13:01:45 dexamethas one, serum 2022 023 [employer] [facility], [address], [place], [address], 3 13:01:44 PTH (parathyro id hormone), intact + calcium, serum or plasma 2022 023 [employer] [facility], [address], [place], [address], 3 13:01:42 Referral endocrinol ogy referral 2022 023 [facility] MD, [address],, [facility], [place], [address], 3 13:00:55 Procedures None recorded. Surgeries None recorded. Imaging None recorded. Medication Orders dexamethas one 1 mg tablet 2022 023 [id number], [address] [facility], [place], [place], [id number], 3 12:52:12 Patient TargetsNo targets recorded. Patient [...] Care in Diabe vazquez(A DA). Not Available [employer] [address] [address] [place], [address], 03/16/2022 17:46:35 03/15/20 22 03/16/2022 VITAM IN [...] /MS is recom te d: order code 15480 (jermaine ents >2yrs ). See Note 1 Note 1 For addit ional infor emily zapata refer to http: //adriel Ramos stDia gnost ics.c om/fa q/FAQ 199 (This link is being provi ded for infor mirian may/ darlin gamez purpo ses only. ) Not Available [facility] [address], [place], [address], 03/16/2022 17:46:34 03/15/20 22 03/16/2022 INSUL IN [...] (dete haley, gluli sine) . Not Available [employer] [address] [address] [place], [address], 03/16/2022 17:46:32 03/15/20 22 03/16/2022 COMPR EHENS DELFINO METAB OLIC PANEL glucose 94 mg/dL 65-99 normal Fasti ng refer ence inter dionne Not Available [employer] [address] [place], [address], 03/16/2022 17:46:31 03/15/20 22 03/16/2022 COMPR EHENS DELFINO METAB OLIC PANEL urea nitrogen (BUN) 14 mg/dL 7-25 normal Not Available [employer] [address], [address], 03/16/2022 17:46:31 03/15/20 22 03/16/2022 COMPR EHENS DELFINO METAB OLIC PANEL creatinine 0.49 mg/dL 0.50-1 .05 low For patie nts >49 years of age, the refer ence limit for Creat inine is appro ximat mirna 13% highe r for peopl e ident ified as Afric an-Am shruthi n. Not Available [employer] [address], [address], 03/16/2022 17:46:31 03/15/20 22 03/16/2022 COMPR EHENS DELFINO METAB OLIC PANEL eGFR non-afr. serbian 107 mL/mi n/1.7 3m2 > or = 60 normal Not Available [employer] [facility] [place], [address], 03/16/2022 17:46:31 03/15/20 22 03/16/2022 COMPR EHENS DELFINO METAB OLIC PANEL eGFR 124 mL/mi n/1.7 3m2 > or = 60 normal Not Available [address], [address], 03/16/2022 17:46:31 03/15/20 22 03/16/2022 COMPR EHENS DELFINO METAB OLIC PANEL BUN/creatini ne ratio 29 (calc ) 6-22 high Not Available [address], [address], 03/16/2022 17:46:31 03/15/20 22 03/16/2022 COMPR EHENS DELFINO METAB OLIC PANEL sodium 139 mmol/ L 135-14 6 normal Not Available [address], [address], 03/16/2022 17:46:31 03/15/20 22 03/16/2022 COMPR EHENS DELFINO METAB OLIC PANEL potassium 4.5 mmol/ L 3.5-5. 3 normal Not Available [address], [address], 03/16/2022 17:46:31 03/15/20 22 03/16/2022 COMPR EHENS DELFINO METAB OLIC PANEL chloride 103 mmol/ L 98-110 normal Not Available [address], [address], 03/16/2022 17:46:31 03/15/20 22 03/16/2022 COMPR EHENS DELFINO METAB OLIC PANEL carbon dioxide 28 mmol/ L 20-32 normal Not Available [address], [address], 03/16/2022 17:46:31 03/15/20 22 03/16/2022 COMPR EHENS DELFINO METAB OLIC PANEL calcium 9.5 mg/dL 8.6-10 .4 normal Not Available [address], [address], 03/16/2022 17:46:31 03/15/20 22 03/16/2022 COMPR EHENS DELFINO METAB OLIC PANEL protein, total 6.8 g/dL 6.1-8. 1 normal Not Available [address], [address], 03/16/2022 17:46:31 03/15/20 22 03/16/2022 COMPR EHENS DELFINO METAB OLIC PANEL albumin 4.6 g/dL 3.6-5. 1 normal Not Available [address], [address], 03/16/2022 17:46:31 03/15/20 22 03/16/2022 COMPR EHENS DELFINO METAB OLIC PANEL globulin 2.2 g/dL_ (calc ) 1.9-3. 7 normal Not Available [address], [address], 03/16/2022 17:46:31 03/15/20 22 03/16/2022 COMPR EHENS DELFINO METAB OLIC PANEL albumin/glob ulin ratio 2.1 (calc ) 1.0-2. 5 normal Not Available [address], [address], 03/16/2022 17:46:31 03/15/20 22 03/16/2022 COMPR EHENS DELFINO METAB OLIC PANEL bilirubin, total 0.5 mg/dL 0.2-1. 2 normal Not Available [address], [address], 03/16/2022 17:46:31 03/15/20 22 03/16/2022 COMPR EHENS DELFINO METAB OLIC PANEL alkaline phosphatase 82 U/L 37-153 normal Not Available [address] [address] [place], [address], 03/16/2022 17:46:31 03/15/20 22 03/16/2022 COMPR EHENS DELFINO METAB OLIC PANEL AST 23 U/L 10-35 normal Not Available [address], [address], 03/16/2022 17:46:31 03/15/20 22 03/16/2022 COMPR EHENS DELFINO METAB OLIC PANEL ALT 19 U/L 6-29 normal Not Available [address], [address], 03/16/2022 17:46:31 03/15/20 22 03/16/2022 PHOSP HATE ( PHOSP HORUS ) phosphate ( phosphorus) 4.2 mg/dL 2.5-4. 5 normal Not Available [address], [address], 03/16/2022 17:46:29 03/15/20 22 03/16/2022 LIPID PANEL , STAND COLE cholesterol, total 228 mg/dL <200 high Not Available [address], [address], 03/16/2022 17:46:28 03/15/20 22 03/16/2022 LIPID PANEL , STAND COLE HDL cholesterol 72 mg/dL > or = 50 normal Not Available [address], [address], 03/16/2022 17:46:28 03/15/20 22 03/16/2022 LIPID PANEL , STAND COLE triglyceride s 72 mg/dL <150 normal Not Available [address], [address], 03/16/2022 17:46:28 03/15/20 22 03/16/2022 LIPID PANEL [...] 310(1 9): 2061- 2068 (http ://ed ucati on.[employer]. com/f aq/FA Q164) Not Available [employer] [address] [place], [address], 03/16/2022 17:46:28 03/15/20 22 03/16/2022 LIPID PANEL , STAND COLE chol/HDLC ratio 3.2 (calc ) <5.0 normal Not Available [employer] [facility] [address] [place], [address], 03/16/2022 17:46:28 03/15/20 22 03/16/2022 LIPID PANEL , STAND COLE non HDL cholesterol 156 mg/dL _(shana c) <130 high For patie nts with diabe vazquez plus 1 major ASCVD risk facto r, treat ing to a non-H DL-C goal of <100 mg/dL (LDL- C of <70 mg/dL ) is consi dered a thera pekassi c optio n. Not Available [facility] [address] [place], [address], 03/16/2022 17:46:28 03/15/2003/16/2022 PTH, INTAC T AND [...] or Low Caron l High Not Available [facility] [address] [place], [address], 03/16/2022 17:46:26 03/15/20 22 03/16/2022 PTH, INTAC T AND CALCI UM calcium 9.5 mg/dL 8.6-10 .4 normal Not Available [facility] [address] [place], [address], 03/16/2022 17:46:26 10/11/20 22 10/12/2022 HEMOG LOBIN [...] with a decre ased risk of diabe vzaquez. Curre ntly, no conse nsus exist s [...] Care in Diabe vazquez(A DA). Not Available [employer] [facility] [address] [place], [address], 10/12/2022 14:49:14 11/10/20 22 10/12/2022 VITAM IN [...] /MS is recom te d: order code 49575 (jermaine ents >2yrs ). See Note 1 Note 1 For addit ional infor emily zapata e refer to http: //[facility] yovani Francisia gnost ics.c om/fa q/FAQ 199 (This link is being provi ded for infor mirian may/ darlin gamez purpo ses only. ) Not Available [address] [address] [place], [address], 10/12/2022 14:49:13 10/11/20 22 10/12/2022 COMPR EHENS DELFINO METAB OLIC PANEL glucose 88 mg/dL 65-99 normal Fasti ng refer ence inter dionne Not Available [address] [address] [place], [address], 10/12/2022 14:49:13 10/11/20 22 10/12/2022 COMPR EHENS DELFINO METAB OLIC PANEL urea nitrogen (BUN) 19 mg/dL 7-25 normal Not Available [address], [address], 10/12/2022 14:49:13 10/11/20 22 10/12/2022 COMPR EHENS DELFINO METAB OLIC PANEL creatinine 0.59 mg/dL 0.50-1 .03 normal Not Available [address], [address], 10/12/2022 14:49:13 10/11/20 22 10/12/2022 COMPR EHENS [...] kdoqi /gfr% 5Fcal culat or Not Available [address], [address], 10/12/2022 14:49:13 10/11/20 22 10/12/2022 COMPR EHENS DELFINO METAB OLIC PANEL BUN/creatini ne ratio not applic able (calc ) 6-22 Not Available [address] [address] [place], [address], 10/12/2022 14:49:13 10/11/20 22 10/12/2022 COMPR EHENS DELFINO METAB OLIC PANEL sodium 138 mmol/ L 135-14 6 normal Not Available [address], [address], 10/12/2022 14:49:13 10/11/20 22 10/12/2022 COMPR EHENS DELFINO METAB OLIC PANEL potassium 4.2 mmol/ L 3.5-5. 3 normal Not Available [address] [address] [place], [address], 10/12/2022 14:49:13 10/11/20 22 10/12/2022 COMPR EHENS DELFINO METAB OLIC PANEL chloride 103 mmol/ L 98-110 normal Not Available [address] [address] [place], [address], 10/12/2022 14:49:13 10/11/20 22 10/12/2022 COMPR EHENS DELFINO METAB OLIC PANEL carbon dioxide 29 mmol/ L 20-32 normal Not Available [address], [address], 10/12/2022 14:49:13 10/11/20 22 10/12/2022 COMPR EHENS DELFINO METAB OLIC PANEL calcium 9.3 mg/dL 8.6-10 .4 normal Not Available [address], [address], 10/12/2022 14:49:13 10/11/20 22 10/12/2022 COMPR EHENS DELFINO METAB OLIC PANEL protein, total 6.2 g/dL 6.1-8. 1 normal Not Available [address], [address], 10/12/2022 14:49:13 10/11/20 22 10/12/2022 COMPR EHENS DELFINO METAB OLIC PANEL albumin 4.3 g/dL 3.6-5. 1 normal Not Available [address], [address], 10/12/2022 14:49:13 10/11/20 22 10/12/2022 COMPR EHENS DELFINO METAB OLIC PANEL globulin 1.9 g/dL_ (calc ) 1.9-3. 7 normal Not Available [address], [address], 10/12/2022 14:49:13 10/11/20 22 10/12/2022 COMPR EHENS DELFINO METAB OLIC PANEL albumin/glob ulin ratio 2.3 (calc ) 1.0-2. 5 normal Not Available [address], [address], 10/12/2022 14:49:13 10/11/20 22 10/12/2022 COMPR EHENS DELFINO METAB OLIC PANEL bilirubin, total 0.5 mg/dL 0.2-1. 2 normal Not Available [address] [address] [place], [address], 10/12/2022 14:49:13 10/11/20 22 10/12/2022 COMPR EHENS DELFINO METAB OLIC PANEL alkaline phosphatase 77 U/L 37-153 normal Not Available [facility] [employer] [address] [address] [place], [address], 10/12/2022 14:49:13 10/11/20 22 10/12/2022 COMPR EHENS DELFINO METAB OLIC PANEL AST 19 U/L 10-35 normal Not Available [address] [address] [place], [address], 10/12/2022 14:49:13 10/11/20 22 10/12/2022 COMPR EHENS DELFINO METAB OLIC PANEL ALT 17 U/L 6-29 normal Not Available [address] [address] [place], [address], 10/12/2022 14:49:13 10/11/20 22 10/12/2022 PHOSP HATE ( PHOSP HORUS ) phosphate ( phosphorus) 4.3 mg/dL 2.5-4. 5 normal Not Available [address] [address] [place], [address], 10/12/2022 14:49:12 10/11/20 22 10/12/2022 LIPID PANEL [...] 9): 2061- 2068 (http ://ed ucati on.Sigrid juaresNongxiang [employer]. com/f aq/FA Q164) Not Available [address] [address] [place], [address], 10/12/2022 14:49:12 10/11/20 22 10/12/2022 LIPID PANEL , STAND COLE cholesterol, total 219 mg/dL <200 high Not Available [address] [address] [place], [address], 10/12/2022 14:49:12 10/11/20 22 10/12/2022 LIPID PANEL , STAND COLE HDL cholesterol 62 mg/dL > or = 50 normal Not Available [address], [address], 10/12/2022 14:49:12 10/11/20 22 10/12/2022 LIPID PANEL , STAND COLE triglyceride s 92 mg/dL <150 normal Not Available [address], [address], 10/12/2022 14:49:12 10/11/20 22 10/12/2022 LIPID PANEL , STAND COLE chol/HDLC ratio 3.5 (calc ) <5.0 normal Not Available [address] [address] [place], [address], 10/12/2022 14:49:12 10/11/20 22 10/12/2022 LIPID PANEL , STAND COLE non HDL cholesterol 157 mg/dL _(shana c) <130 high For patie nts with diabe vazquez plus 1 major ASCVD risk facto r, treat ing to a non-H DL-C goal of <100 mg/dL (LDL- C of <70 mg/dL ) is consi dered a noemía perebekahi c optio n. Not Available [address] [address] [place], [address], 10/12/2022 14:49:12 10/11/20 22 10/12/2022 PTH, INTAC [...] or Low Caron l High Not Available [employer] [facility] [id number] [place], [place] [address], [address], 10/12/2022 14:49:11 10/11/20 22 10/12/2022 PTH, INTAC T AND CALCI UM calcium 9.3 mg/dL 8.6-10 .4 normal Not Available [employer] [facility] [address] [place], [place] [address], [address], 10/12/2022 14:49:11 03/07/20 23 03/08/2023 PTH, INTAC [...] or Low Caron l High Not Available [employer] [facility] [address] [place], [address], 03/08/2023 04:32:48 03/07/20 23 03/08/2023 PTH, INTAC T AND CALCI UM calcium 9.7 mg/dL 8.6-10 .4 normal Not Available [address] [address] [place], [address], 03/08/2023 04:32:48 03/07/20 23 03/08/2023 LIPID PANEL , STAND COLE cholesterol, total 259 mg/dL <200 high Not Available [facility] [address] [address] [place], [address], 03/08/2023 04:32:49 03/07/20 23 03/08/2023 LIPID PANEL , STAND COLE HDL cholesterol 81 mg/dL > or = 50 normal Not Available [address] [address] [place], [address], 03/08/2023 04:32:49 03/07/20 23 03/08/2023 LIPID PANEL , STAND COLE triglyceride s 116 mg/dL <150 normal Not Available [facility] [address] [address] [place], [address], 03/08/2023 04:32:49 03/07/20 23 03/08/2023 LIPID PANEL [...] 2061- 2068 (http ://ed ucati on.[employer]. com/f aq/FA Q164) Not Available [facility] [address] [address] [place], [address], 03/08/2023 04:32:49 03/07/20 23 03/08/2023 LIPID PANEL , STAND COLE chol/HDLC ratio 3.2 (calc ) <5.0 normal Not Available [address] [place], [address], 03/08/2023 04:32:49 03/07/20 23 03/08/2023 LIPID PANEL , STAND COLE non HDL cholesterol 178 mg/dL _(shana c) <130 high For patie nts with diabe vazquez plus 1 major ASCVD risk facto r, treat ing to a non-H DL-C goal of <100 mg/dL (LDL- C of <70 mg/dL ) is consi kym guajardo optio n. Not Available [address] [address] [place], [address], 03/08/2023 04:32:49 03/07/2003/08/2023 PHOSP HATE ( PHOSP HORUS ) phosphate ( phosphorus) 3.5 mg/dL 2.5-4. 5 normal Not Available [address] [address] [place], [address], 03/08/2023 04:32:50 03/07/20 23 03/08/2023 COMPR EHENS DELFINO METAB OLIC PANEL glucose 89 mg/dL 65-99 normal Fasti ng refer ence inter dionne Not Available [address], [address], 03/08/2023 04:32:50 03/07/20 23 03/08/2023 COMPR EHENS DELFINO METAB OLIC PANEL urea nitrogen (BUN) 14 mg/dL 7-25 normal Not Available [address], [address], 03/08/2023 04:32:50 03/07/20 23 03/08/2023 COMPR EHENS DELFINO METAB OLIC PANEL creatinine 0.58 mg/dL 0.50-1 .05 normal Not Available [facility] [address] [address], [place], [address], 03/08/2023 04:32:50 03/07/20 23 03/08/2023 COMPR EHENS [...] kdoqi /gfr% 5Fcal culat or Not Available [address], [address], 03/08/2023 04:32:50 03/07/20 23 03/08/2023 COMPR EHENS DELFINO METAB OLIC PANEL BUN/creatini ne ratio NOT APPLIC ABLE (calc ) 6-22 Not Available [address], [address], 03/08/2023 04:32:50 03/07/20 23 03/08/2023 COMPR EHENS DELFINO METAB OLIC PANEL sodium 139 mmol/ L 135-14 6 normal Not Available [address], [address], 03/08/2023 04:32:50 03/07/20 23 03/08/2023 COMPR EHENS DELFINO METAB OLIC PANEL potassium 4.1 mmol/ L 3.5-5. 3 normal Not Available [address], [address], 03/08/2023 04:32:50 03/07/20 23 03/08/2023 COMPR EHENS DELFINO METAB OLIC PANEL chloride 103 mmol/ L 98-110 normal Not Available [address], [address], 03/08/2023 04:32:50 03/07/20 23 03/08/2023 COMPR EHENS DELFINO METAB OLIC PANEL carbon dioxide 26 mmol/ L 20-32 normal Not Available [address], [address], 03/08/2023 04:32:50 03/07/20 23 03/08/2023 COMPR EHENS DELFINO METAB OLIC PANEL calcium 9.7 mg/dL 8.6-10 .4 normal Not Available [address], [address], 03/08/2023 04:32:50 03/07/20 23 03/08/2023 COMPR EHENS DELFINO METAB OLIC PANEL protein, total 6.8 g/dL 6.1-8. 1 normal Not Available [address], [address], 03/08/2023 04:32:50 03/07/20 23 03/08/2023 COMPR EHENS DELFINO METAB OLIC PANEL albumin 4.5 g/dL 3.6-5. 1 normal Not Available [address], [address], 03/08/2023 04:32:50 03/07/20 23 03/08/2023 COMPR EHENS DELFINO METAB OLIC PANEL globulin 2.3 g/dL_ (calc ) 1.9-3. 7 normal Not Available [address], [address], 03/08/2023 04:32:50 03/07/20 23 03/08/2023 COMPR EHENS DELFINO METAB OLIC PANEL albumin/glob ulin ratio 2.0 (calc ) 1.0-2. 5 normal Not Available [address], [address], 03/08/2023 04:32:50 03/07/20 23 03/08/2023 COMPR EHENS DELFINO METAB OLIC PANEL bilirubin, total 0.5 mg/dL 0.2-1. 2 normal Not Available [address] [address] [place], [address], 03/08/2023 04:32:50 03/07/20 23 03/08/2023 COMPR EHENS DELFINO METAB OLIC PANEL alkaline phosphatase 74 U/L 37-153 normal Not Available [address] [address] [place], [address], 03/08/2023 04:32:50 03/07/20 23 03/08/2023 COMPR EHENS DELFINO METAB OLIC PANEL AST 24 U/L 10-35 normal Not Available [address] [address] [place], [address], 03/08/2023 04:32:50 03/07/20 23 03/08/2023 COMPR EHENS DELFINO METAB OLIC PANEL ALT 18 U/L 6-29 normal Not Available [address] [address] [place], [address], 03/08/2023 04:32:50 03/07/20 23 03/08/2023 VITAM IN [...] /MS is recom te d: order code 45016 (jermaine ents >2yrs ). See Note 1 Note 1 For addit ional infor emily zapata refer to http: //adriel Christensen gnost ics.c om/fa q/FAQ 199 (This link is being provi ded for infor matshaina nal/ educa jesica l purpo ses only. ) Not Available [employer] [facility] [address] [place], [address], 03/08/2023 04:32:50 03/07/20 23 03/08/2023 HEMOG LOBIN [...] Care in Diabe vazquez(A DA). Not Available [facility] [address] [place], [address], 03/08/2023 04:32:51 04/02/20 23 04/10/2023 PTH, INTAC [...] or Low Caron l High Not Available [address], [address], 04/10/2023 13:01:42 04/02/20 23 04/10/2023 PTH, INTAC T AND CALCI UM calcium 9.6 mg/dL 8.6-10 .4 normal Not Available [address], [address], 04/10/2023 13:01:42 04/02/20 23 04/10/2023 PHOSP HATE ( PHOSP HORUS ) phosphate ( phosphorus) 3.6 mg/dL 2.5-4. 5 normal Not Available [address], [address], 04/10/2023 13:01:42 04/02/20 23 04/10/2023 COMPR EHENS DELFINO METAB OLIC PANEL glucose 89 mg/dL 65-99 normal Fasti ng refer ence inter dionne Not Available [address], [address], 04/10/2023 13:01:43 04/02/20 23 04/10/2023 COMPR EHENS DELFINO METAB OLIC PANEL urea nitrogen (BUN) 13 mg/dL 7-25 normal Not Available [address], [address], 04/10/2023 13:01:43 04/02/20 23 04/10/2023 COMPR EHENS DELFINO METAB OLIC PANEL creatinine 0.57 mg/dL 0.50-1 .05 normal Not Available [address], [address], 04/10/2023 13:01:43 04/02/20 23 04/10/2023 COMPR EHENS [...] kdoqi /gfr% 5Fcal culat or Not Available [address] [address] [place], [address], 04/10/2023 13:01:43 04/02/20 23 04/10/2023 COMPR EHENS DELFINO METAB OLIC PANEL BUN/creatini ne ratio NOT APPLIC ABLE (calc ) 6-22 Not Available [address], [address], 04/10/2023 13:01:43 04/02/20 23 04/10/2023 COMPR EHENS DELFINO METAB OLIC PANEL sodium 138 mmol/ L 135-14 6 normal Not Available [address] [address] [place], [address], 04/10/2023 13:01:43 04/02/20 23 04/10/2023 COMPR EHENS DELFINO METAB OLIC PANEL potassium 4.1 mmol/ L 3.5-5. 3 normal Not Available [address], [address], 04/10/2023 13:01:43 04/02/20 23 04/10/2023 COMPR EHENS DELFINO METAB OLIC PANEL chloride 102 mmol/ L 98-110 normal Not Available [facility] [address] [address] [place], [address], 04/10/2023 13:01:43 04/02/20 23 04/10/2023 COMPR EHENS DELFINO METAB OLIC PANEL carbon dioxide 27 mmol/ L 20-32 normal Not Available [address] [address] [place], [address], 04/10/2023 13:01:43 04/02/20 23 04/10/2023 COMPR EHENS DELFINO METAB OLIC PANEL calcium 9.6 mg/dL 8.6-10 .4 normal Not Available [address], [address], 04/10/2023 13:01:43 04/02/20 23 04/10/2023 COMPR EHENS DELFINO METAB OLIC PANEL protein, total 7.0 g/dL 6.1-8. 1 normal Not Available [address], [address], 04/10/2023 13:01:43 04/02/20 23 04/10/2023 COMPR EHENS DELFINO METAB OLIC PANEL albumin 4.7 g/dL 3.6-5. 1 normal Not Available [address], [address], 04/10/2023 13:01:43 04/02/20 23 04/10/2023 COMPR EHENS DELFINO METAB OLIC PANEL globulin 2.3 g/dL_ (calc ) 1.9-3. 7 normal Not Available [address], [address], 04/10/2023 13:01:43 04/02/20 23 04/10/2023 COMPR EHENS DELFINO METAB OLIC PANEL albumin/glob ulin ratio 2.0 (calc ) 1.0-2. 5 normal Not Available [address], [address], 04/10/2023 13:01:43 04/02/20 23 04/10/2023 COMPR EHENS DELFINO METAB OLIC PANEL bilirubin, total 0.7 mg/dL 0.2-1. 2 normal Not Available [address], [address], 04/10/2023 13:01:43 04/02/20 23 04/10/2023 COMPR EHENS DELFINO METAB OLIC PANEL alkaline phosphatase 72 U/L 37-153 normal Not Available [facility] [employer] [address] [address] [place], [address], 04/10/2023 13:01:43 04/02/20 23 04/10/2023 COMPR EHENS DELFINO METAB OLIC PANEL AST 24 U/L 10-35 normal Not Available [facility] [address] [address] [place], [address], 04/10/2023 13:01:43 04/02/20 23 04/10/2023 COMPR EHENS DELFINO METAB OLIC PANEL ALT 19 U/L 6-29 normal Not Available [address], [address], 04/10/2023 13:01:43 04/02/2004/10/2023 DEXAM ETHAS ONE dexamethason [...] purpo ses. Not Available [facility] [employer] [place] [address] [place], [address], 04/10/2023 13:01:44 04/02/2004/10/2023 CORTI LAURA, A.M. cortisol, A.M. 9.3 mcg/d L normal Refer ence Range 8 a.m. (7-9 a.m.) Speci men: 4.0-2 2.0 Not Available [employer] [place] [address] [place], [address], 04/10/2023 13:01:45 04/02/20 23 04/10/2023 VITAM IN [...] /MS is recom te d: order code 83898 (jermaine ents >2yrs ). See Note 1 Note 1 For addit ional infor emily zapata e refer to http: //[facility] yovani Christensen [employer].c om/fa q/FAQ 199 (This link is being provi ded for infor mirian may/ educdavin gamez purpo ses only. ) Not Available [employer] [place] [address] [place], [address], 04/10/2023 13:01:46 04/02/20 23 04/10/2023 TSH+F REE T4 TSH 4.71 mIU/L 0.40-4 .50 high Not Available [employer] [place] [address] [place], [address], 04/10/2023 13:01:46 04/02/20 23 04/10/2023 TSH+F REE T4 T4, free 1.2 NG/dL 0.8-1. 8 normal Not Available [employer] [address], [address], 04/10/2023 13:01:46 04/25/20 23 05/01/2023 DEXAM ETHAS [...] for clini shana purpo ses. Not Available [employer] [facility] [address] [place], [address], 05/01/2023 13:50:36 04/25/2005/01/2023 CORTI LAURA, A.M. cortisol, A.M. 1.0 mcg/d L low Refer ence Range 8 a.m. (7-9 a.m.) Speci men: 4.0-2 2.0 Not Available [employer] [facility] [address] [address], [place], [address], 05/01/2023 13:50:37 03/04/20 23 09/24/2022 DEXA, axial skele ton No observ ation record ed. [email or web address] Not Available 2022 16:24:56 Result Notes None recorded. Problems Name Problem SNOMED Code Status Onset Date Resolution Date Notes Provider Name and Address Organization Details Recorded Time Postmenopausa l osteoporosis 498926237 Active 2021 Not Available [facility] 3 00:53:43 Enlarged uterus 984421608 Active Not Available [facility] 3 00:53:43 Low back pain 618160572 Active Not Available [facility] 3 00:53:43 Menometrorrha susan 775541213 Active Not Available [facility] 3 00:53:43 Dyslipidemia 798191964 Active 2021 Not Available [facility] 3 00:53:43 Impaired fasting glycemia 763290522 Active 2021 Not Available [facility] 3 00:53:43 Irregular periods 96875058 Active Not Available [facility] 3 00:53:43 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 Procedures Surgical History Date Name Laterality Status Provider Name and Address Organization Details Recorded Time Ablation completed Not Available [facility] 00:46:51 Removal of ovary(s) completed Not Available [facility] 01/30/2023 00:46:51 Hand completed Not Available [facility] 12/2022 00:46:51 Imaging Results Imaging Date [...] medicatio n hives severe Not available 01/30/2023 68898 RxNorm Not Available [facility] 3 01:01:58 1272 sulfameth oxazole / trimethop rim medicatio n hives moderate Not available 01/30/2023 03079 RxNorm Not Available [facility] 3 01:01:58 1273 Product containin g penicilli n (product) medicatio n hives severe Not available 01/30/2023 20816 8001 SNOMED Not Available [facility] 3 01:01:58 1274 erythromy clara medicatio n anaphylax is severe Not available 01/30/2023 4053 RxNorm Not Available [facility] 3 01:01:58 1275 amoxicill in medicatio n hives mild Not available 01/30/2023 723 RxNorm child oropeza Not Available [facility] 3 01:01:58 Medications Name Sig [...] /min 61 /min 97.8 [degF] 97.6 [degF] 51546.4 5 g 35957.9 9 g 110 mm[Hg] 75 mm[Hg] 110 mm[Hg] 75 mm[Hg] Not Available [facility] 3 00:51:24 Date Recorded Body height Body mass index (BMI) Body weight Body temperature Heart rate Systolic blood pressure Diastolic blood pressure Provider Name and Address Organization Details Last Updated DateTime 3 170.18 cm 19 kg/m2 00049.8 3 g 97.8 [degF] 62 /min 130 mm[Hg] 84 mm[Hg] Brandyra Gifforddelmy G[facility] [employer] [facility] 3 12:31:20 Date Recorded Body height Body mass index (BMI) Body weight Body temperature Heart rate Systolic blood pressure Diastolic blood pressure Provider Name and Address Organization Details Last Updated DateTime 3 170.18 cm 19.1 kg/m2 04059.9 9 g 97.4 [degF] 69 /min 124 mm[Hg] 80 mm[Hg] Karen Esparza MA [facility] [employer] [facility] 3 12:37:26 Social History Question Answer Notes LastModified by Organizat ion Details LastModified Time Tobacco Smoking Status Never Smoker EMELIA Moss, [facility] [employer] [facility] 08/22/2023 12:26:49 What Is Your Level Of Alcohol Consumption? Moderate [id number] Information not available 01/30/2023 What Is Your Level Of Caffeine Consumption? 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 [id number] Information not available 01/30/2023 Do You [...] SNOMED-CT Code Diagnosis ICD10 Code Diagnosis Note [id number] [facility] [place] [address] [place] [address] 08/22/2021 00:00:00 08/22/2021 09:29:00 [id number] [facility] [place] [address] [place] [address] 04/09/2022 00:00:00 04/09/2022 13:23:42 [id number] [facility] [place] [address] [place] [address] 10/18/2022 00:00:00 10/18/2022 14:58:02 [id number] Evelin Bolden MD [facility] [place] [address] [place] [address] 03/29/2023 12:02:13 03/29/2023 13:16:18 Postmenopausal osteoporosis [id number] M81.0 Most recent bone density scan revealed [...] hypercorti solic state. Impaired f asting glycemia 314771697 R73.01 A1C 5.4%- glucose in range. Her [...] she chooses to go outside of the [facility] to obtain labwork she was [...] in her case. She voiced understand ing. [id number] Evelin Bolden MD [facility] [place] [address] [place] [address] 08/22/2023 12:26:03 08/22/2023 12:59:08 Postmenopausal osteoporosis 519288280 M81.0 Most recent bone density scan revealed [...] Keane Member ID Guarantor Name 03/29/2023 1 [employer] - OPEN ACCESS Catarina StudySoupitt [id number] OI Catarina Yodit Earnestitt 08/22/2023 1 [employer] - OPEN ACCESS [employer]quirly[employer] [id number] OI Catarina Yodit Earnestjose Notes Date Note Type Note Provider Name and Address Organization Details Recorded Time 03/29/2023 text/html 58 yo female com es in for follow up in management of postmenopausal osteoporosis, impaired fasting glucose last seen in Oct at that time we continued calcium and vitamin D support along with natural insulin sensitizers. 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 on Saturday and not planning to start [...] pg/mLcalcium 9.7 mg/dL last bone density from 10/22:T score of -3.2 of LST score -2.0 of total left hipT score of -2.4 of total right hip Workup in past for bone loss:Repeat labwork for cortisol from 06/21:24 hour urinary cortisol 59.5 ug/24 hourdexa suppression 1.1 ug/dL off HRT so considered negativesalivary cortisol negative x 20.06 ug/dL0.07 ug/dLImaging from 02/19:normal MRI pituitarynormal adrenal glands Evelin Bolden MD [address] [facility] [address], [place], [address], [employer] [facility] [employer] 03/29/2023 13:55:23 08/22/2023 text/html 58 yo female [...] and citrus. Evelin Bolden MD [address], [address], [place], [address], [employer] [facility] [employer] 08/22/2023 13:23:54 OBGyn Episode No OBEpisode recorded.
[2025-01-21] MEDS: LACTATED RINGERS 1,000 ML 30 ML IV CONT ×2 (06:30→09:20)
--- NOTE | 2025-01-21 06:55 | P.PNAN_ITS ---
Anes - Initial Pre Proc Eval Procedure: Operation Date: 01/21/25 07:30 Proposed Procedures p Robotic Assisted Total Laparoscopic Hysterectomy with Right Salpingo- oophorectomy - Steven Enriquez MD Date/Time: 01/21/25 06:55 Surgeon: Steven Enriquez MD Pre Op Diagnosis: Uterine hypertrophy Patient Data Age: 59 Gender: F Height: 1.7 m Weight: 56.6 kg Allergies Allergy/AdvReac Type Severity Reaction Status Date / Time Sulfa (Sulfonamide Allergy Mild rash Verified 01/18/25 13:21 Antibiotics) sulfamethoxazole Allergy Mild rash Verified 01/18/25 13:21 erythromycin base Allergy Unknown throat Verified 01/18/25 13:21 swelling Penicillins Allergy Unknown rash Verified 01/18/25 13:21 sulfamethizole Allergy Unknown rash Verified 01/18/25 13:21 tetracycline Allergy Unknown Rash Verified 01/18/25 13:21 trimethoprim Allergy Unknown rash Verified 01/18/25 13:21 Home Medications ?Medication ?Instructions ?Recorded ?Confirmed ?Type pimecrolimus 1 % topical cream 1 applic topical BID 02/01/21 01/18/25 History (Elidel) multivitamin 1 tablet PO DAILY 01/28/23 01/18/25 History atorvastatin 40 mg tablet 40 mg PO DAILY #30 tabs 05/01/23 01/18/25 Rx ezetimibe 10 mg tablet 10 mg PO DAILY #30 tabs 05/01/23 01/18/25 Rx Lactobacillus 1 cap PO DAILY 08/30/23 01/18/25 History acidophilus-Bifidobac.animalis 2.5 billion cell capsule (Daily Probiotic) pantoprazole 20 mg tablet,delayed 20 mg PO DAILY #30 tabs 03/09/24 01/18/25 Rx release epinephrine 0.3 mg/0.3 mL 0.3 mg (0.3 mL) IM ONCE PRN 04/24/24 01/18/25 Rx injection, auto-injector (Auvi-Q) anaphylaxis #2 ea pen needle, diabetic 31 gauge x #100 ea 01/18/25 01/18/25 Rx 3/16 (BD Ultra-Fine Mini Pen Needle) teriparatide 20 mcg/dose (600 20 mcg (0.08 mL) subcut DAILY 90 01/18/25 01/18/25 Rx mcg/2.4 mL) subcutaneous pen days #7.2 mL injector (Forteo) Patient hx anesthesia problems: post op nausea/vomiting Family hx anesthesia problems: none Results Review: All pre-operative results and documents have been reviewed as part of the pre- operative evaluation. [facility] Past Medical History Medical History (Updated 01/21/25 @ 07:00 by Ian Killian MD) CAD (coronary artery disease) minimal evidence on calcium scan Fracture of pelvis Anal skin tag Bright red blood per rectum Hyperlipidemia Lumbar spinal stenosis Screening mammogram, encounter for Acne Heart murmur GERD (gastroesophageal reflux disease) Rash Surgical History Surgical History S/P left oophorectomy (05/06/98) laparoscopic left oopherectomy / cystadenoma History of gynecological procedure (09/07/04) hscope EMB / Benign S/P tendon repair (10/22/08) finger tendon surgery S/P tendon repair (03/02/09) finger tendon surgery Hx of dilation and curettage (06/02/15) Hscope D&C/ Novasure Ablation Family History Family History Mother Heart disease Hypertension Embolism Sibling Alcohol abuse sister and brother Grandparent No problems noted. Other Breast cancer maternal aunt Social History Social History Smoking status: Never smoker Second hand tobacco smoke exposure: No Alcohol intake: never Drinks per week: 4 Alcohol use details: weekends Substance use: never Substance use type: does not use Do You Feel Safe in your Home?: Yes Lack of Transportation: No Lack of Food: Never True Current Housing: I Have Housing Concerned About Future Housing: No Difficulty Paying Gas/Electric Bills: No Difficulty Paying for Meds: No Currently Unemployed: No Education: Bachelor's Degree Difficulty w/ Childcare or Family Care: No Living arrangements: with family Additional living arrangements comments: spouse Occupation/Education: retired Additional occupation/education comments: [employer] of [id number] Gender identity (if verbalized by the patient): Female Sexual Orientation (if Verbalized by the Patient): Straight or Heterosexual Spiritual care concerns: No Anes - Eval Final PreProcedure Day of Procedure 01/21/25 06:55 Patient weight: thin Heart: regular rate and rhythm Lungs: clear to auscultation Airway: Mallampati scale class 1 Neurological: alert and oriented Last oral intake: >/= 8 hours ASA classification: II Emergent: no Anesthetic plan: proceed Anesthesia type and monitoring: general ETT and standard monitoring Results Review: All pre-operative results and documents have been reviewed as part of the pre- operative evaluation. Informed Consent: The patient's anesthetic plan and its attendant risks and benefits were discussed with the patient/family/POA. Questions were solicited and answers provided to the satisfaction of the patient/family/POA.
[2025-01-21] MEDS: ACETAMINOPHEN 500 MG TABLET 1000 MG PO ×3 (07:08→18:08)
[2025-01-21] MEDS: KETOROLAC 15 MG/ML VIAL (*BKC) IV PUSH (07:08)
[2025-01-21] MEDS: SCOPOLAMINE 1 MG PATCH 1 PATCH TRANSDERM (07:09)
--- NOTE | 2025-01-21 07:14 | WPDHPUPDATE1 ---
History and Physical Update Update Date/Time: 01/21/25 07:14 History and Physical has been reviewed, including an updated exam of the patient. There are NO changes in the patient's condition. Risks, benefits, and alternatives have been discussed and questions answered. Patient agrees to proceed with procedure.
[2025-01-21] MEDS: ceFAZolin 2 GM/D5W 50 ML 2 GM/50 ML BAG IVPB (07:29)
--- NOTE | 2025-01-21 09:17 | W.PM.PROC2 ---
Procedure Note - Detailed Date of Procedure 01/21/25 Pre-op Diagnosis 1. Postmenopausal bleeding 2. Adnexal mass Post-op Diagnosis Same Procedure Performed 1. Robotic assisted total laparoscopic hysterectomy 2. Robotic assisted left salpingectomy 3. Robotic assisted right salpingo-ophorectomy Surgeon Steven Enriquez MD Anesthesia General Findings 1. Uterus without any significant abnormalities 2. Left ovary surgically absent Description of Procedure Patient prepped and draped usual manner for this procedure. Cervical instruments were placed for uterine mobility throughout the case. Abdominal trocar sites were marked and trocars were placed under direct visualization. These were attached to the [employer] system and instruments were placed under direct visualization. Surgeon moved to the console. Left mesial salpinx was cauterized cut left tube was removed without difficulty. Left ovary was surgically absent. Left round ligament was cauterized and cut bladder flap was developed without difficulty and the posterior leaf the broad ligament was also incised. Uterine vessels on the left were skeletonized cauterized and cut. Right infundibulopelvic ligament was then cauterized and cut and the mesial salpinx cauterized and cut to separate the ovary and tube from the pelvic sidewall. Round ligament was cauterized and cut and the bladder flap was extended from the left and the posterior leaf was incised. Uterine vessels were skeletonized cauterized and cut. Posterior colpotomy incision was then made and this was carried circumferentially to separate the cervix from the vagina and the uterus tube and ovary were delivered into the vagina. Vaginal cuff was then closed using V lock suture from the right angle to midline and from left angle midline with good approximation hemostasis noted. Hematoma was placed empirically over all of the incisions sites as well as the vaginal cuff. Gas was allowed to escape trocars removed and incisions were approximated using 4-0 Monocryl. Patient was sent to recovery room in stable condition. Estimated Blood Loss 100 Drains No Packing No Pathology Yes Complications No immediate complications Condition Stable Disposition PACU [facility] Billing Surgery - Charge Forward: Surgery Billing
[2025-01-21] MEDS: fentaNYL CITRATE INJ (*CRX) 100 MCG/2 ML VIAL 25 MCG IV PUSH ×2 (10:10→10:15)
--- NOTE | 2025-01-21 11:08 | ADMGEN ---
This patient, Catarina Nuno, was admitted to OB 2nd Floor Room 283-00. Patient/family oriented to hospital policies and general routines including ID bracelet, bed and alarms, visiting hours, pain management, procedures, bathroom and other care routines, personal items, smoking policy, room service/diet, and visiting hours. Information on how to activate the Rapid Response Team has been discussed. Patient/Family are encouraged to report perceived risks to care and to ask questions if they do not understand what they are told or what they should do.
[2025-01-21] MEDS: KETOROLAC 30 MG/ML VIAL (*BKC) IV PUSH ×2 (12:15→18:08)
[2025-01-21] MEDS: SIMETHICONE 80 MG TAB.CHEW PO (12:16)
[2025-01-21] MEDS: DEXTROSE 5%/LACTATED RINGERS 1,000 ML 125 ML IV CONT (12:21)
[2025-01-21] MEDS: ONDANSETRON INJ 4 MG/2 ML VIAL IV PUSH (17:26)
[2025-01-22] MEDS: ACETAMINOPHEN 500 MG TABLET 1000 MG PO ×2 (01:06→07:56)
[2025-01-22] MEDS: KETOROLAC 30 MG/ML VIAL (*BKC) IV PUSH (01:09)
[2025-01-22 01:14] VITALS: BP 121/82; PULSE 65; RESP 14; TEMP 37.2; O2SAT 99
[2025-01-22 05:00] VITALS: BP 131/79; PULSE 77; RESP 14; TEMP 36.7; O2SAT 98
[2025-01-22 06:35] LABS: Basophils Percent Auto 0.4 % (0.2-1.2); Eosinophils Percent Auto 0.4 % (0-4.4); Hematocrit 37.3 % (37.0-47.0); Hemoglobin 12.9 g/dL (12.0-15.0); Immature Granulocyte Absolute 0.01 K/mm3 (0.00-0.031); Immature Granulocyte Percent A 0.1 % (0-0.5); Lymphocytes Absolute Auto 2.21 K/mm3 (0.9-3.2); Lymphocytes Percent Auto 26.8 % (18.3-44.2); Mean Corpuscular HGB Conc 34.6 g/dl (32-36); Mean Corpuscular Hemoglobin 31.2 pg (26-34); Mean Corpuscular Volume 90.3 fl (80-100); Monocytes Absolute Auto 0.7 K/mm3 (0.1-0.6); Monocytes Percent Auto 8.7 % (2.6-8.5); Neutrophils Absolute Auto 5.3 K/mm3 (1.3-6.7); Neutrophils Percent Auto 63.6 % (45.5-73.1); Platelet Count Result 188 k/mm3 (150-375); Red Blood Count 4.13 M/mm3 (4.2-5.4); Red Cell Distribution Width 12.4 % (11.5-14.5); White Blood Count 8.3 K/mm3 (4.5-10.0)
[2025-01-22 07:30] VITALS: BP 122/73; PULSE 67; RESP 16; TEMP 36.8; O2SAT 98
[2025-01-22] MEDS: SIMETHICONE 80 MG TAB.CHEW PO (07:56)
[2025-01-22] MEDS: IBUPROFEN 600 MG TABLET PO (07:57)
[2025-01-22] MEDS: DOCUSATE SODIUM 100 MG CAPSULE PO (08:12)
== END 2025-01-22 09:47 | disposition home or self-care (01) ==
LOC: ANHSURGERY 06:02 → ANHOB2 13:46
PROVIDERS: PCP Family Medicine; Visit Provider Obstetrics & Gynecology
PROC: (CPT 58571; principal; 2025-01-21 07:30)
DX: N95.0 Postmenopausal bleeding (principal); D27.0 Benign neoplasm of right ovary
CPT/HCPCS: 58571; S2900; 36415; 85025; 88307; 99199; A9270; J0690; J1100; J1885; J2250; J2405; J2704; J3010; J7030; J7120; J7121

== ENCOUNTER 2025-02-08 11:20 | Outpatient (CLI) | payer OTHER, SELFPAY ==
--- NOTE | ~2025-02-08 | MM_ITS ---
EXAMINATION: MM screening angelica BI w rosio HISTORY: Screening mammogram TECHNIQUE: Craniocaudal and mediolateral oblique 3-D tomosynthesis images were obtained and synthetic 2-D images were generated. CAD analysis was submitted and interpreted. COMPARISON: 02/03/2024, 01/28/2023, 01/24/2022 BREAST PARENCHYMAL COMPOSITION:Dense: The breasts are heterogeneously dense, which may obscure small masses. FINDINGS: No suspicious mass, calcification, or architectural distortion are identified in either thalia ast to suggest malignancy. There has been no suspicious interval change. IMPRESSION: No mammographic evidence of malignancy. Recommend routine screening mammography in one year. BI-RADS Category 1: Negative Reviewed, dictated and finalized at location .
== END 2025-02-08 11:21 | disposition home or self-care (01) ==
LOC: MICIMG 11:21
PROVIDERS: PCP Family Medicine; Visit Provider Obstetrics & Gynecology
DX: Z12.31 Encounter for screening mammogram for malignant neoplasm of breast (principal)
CPT/HCPCS: 77063; 77067

== ENCOUNTER 2025-04-23 15:43 | Emergency (ER) | payer OTHER, SELFPAY ==
--- NOTE | ~2025-04-23 | XR_ITS ---
HISTORY: fell while walking today on trail, Lt elbow pain/swelling COMPARISON: None TECHNIQUE: 3 views of the left elbow were performed FINDINGS: No acute fracture is identified. Elevation of the anterior fat pad is identified, consistent with a moderate joint effusion. Remaining overlying soft tissues are otherwise unremarkable. Bone mineralization is age-appropriate. IMPRESSION: Moderate joint effusion without acute fracture identified. Reviewed, dictated and finalized at location A.
[2025-04-23 15:59] VITALS: BP 129/86; PULSE 72; RESP 16; TEMP 36.8; O2SAT 100
--- NOTE | 2025-04-23 16:10 | ED_ITS ---
HPI - Extremity Injury (Upper) General Chief Complaint: Extremity Injury, Upper Stated Complaint: L ELBOW INJURY Time Seen by Provider: 04/23/25 16:47 Source: patient, RN notes reviewed and old records reviewed Mode of arrival: ambulatory Limitations: no limitations History of Present Illness HPI narrative: 60-year-old female who presents to [facility] with injury to left elbow after falling today while walking bike trail. Patient reports pain to the left elbow region is able to pronate and supinate her forearm. Patient reports pain with movement of the elbow and some slight swelling. Ice applied in clinic. complaint: injury to: left and elbow Onset (ago): hour(s) (1500 today) Other injuries: none Place: outdoors Severity scale (1-10): 4 Treatments prior to arrival: other (ice applied in clinic) Related Data Home Medications ?Medication ?Instructions ?Recorded ?Confirmed ?Last Taken ?Type pimecrolimus 1 % topical cream 1 applic topical BID 02/01/21 04/23/25 Unknown History (Elidel) multivitamin 1 tablet PO DAILY 01/28/23 04/23/25 01/18/25 History Lactobacillus 1 cap PO DAILY 08/30/23 04/23/25 01/18/25 History acidophilus-Bifidobac.animalis 2.5 billion cell capsule (Daily Probiotic) Allergies Allergy/AdvReac Type Severity Reaction Status Date / Time Sulfa (Sulfonamide Allergy Mild rash Verified 04/23/25 16:00 Antibiotics) sulfamethoxazole Allergy Mild rash Verified 04/23/25 16:00 erythromycin base Allergy Unknown throat Verified 04/23/25 16:00 swelling Penicillins Allergy Unknown rash Verified 04/23/25 16:00 sulfamethizole Allergy Unknown rash Verified 04/23/25 16:00 tetracycline Allergy Unknown Rash Verified 04/23/25 16:00 trimethoprim Allergy Unknown rash Verified 04/23/25 16:00 Review of Systems Review of Systems: CONSTITUTIONAL: Denies fever, chills, or sweats. EYES: Denies visual changes, redness, or discharge. ENT: Denies rhinorrhea, congestion, sore throat, or otalgia. CARDIOVASCULAR: Denies chest pain, palpitations, or edema. RESPIRATORY: Denies cough or dyspnea. GASTROINTESTINAL: Denies abdominal pain, nausea, vomiting, or diarrhea. GENITOURINARY: Denies dysuria or hematuria. SKIN: Denies rash or itching. MUSCULOSKELETAL: Denies back pain,positive for left elbow pain from fall , or myalgia. NEUROLOGIC: Denies headache, numbness, or weakness. PSYCHIATRIC: Denies anxiety or depression. All systems reviewed & are unremarkable except as noted in HPI and below [facility] Past Medical History Medical History CAD (coronary artery disease) minimal evidence on calcium scan Fracture of pelvis Anal skin tag Bright red blood per rectum Hyperlipidemia Lumbar spinal stenosis Screening mammogram, encounter for Acne Heart murmur GERD (gastroesophageal reflux disease) Rash Surgical History Surgical History History of robot-assisted laparoscopic hysterectomy (01/21/25) Robotic assisted total laparoscopic hysterectomy 2. Robotic assisted left salpingectomy 3. Robotic assisted right salpingo-ophorectomy S/P left oophorectomy (05/06/98) laparoscopic left oopherectomy / cystadenoma History of gynecological procedure (09/07/04) hscope EMB / Benign S/P tendon repair (10/22/08) finger tendon surgery S/P tendon repair (03/02/09) finger tendon surgery Hx of dilation and curettage (06/02/15) Hscope D&C/ Novasure Ablation Family History Family History Mother Heart disease Hypertension Embolism Sibling Alcohol abuse sister and brother Grandparent No problems noted. Other Breast cancer maternal aunt Social History Social History Smoking status: Never smoker Second hand tobacco smoke exposure: No Alcohol intake: never Drinks per week: 4 Alcohol use details: weekends Substance use: never Substance use type: does not use Do You Feel Safe in your Home?: Yes Lack of Transportation: No Lack of Food: Never True Current Housing: I Have Housing Concerned About Future Housing: No Difficulty Paying Gas/Electric Bills: No Difficulty Paying for Meds: No Currently Unemployed: No Education: Bachelor's Degree Difficulty w/ Childcare or Family Care: No Living arrangements: with family Additional living arrangements comments: spouse Occupation/Education: retired Additional occupation/education comments: [employer] Gender identity (if verbalized by the patient): Female Sexual Orientation (if Verbalized by the Patient): Straight or Heterosexual Spiritual care concerns: No Comments At time of signature, agree with nursing past medical, surgical, social and family history. There is no relevant family history pertinent to the presenting complaint Exam Narrative: GENERAL: Well-appearing, well-nourished, and in no acute distress. HEAD: Normocephalic, atraumatic. EYES: PERRLA and EOMI. ENT: Nares clear, no rhinorrhea or epistaxis. Mucous membranes moist. NECK: Supple.no lymphadenopathy CHEST: Clear to auscultation. No respiratory distress.SAO2 100% on room air HEART: Regular rate and rhythm. No murmur heard. Normal peripheral pulses. ABDOMEN: Soft, nontender, nondistended, normal active bowel sounds. EXTREMITIES: Normal range of motion. No edema. Exception noted to pain in left elbow from fall, slight swelling at elbow, patient is able to pronate and supinate left forearm, strong pulses left arm, denies any tinglig or numbness to left arm or hand, movement of elbow increases pain NEURO: No focal deficits. Alert and oriented x3. Course Course Emergency Course: Patient is aware of diagnosis, understands and agrees to treatment plan.? Anticipatory guidance given.? Patient agrees to follow-up as directed and is aware of reasons to seek care at the emergency department. Portions of this record may have been created with voice recognition software Level of Care: Express Care Visit Vital Signs Vital signs: Vital Signs Temperature 36.8 C 04/23/25 15:59 Pulse Rate 72 04/23/25 15:59 Respiratory Rate 16 04/23/25 15:59 Blood Pressure 129/86 04/23/25 15:59 Pulse Oximetry 100 04/23/25 15:59 Temperature 36.8 C 04/23/25 15:59 Pulse Rate 72 04/23/25 15:59 Respiratory Rate 16 04/23/25 15:59 Blood Pressure 129/86 04/23/25 15:59 Pulse Oximetry 100 04/23/25 15:59 Reviewed MDM - Extremity Injury (Upper) Differential Diagnosis Differential diagnosis: Likely other (contusion left elbow, joint effusion left elbow, fracture elbow,radial head fracture) Medical Records Attestation: I reviewed the patient's medical records. Imaging Data Attestation: I personally reviewed and interpreted this imaging study as follows: My impression: moderate joint effusion left elbow, no fracture identified Radiologist's impression: [facility] [address] [place] [address] [place] [address] XRay Report Signed Patient: Catarina Nuno : 1965 MR#: [id number] Age: 60 Acct:[id number] Loc: [facility] ADM Date: 04/23/25Attending Dr: Ordering Physician: Shannan Nieves APRN Date of Service: 04/23/25 Procedure(s): XR elbow LT min 3V Accession Number(s): [id number] cc: Panda Myrick MD; Shannan Nieves APRN~ HISTORY: fell while walking today on trail, Lt elbow pain/swelling COMPARISON: None TECHNIQUE: 3 views of the left elbow were performed FINDINGS: No acute fracture is identified. Elevation of the anterior fat pad is identified, consistent with a moderate joint effusion. Remaining overlying soft tissues are otherwise unremarkable. Bone mineralization is age-appropriate. IMPRESSION: Moderate joint effusion without acute fracture identified. Reviewed, dictated and finalized at location A. Please be advised this is a medical document. It is intended for hbvm-pf-fxci communication. It is written in medical language and may contain unfamiliar abbreviations or verbiage. Medical documents are intended to carry relevant information, facts as evident, and the clinical opinion of the practitioner at the time of the encounter. This report may have been done utilizing a voice recognition system. Attempts hong ve been made to correct errors. However, there may be uncorrected grammatical, spelling, and recognition errors present. The file time of this note does not necessarily represent the time of service. Dictated By: Ludmila Batres MD 04/23/25 1647 Signed By: <Electronically signed by Ludmila Batres MD in OV> Critical Care Time Critical Care Time Critical Care Time: No Discharge Plan Discharge Clinical Impression: Effusion of elbow joint, left, Arthralgia of left elbow Patient Disposition: Home Condition: Stable Instructions: Antibiotic Form, Arthralgia (ED), Swollen Joint (ED) Additional Instructions: Elastic wrap or orthopedic splint as directed for comfort for the next 5-7 days Tylenol for lesser pain Ibuprofen regularly for the next 2-3 days for the inflammation Follow-up with orthopedic surgeon if continued problems Follow-up with PCP if further problems or concerns Ice to the area 20-30 minutes 4-6 times a day Elevate above heart If your symptoms persist, change or worsen significantly before you can contact your personal physician then please, without delay, go to the emergency department for further evaluation. Follow-up with PCP in 7-10 days or sooner if needed Follow up with PCP soon in regards to your blood pressure which is elevated above threshold for referral. Blood pressure above 120/80 may indicate pre- hypertension. 129/86 Patient Language: [place] Island[place] Prescriptions: No Action pimecrolimus [Elidel] 1 % cream 1 applic topical BID multivitamin Tablet 1 tablet PO DAILY atorvastatin 40 mg tablet 40 mg PO DAILY Qty: 30 0RF ezetimibe 10 mg tablet 10 mg PO DAILY Qty: 30 4RF teriparatide [Forteo] 20 mcg/dose (600mcg/2.4mL) pen injector 20 mcg subcut DAILY 90 Days Qty: 7.2 5RF (DME) pen needle, diabetic [BD Ultra-Fine Mini Pen Needle] 31 gauge x 3/16 needle See Rx Instructions .Route Qty: 100 5RF Rx Instructions: use daily Daily Probiotic 2.5 billion cell Capsule 1 cap PO DAILY epinephrine [Auvi-Q] 0.3 mg/0.3 mL auto-injector 0.3 mg IM ONCE PRN (Reason: anaphylaxis) Qty: 2 3RF Rx Instructions: as a single dose; may repeat once Follow-up/Referrals: Panda Myrick MD [Primary Care Provider] - Time of Disposition: 17:04 Quality Aishwarya Coma Scale Eyes: Open Verbal: Oriented and Alert Motor: Follows Commands Bassett Coma Total Score: 15
== END 2025-04-23 17:12 | disposition home or self-care (01) ==
PROVIDERS: Emergency Provider Registered Nurse; PCP Family Medicine
DX: M25.422 Effusion, left elbow (principal); M25.522 Pain in left elbow; I25.10 Atherosclerotic heart disease of native coronary artery without angina pectoris; E78.5 Hyperlipidemia, unspecified; M48.061 Spinal stenosis, lumbar region without neurogenic claudication; R01.1 Cardiac murmur, unspecified; K21.9 Gastro-esophageal reflux disease without esophagitis
CPT/HCPCS: 73080; 99213; G0463

== ENCOUNTER 2025-07-13 13:48 | Outpatient (CLI) | payer OTHER, SELFPAY ==
--- OUTSIDE RECORDS SUMMARY | 2025-07-13 14:14 | XMS_ITS | Clinical Summary ---
Author Organization [facility] Address [address] [place] [address] Care Team Providers Care Pipe Washer Name Role Phone Panda Myrick MD Primary Care Provider Allergies Active Allergy Reactions Criticality Noted Date Comments Amoxicillin B[place] Unknown 03/08/2021 Allergy patch tested positive Benzalkonium Chloride Unknown 03/08/2021 Allergy patch tested positive Cetrimonium Ethel Unknown 03/08/2021 Allergy patch tested positive [place] Chloride Unknown 03/08/2021 Allergy patch tested positive [...] pain 10/12/2019 Menometrorrhagia 10/12/2019 Osteochondritis dissecans 10/12/2019 Encounters Date Type Department Care Team Description 06/11/[address] [address] Phil Doty RN from Last 3 Months Surgical History Surgery Date Site/Laterality Comments HAND [...] on file Legal Sex Female 2:33 AM [facility] Gender Identity Female 02/28/2021 6:37 AM CDT [...] 54.9 kg (121 lb) 10/26/2019 9:52 AM [facility] Height 170.2 cm (5' 7) 10/26/2019 9:52 AM [facility] Body Mass Index 18.95 10/26/2019 9:52 AM [facility] Plan of Treatment Health Maintenance Due Date Last Done Comments Breast Cancer Screening-Mammogram 1965 Cervical Cancer Screening 1965 Colon Cancer Screening-Colonoscopy 1965 Depression Screening 1965 Hepatitis C Screening 1965 Regular Well Visit/Exam 18-64 1981 Zoster Vaccine (1 of 2) 2013 Influenza Vaccine (#1) 2025 DTaP/Tdap/Td Vaccine (2 - Td or Tdap) 10/20/2028 10/20/2018 Hepatitis B Screening Completed 11/21/2018 , 10/20/2018 Pneumococcal vaccine <65 Aged Out No longer eligible based on patient's age to complete this topic Insurance Pledge51 [facility] [employer] Address: [address] [place] [address] [facility] [address] [employer] Address: Pledge51 [facility] [address] [place] [address] [facility] [address] [facility] Care Teams Pipe Washer Relationship Specialty Start Date End Date Panda Myrick MD [address] [facility] [address] [place] [address] PCP - General Family Medicine 04/16/19
[2025-07-13 14:37] LABS: Albumin Level 4.6 g/dL (3.5-5.1); Anion Gap 5 mmol/L (4-12); Blood Urea Nitrogen 19 mg/dL (7-17); Calcium 9.8 mg/dL (8.4-10.2); Carbon Dioxide 32 mmol/L (22-30); Chloride 100 mmol/L (98-107); Estimated Glomerular Filt Rate > 60; Glucose 78 mg/dL (65-110); Potassium 4.3 mmol/L (3.4-5.0); Sodium 137 mmol/L (137-145)
== END 2025-07-13 13:49 | disposition home or self-care (01) ==
LOC: ANHLAB 13:48
PROVIDERS: PCP Family Medicine; Visit Provider Internal Medicine Endocrinology, Diabetes & Metabolism
DX: M81.0 Age-related osteoporosis without current pathological fracture (principal)
CPT/HCPCS: 36415; 80069